=== PATIENT | male | born 1945 | race African-American/Black ===

== ENCOUNTER 2016-04-16 14:13 | Inpatient (IN) ==
--- NOTE | 2016-04-16 14:54 | EKG Report ---
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
[2016-04-16] MEDS ORDERED: SODIUM CHLORIDE 0.9% 1,000 ML IV STA (15:24)
[2016-04-16 15:40] LABS: Basophils % 0.1 % (0.0-0.8); Eosinophils # 0.1 10*3/uL (0.0-0.87); Eosinophils % 1.3 % (0.00-10.9); Hematocrit 36.3 VOL% (42.0-52.0); Hemoglobin 11.7 GM/DL (14.0-18.0); Immature Granulocytes % 0.4 %; Immature Granulocytes Absolute 0.03 #; Lymphocytes # 0.4 10*3/uL (1.4-4.0); Lymphocytes % 5.3 % (21.2-54.2); Mean Corpuscular HGB Conc 32.2 GM/DL (32-36); Mean Corpuscular Hemoglobin 29 PG (27-34); Mean Corpuscular Volume 88.3 FL (87-102); Mean Platelet Volume 11.4 FL (9.6-12.0); Monocytes # 0.6 10*3/uL (0.11-0.8); Monocytes % 8.1 % (1.7-12.7); Neutrophils # 5.7 10*3/uL (1.4-7.4); Neutrophils % 84.8 % (38.7-73.9); Red Blood Count 4.11 10*6/uL (3.8-5.5); Red Cell Distribution Width 14.1 % (9.3-17.3); White Blood Count 6.8 10*3/uL (4.5-13.71)
[2016-04-16 15:41] LABS: Platelet Count 84 10*3/uL (130-400)
--- NOTE | 2016-04-16 15:49 | XRay Report ---
Referring Physician: Neal Ramos Exam: XR chest 1V portable Date: April 16, 2016 at 2:58 PM Reason: Shortness of breath Comparison: Chest one view portable November 19, 2015 Findings: The cardiac silhouette is upper normal in size. There are scattered opacities within the mid and lower lung zones bilaterally, and the interstitial markings are prominent. This could represent pulmonary edema and/or pneumonia. No pneumothorax or definite pleural fluid is identified. No acute osseous process is seen. Surgical clips are noted at the left neck. Impression: There are scattered opacities within the mid and lower lung zones bilaterally, mainly in the right infrahilar region. The interstitial markings are also prominent. This could represent pulmonary edema and/or pneumonia. Followup is recommended to confirm resolution. PROCEDURE INTERPRETED AT [facility] DEPARTMENT OF RADIOLOGY Final Report Signed by: Dr. Berto Dugan
--- NOTE | 2016-04-16 15:49 | CT Report ---
CT head/brain wo con Indication: Altered metal status. CT BRAIN WITHOUT CONTRAST DLP: 921 mGy*cm Comparison: 05/11/2014. Date of admission: 04/16/2016. Technique: Axial noncontrast CT images of the brain were obtained. Findings: No acute hemorrhage, mass or mass effect. Generalized atrophy and patchy periventricular white matter hypodensity is present throughout both convexities. Cortical ventura-white junction and structures of the basal ganglia are well-defined. No bone lesions are shown. Internal auditory canals are symmetric. Because of thickening of the maxillary and ethmoid air cells noted. Impression: No acute intracranial pathology. Generalized atrophy and changes consistent with microvascular disease. Chronic maxillary and ethmoid sinus disease. PROCEDURE INTERPRETED AT [facility] DEPARTMENT OF RADIOLOGY Final Report Signed by: Elmer Johnson M.D.
[2016-04-16 15:59] LABS: Apearance,Urine CLOUDY (Clear); Bacteria,Urine Occasional /HPF (Few); Bilirubin,Urine Negative (Negative); Blood, Urine Small mg/dL (Negative); Glucose,Urine (UA) >=500 mg/dL (Negative); Ketones,Urine 5 mg/dL (Negative); Nitrite,Urine Negative (Negative); Protein,Urine >=500 MG/DL; RBC,Urine 2 /HPF (0-4); Squamous Epithelial Cell,Urine Occasional /HPF (0-10); Urine Color Yellow (Yellow); Urine Specific Gravity 1.014 (1.001-1.035); WBC,Urine 10 /HPF (0-6)
[2016-04-16 16:05] LABS: INR 1.1; PT Patient Result 11.7 SECS; Partial Thromboplastin Time 34.5 SECS (0-40)
[2016-04-16 16:07] LABS: Albumin 3.5 G/DL (3.4-5.0); Bilirubin,Total 1.1 MG/DL (0.2-1.0); Lactic Acid 2.2 MMOL/L (0.4-2.0); Osmolality,Calculated 290.3 MOS/KG (273-304); Potassium 3.4 MMOL/L (3.5-5.1); Total Protein 6.7 G/DL (6.4-8.3)
[2016-04-16 16:14] LABS: Barbiturates Screen,Urine Negative (Negative); Benzodiazepines Screen,Urine Negative (Negative); Cannabinoid Screen,Urine Negative (Negative); Opiate Screen,Urine Negative (Negative); Phencyclidine Screen,Urine Negative (Negative)
[2016-04-16 16:23] LABS: Troponin I Only 0.202 NG/ML (0.00-0.045)
[2016-04-16] MEDS ORDERED: cefTRIAXone 1,000 MG in SODIUM CHLORIDE 0.9% 100 ML IV STA (17:39)
--- NOTE | 2016-04-16 17:47 | Emergency Department Note ---
Jose Quintanilla Brittany, am scribing for, and in the presence of, Neal Ramos Jr., MD 14:55. Rachel Quintanilla Marvin Jr., MD, personally performed the services described in this documentation, ascribed by Karina Garcia in my presence, and it is both accurate and complete 747 . Arrival - Arrival Chief Complaint: Abdominal / Flank Pain Stated Complaint: projectile vomiting, fever, abdominal pain ED Nursing Triage Note: Patient transferred from dialysis for a complaint of projectile vomiting, right lower abdominal quadrant pain, and fever. His fever with Metro was 102.6, his current temperature is 99.1 Mode of Arrival: Stretcher Limitations: No Limitations Source: Patient, RN Notes Reviewed - History of Present Illness HPI Narrative: Patient is a 71 y/o black male presenting to the ED by EMS with c/o abdominal pain and vomiting with an onset of today. Patient states that while at dialysis , he began to "feel rough" and vomited four times. Patient notes that he felt fine prior to going to dialysis. He describes abdominal pain as "cramping while at dialysis, but feeling a little better now." Patient notes that he is slightly short of breath and notes this is something new for him, beginning today. He states that he did not know he had any fever today, per triage note patient en route to the ED had a fever of 102.6 and as of current temperature is 99.2. Patient denies having a history of heart problems. He is a patient of Dr. Valladares. Patient has no other complaint/pain in the ED at this time. Allergies/Adverse Reactions: Allergies Allergy/AdvReac Type Severity Reaction Status Date / Time No Known Drug Allergies Allergy Verified 11/19/15 12:30 Home Medications: Home Medications Medication Instructions Recorded Confirmed Type Amiodarone Tab [Cordarone Tab] 200 mg PO DAILY 03/27/16 03/27/16 History Aspirin [Ecotrin] 81 mg PO DAILY 03/27/16 03/27/16 History Atorvastatin [Lipitor] 20 mg PO DAILY 03/27/16 03/27/16 History Ciprofloxacin Tab [Cipro Tab] 500 mg PO Q12HR #20 tablet 03/27/16 Rx Doxazosin [Cardura] 1 mg PO BID 03/27/16 03/27/16 History Insulin Glargine [Lantus] 30 unit SUBCUT BEDTIME 03/27/16 03/27/16 History Isosorbide Mononitrate [Isosorbide 60 mg PO DAILY 03/27/16 03/27/16 History Mononitrate ER] Montelukast Tab [Singulair Tab] 10 mg PO BEDTIME 03/27/16 03/27/16 History Tamsulosin [Flomax] 0.4 mg PO BID 03/27/16 03/27/16 History Tizanidine HCl [Zanaflex] 2 mg PO Q6H #40 capsule 03/27/16 Rx hydrALAZINE TAB [Apresoline Tab] 100 mg PO TID 03/27/16 03/27/16 History predniSONE TAB [PredniSONE] 20 mg PO DAILY #15 tablet 03/27/16 Rx Calcium Acetate [Calcium Acetate] 667 mg PO 5X DAILY 04/16/16 04/16/16 History Review of System - Review of System 12 point system: reviewed and no additional remarkable complaints except as stated - Review of System Constitutional: Present: fever Respiratory: Present: respiratory distress Gastrointestinal: Present: abdominal pain, nausea, vomiting Medical,Surgical,& Family Hx - Medical History Cardio: History of: Hypertension Endocrine: History of: Diabetes Mellitus (IDDM) Renal: History of: Dialysis, Renal Failure (on dialysis on M-W-F right AV fistula) - Surgical History Orthopedic Surgeries: Surgical HX of;: Total Knee Replacement (Left knee x2) - Social History Smoking Status: Never smoker Frequency of Alcohol Use: None Type of Drug Use: None Exam Physical Examination: General: Well-developed well-nourished, no apparent distress. Very hard of hearing but can understand and follow along. Head: Normocephalic, atraumatic. Eyes: PERRLA, EOMI. Nose: No obvious acute deformities or discharge. Mouth: No obvious acute injury. Neck: Full range of motion without obvious pain. No midline tender to palpation. Lymphatic: no significant lymphadenopathy noted. Lungs: No rales or wheezing the patient slightly O2 sats is in the low to mid 90s. Heart: Tachycardiac, irregular, no obvious mummers. Abdomen: Soft nontender, nondistended, normal active bowel sounds. Skin: No obivous acute lesions noted Musculoskeletal: No gross deformities. Neurological: No focal findings, cranial nerves II through XII grossly normal. Psychiatric: Appropriate mood.. : Deferred Vital Signs: Vital Signs Temperature 99.1 F 04/16/16 14:22 Pulse Rate 125 H 04/16/16 14:22 Respiratory Rate 22 04/16/16 14:22 Blood Pressure 162/92 04/16/16 14:22 O2 Sat by Pulse Oximetry 93 L 04/16/16 14:22 Course Course Narrative: Differential diagnosis, nausea and vomiting, electrolyte disturbance, new onset atrial fibrillation, cardiopulmonary disease - Reevaluation(s) Reevaluation #1: Patient's condition unchanged. Heart rate still running in the 120s and 130s. Troponin is elevated. I spoke with Dr. Cardenas who said admit the patient to the hospitalist and she would consult. I called the hospitalist service and they accept this admission. Time: 17:14 Results - Labs CBC & BMP: 04/16/16 15:27 04/16/16 15:27 Lab Results: I have reviewed the patients labs Labs: Laboratory Tests 04/16/16 15:27 WBC 6.8 RBC 4.11 Hgb 11.7 L Hct 36.3 L MCV 88.3 MCH 29 MCHC 32.2 RDW 14.1 Plt Count 84 L MPV 11.4 Neut % (Auto) 84.8 H Lymph % (Auto) 5.3 L Mcdowell % (Auto) 8.1 Eos % (Auto) 1.3 Baso % (Auto) 0.1 Neut # (Auto) 5.7 Lymph # (Auto) 0.4 L Mcdowell # (Auto) 0.6 Eos # (Auto) 0.1 Baso # (Auto) 0.0 Immature Gran % 0.4 Nucleated RBC % 0.0 Immature Gran # 0.03 Nucleated RBCs # 0.00 Laboratory Tests 04/16/16 15:27 Urine Color Yellow Urine Appearance Cloudy Urine pH 6.0 Ur Specific [place] 1.014 Urine Protein >=500 Urine Glucose (UA) >=500 Urine Ketones 5 Urine Blood Small Urine Nitrate Negative Urine Bilirubin Negative Urine Urobilinogen 2.0 H Urine Leukocytes Trace Urine RBC 2 Urine WBC 10 Ur Squamous Epith Cells Occasional Urine Bacteria Occasional Laboratory Tests 04/16/16 15:27 Ammonia 15 Microbiology 04/16/16 15:27 Nasal Aspirate Influenza Types A,B Antigen (SHIV) - Final Negative for Influenza A Ag Negative for Influenza B Ag Laboratory Tests 04/16/16 04/16/16 04/16/16 15:27 15:27 15:27 INR 1.1 PT Patient/Control Mix 11.7 Circ Anticoag PTT 34.5 Sodium 141 Potassium 3.4 L Chloride 98 Carbon Dioxide 31 Anion Gap 15.4 H BUN 28 H Creatinine 7.20 H GFR Calculation 10 BUN/Creatinine Ratio 3.00 L Glucose 169 H Calculated Osmolality 290.3 Lactic Acid 2.2 H Calcium 8.0 L Total Bilirubin 1.10 H AST 24 ALT 17 Alkaline Phosphatase 63 Ammonia 15 Total Protein 6.7 Albumin 3.5 Globulin 3.2 Albumin/Globulin Ratio 1.0 L Urine Opiates Screen Negative Ur Barbiturates Screen Negative Ur Phencyclidine Scrn Negative U Amphetamine/Methamph Negative U Benzodiazepines Scrn Negative U Cocaine Metab Screen Negative U Cannabinoids Screen Negative Laboratory Tests 04/16/16 04/16/16 15:27 15:27 Troponin I 0.202 H Urine Opiates Screen Negative Ur Barbiturates Screen Negative Ur Phencyclidine Scrn Negative U Amphetamine/Methamph Negative U Benzodiazepines Scrn Negative U Cocaine Metab Screen Negative U Cannabinoids Screen Negative Serum Alcohol < 15 L - Diagnostic Findings Procedure: Chest x-ray: report reviewed by me (There are scattered opacities within the mid and lower lung zones bilaterally, mainly in the right infrahilar region. The interstitial markings are also prominent. This could represent pulmonary edema and/or pneumonia. Followup is recommended to confirm resolution. ), CT: report reviewed by me (head/brain wo contrast: No acute intracranial pathology. Generalized atrophy and changed consistent with microvascular disease. Chronic maxillary and ethmoid sinus disease.) Disposition Clinical Impression: Chronic kidney disease with end stage renal failure on dialysis, Vomiting, Elevated troponin, New onset atrial fibrillation, Febrile illness, Pneumonia Case discussed with: patient Disposition: Still a Patient Condition: Stable Time of Disposition: 17:47
[2016-04-16] MEDS ORDERED: cefTRIAXone 1,000 MG VIAL ONE (18:17)
--- NOTE | 2016-04-16 18:28 | Hospitalist History & Physical ---
Assessment and Plan - Time spent with patient Time spent with patient: Greater than 30 minutes (1) Chronic kidney disease with end stage renal failure on dialysis Status: Acute Current Visit: Yes (2) Febrile illness Status: Acute Current Visit: Yes (3) Vomiting Status: Acute Assessment and plan: we will admit pt and monitor start on cardizem infusion, ask cardiology to follow repeat troponin and EKG in am Pt will be admitted to Dr. Valladares who is functioning as a hospitalist this weekend, also pt's renal DrAnmol PRLex meds DVT prophylaxis routine labs in AM further plan and addendum to follow per Dr. Zelaya and Dr. Valladares Current Visit: Yes History of Present Illness Chief complaint: vomiting History of present illness: Mr. Ortega is a 71 year old male who presents to the ER today from dialysis. He states he had been on dialysis about 2 hours when he suddenly began to vomit. He says he vomited about 4 times and has been fine since. He denies feeling bad or nauseated prior to dialysis and feels well now. He denies recent illness, denies chest pain, shortness of breath. He was documented to have a fever of 102 at dialysis but his fever here was 99. He also tells me that when he was vomiting he had some left sided abdominal pain which has now resolved. He is hemodynamically stable at present, labs reveal a mildly elevated troponin, could be chronic due to his renal disease. Also noted to have elevated bilirubin. Will recheck. He was also noted to be in Atrial fibrillation at a rate of 120 on arrival to ER, he has been started on a Cardizem infusion and ER physician spoke with Dr. Cardenas concerning this and his elevated trop. Mr. Ortega has a PMH of HTN, DM, CKD with dialysis. PSH of dialysis access placement and left knee replacement. He does not smoke or drink. Still makes a little urine. Dr. Valladares is his renal Dr. Home Medications Medication Instructions Recorded Confirmed Type Amiodarone Tab [Cordarone Tab] 200 mg PO DAILY 03/27/16 03/27/16 History Aspirin [Ecotrin] 81 mg PO DAILY 03/27/16 03/27/16 History Atorvastatin [Lipitor] 20 mg PO DAILY 03/27/16 03/27/16 History Ciprofloxacin Tab [Cipro Tab] 500 mg PO Q12HR #20 tablet 03/27/16 Rx Doxazosin [Cardura] 1 mg PO BID 03/27/16 03/27/16 History Insulin Glargine [Lantus] 30 unit SUBCUT BEDTIME 03/27/16 03/27/16 History Isosorbide Mononitrate [Isosorbide 60 mg PO DAILY 03/27/16 03/27/16 History Mononitrate ER] Montelukast Tab [Singulair Tab] 10 mg PO BEDTIME 03/27/16 03/27/16 History Tamsulosin [Flomax] 0.4 mg PO BID 03/27/16 03/27/16 History Tizanidine HCl [Zanaflex] 2 mg PO Q6H #40 capsule 03/27/16 Rx hydrALAZINE TAB [Apresoline Tab] 100 mg PO TID 03/27/16 03/27/16 History predniSONE TAB [PredniSONE] 20 mg PO DAILY #15 tablet 03/27/16 Rx Calcium Acetate [Calcium Acetate] 667 mg PO 5X DAILY 04/16/16 04/16/16 History Allergies Allergy/AdvReac Type Severity Reaction Status Date / Time No Known Drug Allergies Allergy Verified 11/19/15 12:30 Medical,Surgical,& Family Hx - Medical History Cardio: History of: Hypertension Endocrine: History of: Diabetes Mellitus (IDDM) Renal: History of: Dialysis, Renal Failure (on dialysis on M-W-F right AV fistula) - Surgical History Orthopedic Surgeries: Surgical HX of;: Total Knee Replacement (Left knee x2) - Social History Smoking Status: Never smoker Frequency of Alcohol Use: None Type of Drug Use: None 12 point system: reviewed and no additional remarkable complaints except as stated Exam - Constitutional Vitals: Period Temp Pulse Resp BP Sys/Hernandez Pulse Ox Last 24 Hr 99.1 F-99.1 F 120-125 22-22 162-162/92-92 93 General appearance: no acute distress, over weight - Head Head exam: Present: normal inspection, normocephalic - Eye Eye exam: Present: EOMI, conjunctival injection. Absent: scleral icterus Pupils: Present: HERMELINDO, normal accommodation - ENT ENT exam: Present: normal exam, normal oropharynx - Neck Neck exam: Present: normal inspection. Absent: lymphadenopathy - Respiratory Respiratory exam: Absent: clear to auscultation bilaterally (coarse bilat, worse in the bases), wheezes - Cardiovascular Cardiovascular exam: Absent: regular rate and rhythm (afib), tachycardia - GI/Abdominal GI/Abdominal exam: Present: normal bowel sounds, soft. Absent: tenderness - Extremities Exam Extremities exam: Present: normal inspection, full ROM. Absent: edema - Back Exam Back exam: Present: normal inspection. Absent: muscle spasm - Neurological Exam Neurological exam: Present: alert, oriented X3 - Psychiatric Psychiatric exam: Present: normal affect, normal mood - Skin Skin exam: Present: normal color, warm, dry Results - Labs CBC & BMP: 04/16/16 15:27 04/16/16 15:27 Lab Results: I have reviewed the past 24 hour labs
[2016-04-16] MEDS ORDERED: AZITHROMYCIN INJ 500 MG in SODIUM CHLORIDE 0.9% 250 ML IV SCH (20:00)
[2016-04-16] MEDS: DILTIAZEM INJ 100 MG in SODIUM CHLORIDE 0.9% 100 ML IV SCH (22:03)
[2016-04-16] MEDS: MONTELUKAST 10 MG TABLET PO SCH (22:03)
[2016-04-16] MEDS: DOXAZOSIN 1 MG TABLET PO SCH (22:03)
[2016-04-16] MEDS: TAMSULOSIN 0.4 MG CAPSULE PO SCH (22:03)
[2016-04-16] MEDS: CALCIUM ACETATE 667 MG CAPSULE PO SCH (22:03)
[2016-04-17 06:29] LABS: Basophils % 0.2 % (0.0-0.8); Eosinophils # 0.1 10*3/uL (0.0-0.87); Eosinophils % 1.1 % (0.00-10.9); Hematocrit 30.7 VOL% (42.0-52.0); Hemoglobin 9.9 GM/DL (14.0-18.0); Immature Granulocytes % 0.6 %; Immature Granulocytes Absolute 0.03 #; Lymphocytes # 0.7 10*3/uL (1.4-4.0); Lymphocytes % 14.5 % (21.2-54.2); Mean Corpuscular HGB Conc 32.2 GM/DL (32-36); Mean Corpuscular Hemoglobin 29 PG (27-34); Mean Platelet Volume 11.4 FL (9.6-12.0); Monocytes # 0.6 10*3/uL (0.11-0.8); Neutrophils # 3.3 10*3/uL (1.4-7.4); Neutrophils % 70.6 % (38.7-73.9); Red Blood Count 3.45 10*6/uL (3.8-5.5); Red Cell Distribution Width 14.1 % (9.3-17.3); White Blood Count 4.6 10*3/uL (4.5-13.71)
[2016-04-17 06:42] LABS: Platelet Count 62 10*3/uL (130-400)
[2016-04-17 07:01] LABS: Calcium 7.6 MG/DL (8.5-10.1); Osmolality,Calculated 290.1 MOS/KG (273-304); Potassium 3.6 MMOL/L (3.5-5.1)
[2016-04-17 07:04] LABS: Hypochromasia Slight
[2016-04-17 07:05] LABS: Microcytosis 1+; Ovalocytes Slight; Platelet Estimate Decreased
[2016-04-17] MEDS ORDERED: AMIODARONE 200 MG TABLET PO SCH (09:00)
[2016-04-17] MEDS: TAMSULOSIN 0.4 MG CAPSULE PO SCH ×2 (09:45→21:11)
[2016-04-17] MEDS: ASPIRIN EC 81 MG TABLET PO SCH (09:45)
[2016-04-17] MEDS: ISOSORBIDE MONONITRATE 60 MG TABLET PO SCH (09:45)
[2016-04-17] MEDS: ATORVASTATIN 20 MG TABLET PO SCH (09:45)
[2016-04-17] MEDS: DOXAZOSIN 1 MG TABLET PO SCH ×2 (09:45→21:12)
[2016-04-17] MEDS: CALCIUM ACETATE 667 MG CAPSULE PO SCH ×3 (09:45→21:12)
[2016-04-17] MEDS: cefTRIAXone 1,000 MG in SODIUM CHLORIDE 0.9% 100 ML IV SCH (10:57)
--- NOTE | 2016-04-17 12:24 | Hospitalist Progress Note ---
Assessment and Plan (1) End stage renal disease Status: Chronic Assessment and plan: Currently dialyzes at the [facility] dialysis unit on a Tuesday schedule. Volume status is acceptable. Metabolic panel is stable. Current Visit: Yes (2) Vomiting Status: Resolved Current Visit: Yes (3) Elevated troponin Status: Acute Assessment and plan: Serial cardiac enzymes. Patient with evidence of atrial fibrillation. Current Visit: Yes (4) New onset atrial fibrillation Status: Acute Assessment and plan: Currently on Cardizem infusion. Have asked for cardiology consult. Echocardiogram. Current Visit: Yes (5) Febrile illness Status: Acute Current Visit: Yes Hospitalist: Subjective Interval history: Patient was admitted on last evening for from dialysis with new onset atrial fibrillation. Moreover patient was found to have fever and congestion. He remains in atrial fibrillation at this time. He is on a Cardizem infusion rate is better controlled. No further fevers since last night. CT scan of the head shows some chronic microvascular changes no acute changes. Exam - Constitutional Vitals: Period Temp Pulse Resp BP Sys/Hernandez Pulse Ox Last 24 Hr 100.4 F-101 F 78-124 16-20 115-181/55-82 95-98 General appearance: over weight - Respiratory Respiratory exam: Present: clear to auscultation bilaterally - Cardiovascular Cardiovascular exam: Present: irregular rhythm - GI/Abdominal GI/Abdominal exam: Present: normal bowel sounds - Extremities Exam Extremities exam: Present: full ROM - Neurological Exam Neurological exam: Present: alert - Psychiatric Psychiatric exam: Present: normal affect Results - Labs CBC & BMP: 04/17/16 06:00 04/17/16 06:00 - EKG EKG shows: atrial fibrillation
--- NOTE | 2016-04-17 12:49 | Cardiology Consult Note ---
Assessment and Plan (1) New onset atrial fibrillation Status: Acute Assessment and plan: He has an uncontrolled ventricular rate. We will advance oral calcium channel blockers. Currently, I'm not going to initiate therapeutic anticoagulation because of his worsening thrombocytopenia. Current Visit: Yes (2) Elevated troponin Status: Acute Assessment and plan: This is nonspecific in a patient with end-stage renal disease and chronically elevated troponin. Clinically he does not appear to have an ACS. We will check another value from this morning's labs. We will check an echocardiogram. Current Visit: Yes (3) Thrombocytopenia Status: Acute Assessment and plan: I defer evaluation and treatment of this to the general hospitalist. Current Visit: Yes (4) Chronic kidney disease with end stage renal failure on dialysis Status: Chronic Current Visit: Yes (5) Febrile illness Status: Acute Assessment and plan: He is being worked up and treated by the hospitalist service. Current Visit: Yes (6) Pneumonia Status: Acute Current Visit: Yes (7) Hypertension Status: Chronic Current Visit: Yes Qualifiers: Hypertension type: unspecified secondary hypertension Qualified Code(s): I15.9 - Secondary hypertension, unspecified; I15 - Secondary hypertension (8) Diabetes mellitus Status: Chronic Current Visit: Yes History of Present Illness - Data of Consult Patient: new to practice Consult date: 04/17/16 Requesting Physician: Katherine Zelaya - Consult Narrative Reason for consult: afib History of present illness: Mr. Ortega is a 71 year old male without a prior cardiac history. He does have end-stage renal disease and hypertension. He was admitted from the dialysis center after he began experiencing projectile vomiting. By the time he got to the emergency room his vomiting episodes had stopped. He was found to be in atrial fibrillation with a mildly rapid ventricular response. However, he also had cough, symptoms of bronchitis and fever. He has been admitted for further treatment. He denies any current chest pain, or any antecedent chest discomfort. There has not been a decline in his functional status. He denies any orthopnea. He does occasionally have lower extremity edema which is chronic and overall this is unchanged for him. He has no awareness of his tachycardia or irregular heartbeats. He has been told in the past that he has an irregular heartbeat. He is observed to have cytopenia. He has no knowledge of a previous history of this, and denies any trouble with bleeding. He does not have a history of GI bleeding. He has cough that is productive, the color of the sputum is unknown. He has had some fevers and chills. He has some chronic arthralgias and fatigue. The remainder of 12 point review of systems is otherwise negative in detail. CC: Curtis Valladares Jr., MD - Home Medications and Allergies Home Medications: Home Medications Medication Instructions Recorded Confirmed Type Amiodarone Tab [Cordarone Tab] 200 mg PO DAILY 03/27/16 04/16/16 History Aspirin [Ecotrin] 81 mg PO DAILY 03/27/16 04/16/16 History Atorvastatin [Lipitor] 20 mg PO DAILY 03/27/16 04/16/16 History Doxazosin [Cardura] 1 mg PO BID 03/27/16 04/16/16 History Insulin Glargine [Lantus] 30 unit SUBCUT BEDTIME 03/27/16 04/16/16 History Isosorbide Mononitrate [Isosorbide 60 mg PO DAILY 03/27/16 04/16/16 History Mononitrate ER] Montelukast Tab [Singulair Tab] 10 mg PO BEDTIME 03/27/16 04/16/16 History Tamsulosin [Flomax] 0.4 mg PO BID 03/27/16 04/16/16 History hydrALAZINE TAB [Apresoline Tab] 100 mg PO TID 03/27/16 04/16/16 History Calcium Acetate [Calcium Acetate] 667 mg PO TID 04/16/16 04/16/16 History Omeprazole 40 mg PO DAILY 04/16/16 04/16/16 History Allergies/Adverse Reactions: Allergies Allergy/AdvReac Type Severity Reaction Status Date / Time No Known Drug Allergies Allergy Verified 11/19/15 12:30 12 point system: reviewed and no additional remarkable complaints except as stated Medical,Surgical,& Family Hx - Medical History Cardio: History of: Hypertension Endocrine: History of: Diabetes Mellitus (IDDM) Renal: History of: Dialysis, Renal Failure (on dialysis on M-W-F right AV fistula) - Surgical History Orthopedic Surgeries: Surgical HX of;: Total Knee Replacement (Left knee x2) - Social History Smoking Status: Never smoker Frequency of Alcohol Use: None Type of Drug Use: None Functional capacity: independent ambulation Physical Examination Vital Signs Temp Pulse Resp BP Pulse Ox 99.1 F 120 H 22 162/92 93 L 04/16/16 14:22 04/16/16 14:22 04/16/16 14:22 04/16/16 14:22 04/16/16 14:22 Other: General appearance: Obese, somnolent but arousable, no acute distress - Head Head exam: Present: normal inspection, normocephalic, atraumatic. Absent: hematoma, laceration - Eye Eye exam: Present: EOMI, muddy sclera. Absent: conjunctival injection, nystagmus, periorbital swelling, laceration to eyelids Pupils: Present: PERRL. Absent: constricted, dilated, fixed, irregular, unequal - ENT ENT exam: Present: normal exam, normal external ear exam - Neck Neck exam: Present: normal inspection. Absent: lymphadenopathy, meningismus, tenderness, thyromegaly - Respiratory Respiratory exam: Present: Mild, scant rhonchi. Absent: accessory muscle use, chest wall tenderness - Cardiovascular Cardiovascular exam: Present: Tachycardic rate with irregularly irregular rhythm. Absent: carotid bruit, gallop, JVD, rubs - GI/Abdominal GI/Abdominal exam: Present: normal bowel sounds, soft. Absent: distended, firm , guarding, hernia, mass, tenderness, rebound. - Extremities Exam Extremities exam: Present: Mild bilateral lower extremity edema with mildly decreased pulses. Absent: calf tenderness - Back Exam Back exam: Present: normal inspection. Absent: muscle spasm, vertebral tenderness - Neurological Exam Neurological exam: Present: alert, oriented X3, grossly intact without resting or intention tremor - Psychiatric Psychiatric exam: Present: normal affect, normal mood - Skin Skin exam: Present: normal color, warm, dry, intact. Absent: cyanosis, diaphoretic, rash, urticaria Result/EKG - Labs CBC & BMP: 04/17/16 06:00 04/17/16 06:00 Labs: Laboratory Results - last 24 hr 04/16/16 04/17/16 04/17/16 20:00 06:00 06:00 WBC 4.6 D RBC 3.45 L Hgb 9.9 L Hct 30.7 L MCV 89.0 MCH 29 MCHC 32.2 RDW 14.1 Plt Count 62 L D MPV 11.4 Neut % (Auto) 70.6 Lymph % (Auto) 14.5 L Emery % (Auto) 13.0 H Eos % (Auto) 1.1 Baso % (Auto) 0.2 Neut # (Auto) 3.3 Lymph # (Auto) 0.7 L Emery # (Auto) 0.6 Eos # (Auto) 0.1 Baso # (Auto) 0.0 Immature Gran % 0.6 Nucleated RBC % 0.0 Immature Gran # 0.03 Nucleated RBCs # 0.00 Platelet Estimate Decreased Hypochromasia Slight Microcytosis 1+ Ovalocytes Slight Sodium 142 Potassium 3.6 Chloride 101 Carbon Dioxide 30 Anion Gap 14.6 BUN 36 H Creatinine 8.60 H GFR Calculation 8 BUN/Creatinine Ratio 4.00 L Glucose 98 POC Glucose 167 H Calculated Osmolality 290.1 Calcium 7.6 L - Impressions Impressions: Telemetry demonstrates persistent atrial fibrillation. - Diagnostic Findings Procedure: Chest x-ray: report reviewed by ny - EKG EKG results: interpreted by ny EKG shows: tachycardia, atrial fibrillation (IVCD)
[2016-04-17] MEDS: DILTIAZEM CD 240 MG CAPSULE PO SCH (13:17)
[2016-04-17] MEDS ORDERED: DILTIAZEM CD 120 MG CAPSULE PO SCH (13:30)
[2016-04-17] MEDS ORDERED: DILTIAZEM 60 MG TABLET PO SCH (15:00)
[2016-04-17] MEDS ORDERED: ENOXAPARIN 40 MG/0.4 ML SYRINGE SUBCUT SCH (15:00)
[2016-04-17 15:20] LABS: Troponin I Only 2.63 NG/ML (0.00-0.045)
[2016-04-17] MEDS: ACETAMINOPHEN 325 MG TABLET PO PRN (16:23)
[2016-04-17] MEDS ORDERED: VANCOMYCIN INJ 1,000 MG in SODIUM CHLORIDE 0.9% 250 ML IV SCH (16:30)
[2016-04-17] MEDS: VANCOMYCIN INJ 1,000 MG in SODIUM CHLORIDE 0.9% 250 ML IV SCH (17:32)
[2016-04-17] MEDS: DILTIAZEM INJ 100 MG in SODIUM CHLORIDE 0.9% 100 ML IV SCH (17:34)
[2016-04-17] MEDS: MONTELUKAST 10 MG TABLET PO SCH (21:11)
[2016-04-18] MEDS: ACETAMINOPHEN 325 MG TABLET PO PRN (04:25)
[2016-04-18] MEDS: cefTRIAXone 1,000 MG in SODIUM CHLORIDE 0.9% 100 ML IV SCH (09:26)
[2016-04-18] MEDS: ASPIRIN EC 81 MG TABLET PO SCH (09:27)
[2016-04-18] MEDS: DILTIAZEM CD 240 MG CAPSULE PO SCH (09:27)
[2016-04-18] MEDS: ISOSORBIDE MONONITRATE 60 MG TABLET PO SCH (09:27)
[2016-04-18] MEDS: ATORVASTATIN 20 MG TABLET PO SCH (09:28)
[2016-04-18] MEDS: CALCIUM ACETATE 667 MG CAPSULE PO SCH ×3 (09:28→20:39)
[2016-04-18] MEDS: DOXAZOSIN 1 MG TABLET PO SCH ×2 (09:28→20:39)
[2016-04-18] MEDS: TAMSULOSIN 0.4 MG CAPSULE PO SCH ×2 (09:28→20:39)
--- NOTE | 2016-04-18 10:20 | ECHO Report ---
Enrike Ortega Exam Date: 04/17/2016 13:15 Referring Physician: Technologist: Ivory Manzano RDCS Age: 71 Ht (in): Wt (lb): Gender: M Exam Location: [facility] Echo Indications: Atrial fibrillation, Elevated troponin, Thrombocytopenia, Chronic kidney disease, unspecified, End stage renal disease, Febrile illness, Pneumonia, Essential (primary) hypertension, IDDM, Chronic fatigue, unspecified BP: / HR: Rhythm: Sinus Technical Quality: Fair IMPRESSIONS Normal LV systolic function, ejection fraction 60%. Grade 1/4 diastolic dysfunction. Moderate concentric left ventricular hypertrophy. Mildly dilated right ventricle. Mild biatrial enlargement. Mild mitral and tricuspid regurgitation. MEASUREMENTS (Male / Female) Normal Values 2D ECHO LV Diastolic Diameter PLAX 4.1 cm 4.2 - 5.9 / 3.9 - 5.3 cm LV Systolic Diameter PLAX 2.7 cm LV Fractional Shortening PLAX 34.6 % IVS Diastolic Thickness 1.5 cm 0.6 - 1.0 / 0.6 - 0.9 cm LVPW Diastolic Thickness 1.5 cm 0.6 - 1.0 / 0.6 - 0.9 cm RV Internal Dim ED PLAX 4.4 cm Aortic Root Diameter 2.8 cm LA Systolic Diameter LX 4.8 cm 3.0 - 4.0 / 2.7 - 3.8 cm FINDINGS Left Ventricle Normal left ventricular cavity size. Moderate left ventricular hypertrophy. Left ventricular ejection fraction is estimated at 60 %. Right Ventricle Mildly dilated. Right Atrium The right atrium is mildly enlarged. Left Atrium Mildly increased left atrial size. Mitral Valve Mild mitral annular calcification. Trace to mild mitral valve regurgitation. Aortic Valve Aortic valve sclerosis without stenosis or regurgitation. Tricuspid Valve Morphologically normal tricuspid valve. Trace tricuspid valve regurgitation. Pulmonic Valve Morphologically normal pulmonic valve without significant stenosis. There is no pulmonic regurgitation. Pericardium Normal pericardium without effusion. Aorta Normal ascending aorta dimension. Kelley Cardenas MD (Electronically Signed) Final Date: 18 April 2016 10:19
--- NOTE | 2016-04-18 11:32 | Cardiology Progress Note ---
Assessment and Plan (1) New onset atrial fibrillation Status: Acute Assessment and plan: He has an improved control of his ventricular rate. We will advance oral calcium channel blockers. Currently, I'm not going to initiate therapeutic anticoagulation because of his worsening thrombocytopenia. We will keep him on aspirin. Current Visit: Yes (2) Elevated troponin Status: Acute Assessment and plan: He has had a small non-ST elevation myocardial infarction in the setting of atrial fibrillation with rapid ventricular response. In general, he needs to recover from his febrile illness and we need to determine the etiology and course of this thrombocytopenia before any invasive strategy can be designed. We are going to continue with medical treatment for now. He is not being anticoagulated because of his profound thrombocytopenia. Current Visit: Yes (3) Thrombocytopenia Status: Acute Assessment and plan: I defer evaluation and treatment of this to the general hospitalist. Current Visit: Yes (4) Chronic kidney disease with end stage renal failure on dialysis Status: Chronic Current Visit: Yes (5) Febrile illness Status: Acute Assessment and plan: He is being worked up and treated by the hospitalist service. Current Visit: Yes (6) Pneumonia Status: Acute Current Visit: Yes (7) Hypertension Status: Chronic Current Visit: Yes Qualifiers: Hypertension type: unspecified secondary hypertension Qualified Code(s): I15.9 - Secondary hypertension, unspecified; I15 - Secondary hypertension (8) Diabetes mellitus Status: Chronic Current Visit: Yes Cardiology - PN: Subj Interval history: The patient was admitted from dialysis with projectile vomiting, nausea, fevers , cough and generalized illness. He was found to be also in atrial fibrillation with rapid ventricular response which is now controlled. He has been discovered to have a thrombocytopenia of unclear etiology. He had a non- ST elevation myocardial infarction that was small at the time of his presentation and likely related to his A. fib with RVR. Clinically he feels much better. He continues to cough, it is productive, he doesn't know the color. He has Escherichia coli in his urine. He denies any chest pain or shortness of breath. His temperatures are starting to decrease. Exam (Progress Note) - Constitutional Vitals: Period Temp Pulse Resp BP Sys/Hernandez Pulse Ox Last 24 Hr 98.6 F-102.1 F 20-118 16-20 112-145/57-66 90-99 Exam: General appearance: Obese, somnolent but arousable and overall more alert today , no acute distress - Head Head exam: Present: normal inspection, normocephalic, atraumatic. Absent: hematoma, laceration - Eye Eye exam: Present: EOMI, muddy sclera. Absent: conjunctival injection, nystagmus, periorbital swelling, laceration to eyelids Pupils: Absent: constricted, dilated, fixed, irregular, unequal - ENT ENT exam: Present: He seems to be somewhat hard of hearing, normal external ear exam - Neck Neck exam: Present: normal inspection although exam is limited by his mena. Absent: lymphadenopathy, meningismus, tenderness, thyromegaly - Respiratory Respiratory exam: Present: Coarse rhonchi throughout both lung nguyen. Absent: accessory muscle use, chest wall tenderness - Cardiovascular Cardiovascular exam: Present: Normal rate with irregularly irregular rhythm. Absent: carotid bruit, gallop, JVD, rubs - GI/Abdominal GI/Abdominal exam: Present: normal bowel sounds, soft. Absent: distended, firm , guarding, hernia, mass, tenderness, rebound. - Extremities Exam Extremities exam: Present: Mild bilateral lower extremity edema with decreased pulses. Absent: calf tenderness - Back Exam Back exam: Present: normal inspection. Absent: muscle spasm, vertebral tenderness - Neurological Exam Neurological exam: Present: alert, oriented X3, grossly intact without resting or intention tremor - Psychiatric Psychiatric exam: Present: normal affect, normal mood - Skin Skin exam: Present: normal color, warm, dry, intact. Absent: cyanosis, diaphoretic, rash, urticaria Result/EKG - Labs CBC & BMP: 04/17/16 06:00 04/17/16 06:00 Lab Results: I have reviewed the past 24 hour labs Labs: Laboratory Results - last 24 hr 04/17/16 04/17/16 04/17/16 05:59 14:31 21:50 Total Creatine Kinase 554 H 724 H D 876 H D CK-MB (CK-2) 3.7 H 2.5 2.5 Troponin I 3.610 H D 2.630 H D 2.090 H D
[2016-04-18 11:56] LABS: Basophils % 0.3 % (0.0-0.8); Eosinophils # 0.1 10*3/uL (0.0-0.87); Eosinophils % 1.9 % (0.00-10.9); Hematocrit 27.3 VOL% (42.0-52.0); Hemoglobin 8.8 GM/DL (14.0-18.0); Immature Granulocytes % 0.5 %; Immature Granulocytes Absolute 0.02 #; Lymphocytes % 25.2 % (21.2-54.2); Mean Corpuscular HGB Conc 32.2 GM/DL (32-36); Mean Corpuscular Hemoglobin 29 PG (27-34); Mean Corpuscular Volume 88.3 FL (87-102); Monocytes # 0.5 10*3/uL (0.11-0.8); Monocytes % 12.7 % (1.7-12.7); Neutrophils # 2.2 10*3/uL (1.4-7.4); Neutrophils % 59.4 % (38.7-73.9); Platelet Count 64 10*3/uL (130-400); Red Blood Count 3.09 10*6/uL (3.8-5.5); Red Cell Distribution Width 14.2 % (9.3-17.3); White Blood Count 3.8 10*3/uL (4.5-13.71)
[2016-04-18 12:25] LABS: Magnesium 1.7 MG/DL (1.8-2.4); Potassium 3.6 MMOL/L (3.5-5.1)
[2016-04-18 12:26] LABS: Platelet Estimate Decreased
[2016-04-18] MEDS ORDERED: ENOXAPARIN 30 MG/0.3 ML SYRINGE SUBCUT SCH (13:00)
--- NOTE | 2016-04-18 13:05 | Hospitalist Progress Note ---
Assessment and Plan (1) End stage renal disease Status: Chronic Assessment and plan: Currently dialyzes at the [place] [facility] dialysis unit on a Tuesday schedule. Volume status is acceptable. Metabolic panel is stable. Current Visit: Yes (2) Vomiting Status: Resolved Current Visit: Yes (3) Elevated troponin Status: Acute Assessment and plan: Serial cardiac enzymes. Patient with evidence of atrial fibrillation. Current Visit: Yes (4) New onset atrial fibrillation Status: Acute Assessment and plan: He is now off the cardene infusion. Current Visit: Yes (5) Febrile illness Status: Acute Current Visit: Yes Hospitalist: Subjective Interval history: The patient is resting. Appears to have had evidence of a myocardial infarction. Continues to be in atrial fibrillation. Blood pressures improved. Evidence of thrombocytopenia although there is some slight improvement in the platelet count. Etiology is in question for this thrombocytopenia. No further fevers. Hemodynamically stable. Remove Corrigan catheter. CBC BMP in a.m. Exam - Constitutional Vitals: Period Temp Pulse Resp BP Sys/Hernandez Pulse Ox Last 24 Hr 98.6 F-102.1 F 20-118 16-20 112-145/57-66 90-99 General appearance: over weight - Head Head exam: Present: normal inspection, other (patient is hard of hearing) - Eye Pupils: Present: HERMELINDO - Respiratory Respiratory exam: Present: clear to auscultation bilaterally - Cardiovascular Cardiovascular exam: Present: irregular rhythm - GI/Abdominal GI/Abdominal exam: Present: normal bowel sounds - Neurological Exam Neurological exam: Present: alert, oriented X3 - Psychiatric Psychiatric exam: Present: normal affect, normal mood Results - Labs CBC & BMP: 04/18/16 11:51 04/18/16 11:51
[2016-04-18] MEDS: MONTELUKAST 10 MG TABLET PO SCH (20:39)
[2016-04-19 06:26] LABS: Eosinophils # 0.1 10*3/uL (0.0-0.87); Eosinophils % 1.3 % (0.00-10.9); Hematocrit 26.4 VOL% (42.0-52.0); Hemoglobin 8.7 GM/DL (14.0-18.0); Immature Granulocytes % 0.3 %; Immature Granulocytes Absolute 0.01 #; Mean Corpuscular Hemoglobin 28 PG (27-34); Mean Corpuscular Volume 86.3 FL (87-102); Mean Platelet Volume 12.1 FL (9.6-12.0); Monocytes # 0.5 10*3/uL (0.11-0.8); Monocytes % 11.6 % (1.7-12.7); Neutrophils # 2.4 10*3/uL (1.4-7.4); Neutrophils % 60.8 % (38.7-73.9); Platelet Count 65 10*3/uL (130-400); Red Blood Count 3.06 10*6/uL (3.8-5.5); Red Cell Distribution Width 13.8 % (9.3-17.3)
[2016-04-19 06:56] LABS: Calcium 7.2 MG/DL (8.5-10.1); Magnesium 1.7 MG/DL (1.8-2.4); Osmolality,Calculated 289.1 MOS/KG (273-304); Potassium 3.5 MMOL/L (3.5-5.1)
[2016-04-19 07:01] LABS: Hypochromasia 2+; Microcytosis 1+; Target Cells Slight
[2016-04-19 07:02] LABS: Burr Cells 1+
[2016-04-19] MEDS: cefTRIAXone 1,000 MG in SODIUM CHLORIDE 0.9% 100 ML IV SCH (09:01)
[2016-04-19] MEDS: ASPIRIN EC 81 MG TABLET PO SCH (09:02)
[2016-04-19] MEDS: DILTIAZEM CD 180 MG CAPSULE PO SCH (09:02)
[2016-04-19] MEDS: CALCIUM ACETATE 667 MG CAPSULE PO SCH ×3 (09:03→21:33)
[2016-04-19] MEDS: DOXAZOSIN 1 MG TABLET PO SCH ×2 (09:03→21:33)
[2016-04-19] MEDS: TAMSULOSIN 0.4 MG CAPSULE PO SCH ×2 (09:03→21:33)
[2016-04-19] MEDS: ATORVASTATIN 20 MG TABLET PO SCH (09:03)
[2016-04-19] MEDS: ISOSORBIDE MONONITRATE 60 MG TABLET PO SCH (09:03)
--- NOTE | 2016-04-19 09:26 | Physician Query Form ---
CLICK EDIT DOCUMENT TO SELECT QUERY ANSWER --> OK --> SIGN Megha Willis RN Clinical Industrial Photographer W) [phone] (f) [phone] [email or web address] PROVIDERS: Make your selection(s) from the choices in EACH section by typing an "x" and enter comments in the comment section. Please use your independent medical judgment in providing your response. This request does not imply that any particular answer is desired or expected. CLINICAL INDICATORS: (Providers should not edit this section) "He has EColi in his urine" Urine culture grew out E coli. Treated with IV Rocephin, IV Zithromax, and IV Vancomycin. Based on the above, could you clarify the appropriate diagnosis, if significant , that supports the above abnormalities and additional evaluation, monitoring, and/or treatment rendered: (x ) Treated for UTI ( ) Was NOT Treated for UTI ( ) Other, please specify: ( ) Clinically unable to determine COMMENTS: Use of terms such as suspected, likely, or probable (associated with a specific diagnosis that is being evaluated, monitored, or treated as if it exists) are acceptable and can be restated in the discharge summary if not ruled out. [facility]
--- NOTE | 2016-04-19 09:31 | Physician Query Form ---
CLICK EDIT DOCUMENT TO SELECT QUERY ANSWER --> OK --> SIGN Megha Willis RN Clinical Project Surveyor W) [phone] (f) [phone] [email or web address] PROVIDERS: Make your selection(s) from the choices in EACH section by typing an "x" and enter comments in the comment section. Please use your independent medical judgment in providing your response. This request does not imply that any particular answer is desired or expected. CLINICAL INDICATORS: (Providers should not edit this section) Based on documentation of "Acute elevated troponin. With ESRD does not appear to have and ACS." "Appears to have evidence of Myocardial Infarction" New onset Atrial Fibrillation. On IV Cardizem. Troponin at highest was 3.10. Serial isoenzymes monitored. Based on the above, could you clarify the appropriate diagnosis, if significant , that supports the above abnormalities and additional evaluation, monitoring, and/or treatment rendered: ( ) Treated for Myocardial Infarction ( ) Was NOT Treated for Myocardial Infarction (X ) Other, please specify: too earlt to definitively diagnose with NSTEMI. If we cath patient, we may further define and this will unviel itself during the hospital stay. He is being treated for NSTEMI but limited treatment due to profound thrombocytopenia and CKD ( ) Clinically unable to determine COMMENTS: Use of terms such as suspected, likely, or probable (associated with a specific diagnosis that is being evaluated, monitored, or treated as if it exists) are acceptable and can be restated in the discharge summary if not ruled out. [facility]
--- NOTE | 2016-04-19 10:22 | Cardiology Progress Note ---
<Opal Mccurdy E - Last Filed: 04/19/16 10:35> Assessment and Plan - Time spent with patient Time spent with patient: Greater than 30 minutes (1) Atrial flutter Status: Chronic Assessment and plan: He was taking Amiodorone prior to admission. This has been held. Rate controlled on CCB. Can not formally anti-coagulate due to risk fo bleeding Current Visit: Yes (2) NSTEMI (non-ST elevated myocardial infarction) Status: Acute Assessment and plan: See plan of care below Current Visit: Yes (3) Elevated troponin Status: Acute Current Visit: Yes (4) Pneumonia Status: Acute Assessment and plan: See plan of care below Current Visit: Yes (5) End stage renal disease Status: Chronic Assessment and plan: See plan of care below Current Visit: Yes (6) Thrombocytopenia Status: Acute Current Visit: Yes (7) Hypertension Status: Chronic Assessment and plan: See plan of care below Current Visit: Yes Qualifiers: Hypertension type: unspecified secondary hypertension Qualified Code(s): I15.9 - Secondary hypertension, unspecified; I15 - Secondary hypertension (8) Diabetes mellitus Status: Chronic Assessment and plan: See plan of care below Current Visit: Yes Cardiology - PN: Subj 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 Cardenas initially accepted consultation. The patient was admitted from dialysis April 16, 2016 with projectile vomiting , nausea, fevers, cough and generalized illness. He was found to be also in atrial fibrillation with rapid ventricular response which is now controlled. He has been discovered to have a thrombocytopenia of unclear etiology. He had a non-ST elevation myocardial infarction that was small at the time of his presentation and likely related to his atrial fib with RVR. Clinically he feels much better. He continues to cough, but this is improving. He is being treated for Escherichia coli in his urine. He denies any chest pain or shortness of breath. He is afebrile over the past 24 hours. His I&O are not calculated and we will ask for STRICT I&O and DAILY WEIGHTS. Patient is having sleep apneic episodes as I walk in to the room and observe patient. He wakes and acknowledges he has been diagnosed many years ago with RA but has no sleep device. I will consult Sleep Medicine. I will stop Atorvastatin and evaluate it's contributions to low platelets. Pravastatin not usually associated with thrombocytopenia. Echo shows EF 60% with LVH, mildly dilated LA, mild TRP Yesterday, oral CCB was increased and he is tolerating well. He remains in atrial flutter, rate controlled. ASSESSMENT/PLAN: 1. NSTEMI - May be related to atrial fib with RVR, may be CAD. When patient' s overall comorbidities improve/stabilize, patient will need further cardiac work-up 2. ATRIAL FLUTTER - rate controlled. On ASA. Not on anti-coagulatio ndue to low platelets 3 . HYPERTENSION - adequately controlled 4. DYSLIPIDEMIA - stopping Atorvastatin, starting Pravastatin 5. THROMBOCYTOPENIA - defer additional work-up to Attending. 6. PNEUMONIA - continue current treatment plan 7. SLEEP APNEA - constult sleep medicine 8. CKD REQUIRING HD - continue current plan of care. Exam (Progress Note) - Constitutional Vitals: Period Temp Pulse Resp BP Sys/Hernandez Pulse Ox Last 24 Hr 97.3 F-100.5 F 73-98 16-20 108-137/55-63 90-94 General appearance: no acute distress, over weight - Head Head exam: Present: normocephalic. Absent: hematoma - Eye Eye exam: Present: EOMI. Absent: conjunctival injection, nystagmus Pupils: Present: HERMELINDO, normal accommodation - ENT ENT exam: Present: normal external ear exam, normal oropharynx - Neck Neck exam: Absent: lymphadenopathy, tenderness, thyromegaly - Respiratory Respiratory exam: Present: other (Apneic spells when sleeping). Absent: accessory muscle use, chest wall tenderness - Cardiovascular Cardiovascular exam: Present: irregular rhythm, systolic murmur. Absent: carotid bruit - GI/Abdominal GI/Abdominal exam: Present: normal bowel sounds, soft, other (round) - Extremities Exam Extremities exam: Present: normal capillary refill. Absent: full ROM, calf tenderness - Back Exam Back exam: Absent: CVA tenderness (L), CVA tenderness (R), muscle spasm - Neurological Exam Neurological exam: Present: alert, oriented X3 - Psychiatric Psychiatric exam: Present: normal affect, normal mood - Skin Skin exam: Present: warm, dry. Absent: rash Result/EKG - Labs CBC & BMP: 04/19/16 05:57 04/19/16 05:57 Labs: Laboratory Results - last 24 hr 04/18/16 04/18/16 04/19/16 11:51 11:51 05:57 WBC 3.8 L 4.0 L RBC 3.09 L 3.06 L Hgb 8.8 L 8.7 L Hct 27.3 L 26.4 L MCV 88.3 86.3 L MCH 29 28 MCHC 32.2 33.0 RDW 14.2 13.8 Plt Count 64 L 65 L MPV 12.0 12.1 H Neut % (Auto) 59.4 60.8 Lymph % (Auto) 25.2 26.0 Ponce % (Auto) 12.7 11.6 Eos % (Auto) 1.9 1.3 Baso % (Auto) 0.3 0.0 Neut # (Auto) 2.2 2.4 Lymph # (Auto) 1.0 L 1.0 L Ponce # (Auto) 0.5 0.5 Eos # (Auto) 0.1 0.1 Baso # (Auto) 0.0 0.0 Immature Gran % 0.5 0.3 Nucleated RBC % 0.0 0.0 Immature Gran # 0.02 0.01 Nucleated RBCs # 0.00 0.00 Platelet Estimate Decreased Hypochromasia 2+ Microcytosis 1+ Target Cells Slight [place] Cells 1+ Sodium 136 Potassium 3.6 Chloride 96 L Carbon Dioxide 28 Anion Gap 15.6 H BUN 49 H Creatinine 10.70 H GFR Calculation 6 BUN/Creatinine Ratio 4.00 L Glucose 214 H POC Glucose Calculated Osmolality 290.0 Calcium 7.0 L Magnesium 1.7 L Random Vancomycin 04/19/16 04/19/16 04/19/16 05:57 05:57 07:50 WBC RBC Hgb Hct MCV MCH MCHC RDW Plt Count MPV Neut % (Auto) Lymph % (Auto) [place] % (Auto) Eos % (Auto) Baso % (Auto) Neut # (Auto) Lymph # (Auto) Ponce # (Auto) Eos # (Auto) Baso # (Auto) Immature Gran % Nucleated RBC % Immature Gran # Nucleated RBCs # Platelet Estimate Hypochromasia Microcytosis Target Cells [place] Cells Sodium 135 L Potassium 3.5 Chloride 95 L Carbon Dioxide 26 Anion Gap 17.5 H BUN 54 H Creatinine 12.10 H GFR Calculation 5 BUN/Creatinine Ratio 4.00 L Glucose 181 H POC Glucose 160 H Calculated Osmolality 289.1 Calcium 7.2 L Magnesium 1.7 L Random Vancomycin 8.5 - Diagnostic Findings Procedure: Chest x-ray: report reviewed by me - EKG EKG results: interpreted by id EKG shows: atrial fibrillation <Hiram Melo - Last Filed: 04/19/16 11:23> Cardiology - PN: Subj Interval history: Chart reviewed lab data reviewed patient examined. Peak CPK 876 troponin level 3.6 consistent with non-Q-wave LA. Telemetry shows chronic atrial flutter Microcytic anemia and thrombocytopenia, platelet count 65,000 105 kg. Obstructive sleep apnea suspected. Echo shows ejection fraction of 60% with no wall motion abnormality with LVH, mildly dilated atrium, normal RV function, mild TR and no effusion E. coli UTI Chronic renal failure on dialysis Plan Status post non-Q-wave LA with multiple risk factors. Will need cath. I do not want to give any anticoagulation. Exam (Progress Note) - Constitutional Vitals: Period Temp Pulse Resp BP Sys/Hernandez Pulse Ox Last 24 Hr 97.3 F-100.5 F 73-98 16-20 108-137/55-63 90-94 Result/EKG - Labs CBC & BMP: 04/19/16 05:57 04/19/16 05:57 Labs: Laboratory Results - last 24 hr 04/18/16 04/18/16 04/19/16 11:51 11:51 05:57 WBC 3.8 L 4.0 L RBC 3.09 L 3.06 L Hgb 8.8 L 8.7 L Hct 27.3 L 26.4 L MCV 88.3 86.3 L MCH 29 28 MCHC 32.2 33.0 RDW 14.2 13.8 Plt Count 64 L 65 L MPV 12.0 12.1 H Neut % (Auto) 59.4 60.8 Lymph % (Auto) 25.2 26.0 Ponce % (Auto) 12.7 11.6 Eos % (Auto) 1.9 1.3 Baso % (Auto) 0.3 0.0 Neut # (Auto) 2.2 2.4 Lymph # (Auto) 1.0 L 1.0 L Ponce # (Auto) 0.5 0.5 Eos # (Auto) 0.1 0.1 Baso # (Auto) 0.0 0.0 Immature Gran % 0.5 0.3 Nucleated RBC % 0.0 0.0 Immature Gran # 0.02 0.01 Nucleated RBCs # 0.00 0.00 Platelet Estimate Decreased Hypochromasia 2+ Microcytosis 1+ Target Cells Slight [place] Cells 1+ Sodium 136 Potassium 3.6 Chloride 96 L Carbon Dioxide 28 Anion Gap 15.6 H BUN 49 H Creatinine 10.70 H GFR Calculation 6 BUN/Creatinine Ratio 4.00 L Glucose 214 H POC Glucose Calculated Osmolality 290.0 Calcium 7.0 L Magnesium 1.7 L Random Vancomycin 04/19/16 04/19/16 04/19/16 05:57 05:57 07:50 WBC RBC Hgb Hct MCV MCH MCHC RDW Plt Count MPV Neut % (Auto) Lymph % (Auto) [place] % (Auto) Eos % (Auto) Baso % (Auto) Neut # (Auto) Lymph # (Auto) P[place] # (Auto) Eos # (Auto) Baso # (Auto) Immature Gran % Nucleated RBC % Immature Gran # Nucleated RBCs # Platelet Estimate Hypochromasia Microcytosis Target Cells [place] Cells Sodium 135 L Potassium 3.5 Chloride 95 L Carbon Dioxide 26 Anion Gap 17.5 H BUN 54 H Creatinine 12.10 H GFR Calculation 5 BUN/Creatinine Ratio 4.00 L Glucose 181 H POC Glucose 160 H Calculated Osmolality 289.1 Calcium 7.2 L Magnesium 1.7 L Random Vancomycin 8.5
--- NOTE | 2016-04-19 12:46 | Sleep Medicine Consult ---
Assessment and Plan (1) Obstructive sleep apnea Status: Acute Assessment and plan: This patient has a history of obstructive sleep apnea but we have no records to document that. We will proceed with HST evaluation tonight and follow-up results. If unable to get this done while hospitalized, we will set him up for sleep study as an outpatient and follow him in the sleep clinic. I suspect he has severe sleep apnea based on his anatomy and symptoms. Thank you for this consult. Current Visit: Yes (2) Hypertension Status: Chronic Assessment and plan: The prevalence rate for obstructive sleep apnea patients with hypertension is 35 %. That rate can be as high as 80% in patients who require 4 or more medications for blood pressure control. Current Visit: Yes Qualifiers: Hypertension type: unspecified secondary hypertension Qualified Code(s): I15.9 - Secondary hypertension, unspecified; I15 - Secondary hypertension (3) Diabetes mellitus Status: Chronic Assessment and plan: The prevalence rate for obstructive sleep apnea in patients with type 2 diabetes can be as high as 86%. Those patients with moderate to severe obstructive sleep apnea are at a greater risk for diabetic nephropathy and neuropathy. Compliance with CPAP therapy for these patients can lead to improvement in glycemic control and improvement in insulin sensitivity. Current Visit: Yes History of Present Illness Chief complaint: sleep apnea History of present illness: Mr. Ortega is a 71 year old male who reports that he was diagnosed with sleep apnea several years ago. He was provided his CPAP machine but lost it after he moved to [place]. He states that he thought he had a sleep study here. However we reviewed records at [facility] back to 1999 and could find no evidence of prior sleep study. He does have a history of loud snoring and will awaken from sleep short of breath. He has been told that he stops breathing during his sleep. He is bothered by problems with severe sleepiness during the day. He has an [place] sleepiness score of 15. Home Medications Medication Instructions Recorded Confirmed Type Amiodarone Tab [Cordarone Tab] 200 mg PO DAILY 03/27/16 04/16/16 History Aspirin [Ecotrin] 81 mg PO DAILY 03/27/16 04/16/16 History Atorvastatin [Lipitor] 20 mg PO DAILY 03/27/16 04/16/16 History Doxazosin [Cardura] 1 mg PO BID 03/27/16 04/16/16 History Insulin Glargine [Lantus] 30 unit SUBCUT BEDTIME 03/27/16 04/16/16 History Isosorbide Mononitrate [Isosorbide 60 mg PO DAILY 03/27/16 04/16/16 History Mononitrate ER] Montelukast Tab [Singulair Tab] 10 mg PO BEDTIME 03/27/16 04/16/16 History Tamsulosin [Flomax] 0.4 mg PO BID 03/27/16 04/16/16 History hydrALAZINE TAB [Apresoline Tab] 100 mg PO TID 03/27/16 04/16/16 History Calcium Acetate [Calcium Acetate] 667 mg PO TID 04/16/16 04/16/16 History Omeprazole 40 mg PO DAILY 04/16/16 04/16/16 History Allergies Allergy/AdvReac Type Severity Reaction Status Date / Time No Known Drug Allergies Allergy Verified 11/19/15 12:30 Review of systems: Notable for daytime fatigue and sleepiness. He denies restless legs or leg movements is disturbing to his sleep. Exam ([place]) H&P - Constitutional Vitals: Period Temp Pulse Resp BP Sys/Hernandez Pulse Ox Last 24 Hr 97.3 F-100.5 F 82-98 16-20 117-137/55-67 90-96 Exam: He was asleep upon walking in his room. Pupils equal round reactive to light and accommodation. Extraocular movements intact. Oropharynx with a class IV Mallampati exam. He has a large neck with a neck circumference of over 21 inches. No supraclavicular adenopathy is noted. Chest with symmetrical breath sounds without focal wheezes, rhonchi, or rales. Cardiac exam reveals a regular rhythm without murmur or gallop. Abdomen obese nontender without palpable hepatosplenomegaly or mass. Extremities are with trace edema. Neurologically, he is grossly intact. He moves all extremities with good strength. Medical,Surgical,& Family Hx - Medical History Cardio: History of: Hypertension Endocrine: History of: Diabetes Mellitus (IDDM) Renal: History of: Dialysis, Renal Failure (on dialysis on M-W-F right AV fistula) - Surgical History Orthopedic Surgeries: Surgical HX of;: Total Knee Replacement (Left knee x2) - Social History Smoking Status: Never smoker Frequency of Alcohol Use: None Type of Drug Use: None Results - Labs CBC & BMP: 04/19/16 05:57 04/19/16 05:57 Lab Results: I have reviewed the past 24 hour labs Labs: Thyroid function studies not done.
--- NOTE | 2016-04-19 13:26 | Dialysis Note ---
Dialysis Note - Dialysis Note Patient seen on dialysis. He is tolerating the procedure. Blood pressure 130/ 80.
--- NOTE | 2016-04-19 13:26 | Nephrology Consult Note ---
History of Present Illness Chief complaint: end-stage renal disease History of present illness: Mr. Ortega is a 71 year old male this patient with a history of end-stage renal disease due to hypertension and diabetes dialyzes at the [facility] dialysis unit on a Tuesday schedule. The patient presented over the weekend with shortness of breath found to be in a new onset atrial fibrillation. Moreover patient's serum creatinine troponin was noted to be elevated and is found to have evidence of a myocardial infarction. Surgical Dental Assistant been consult for renal issues. We'll continue with scheduled hemodialysis. Home Medications Medication Instructions Recorded Confirmed Type Amiodarone Tab [Cordarone Tab] 200 mg PO DAILY 03/27/16 04/16/16 History Aspirin [Ecotrin] 81 mg PO DAILY 03/27/16 04/16/16 History Atorvastatin [Lipitor] 20 mg PO DAILY 03/27/16 04/16/16 History Doxazosin [Cardura] 1 mg PO BID 03/27/16 04/16/16 History Insulin Glargine [Lantus] 30 unit SUBCUT BEDTIME 03/27/16 04/16/16 History Isosorbide Mononitrate [Isosorbide 60 mg PO DAILY 03/27/16 04/16/16 History Mononitrate ER] Montelukast Tab [Singulair Tab] 10 mg PO BEDTIME 03/27/16 04/16/16 History Tamsulosin [Flomax] 0.4 mg PO BID 03/27/16 04/16/16 History hydrALAZINE TAB [Apresoline Tab] 100 mg PO TID 03/27/16 04/16/16 History Calcium Acetate [Calcium Acetate] 667 mg PO TID 04/16/16 04/16/16 History Omeprazole 40 mg PO DAILY 04/16/16 04/16/16 History Allergies Allergy/AdvReac Type Severity Reaction Status Date / Time No Known Drug Allergies Allergy Verified 11/19/15 12:30 Medical,Surgical,& Family Hx - Medical History Cardio: History of: Hypertension Endocrine: History of: Diabetes Mellitus (IDDM) Renal: History of: Dialysis, Renal Failure (on dialysis on M-W-F right AV fistula) - Surgical History Orthopedic Surgeries: Surgical HX of;: Total Knee Replacement (Left knee x2) - Social History Smoking Status: Never smoker Frequency of Alcohol Use: None Type of Drug Use: None Review of Systems Cardiovascular: dyspnea Respiratory: dyspnea Exam - Vital Signs Vital signs: Period Temp Pulse Resp BP Sys/Hernandez Pulse Ox Last 24 Hr 97.3 F-100.5 F 82-98 16-20 117-137/55-67 90-96 - General Appearance General appearance: well-developed, well-nourished EENT: ATNC Neck: supple Respiratory: clear Cardiology: regular rate, irregular rhythm Gastrointestinal: normoactive bowel sounds, no tenderness Results - Labs CBC & BMP: 04/19/16 05:57 04/19/16 05:57 Assessment and Plan (1) End stage renal disease Status: Chronic Assessment and plan: Currently dialyzes at the [facility] dialysis unit on a Tuesday schedule. Volume status is acceptable. Metabolic panel is stable. Current Visit: Yes (2) Vomiting Status: Resolved Current Visit: Yes (3) Elevated troponin Status: Acute Assessment and plan: Serial cardiac enzymes. Patient with evidence of atrial fibrillation. Current Visit: Yes (4) New onset atrial fibrillation Status: Acute Assessment and plan: He is now off the cardene infusion. Current Visit: Yes (5) Febrile illness Status: Acute Current Visit: Yes
--- NOTE | 2016-04-19 14:47 | Hospitalist Progress Note ---
Assessment and Plan (1) Chronic kidney disease with end stage renal failure on dialysis Status: Chronic Current Visit: Yes (2) Elevated troponin Status: Acute Current Visit: Yes (3) New onset atrial fibrillation Status: Acute Current Visit: Yes (4) End stage renal disease Status: Chronic Current Visit: Yes (5) Thrombocytopenia Status: Acute Current Visit: Yes (6) Atrial flutter Status: Chronic Current Visit: Yes (7) NSTEMI (non-ST elevated myocardial infarction) Status: Acute Current Visit: Yes (8) Obstructive sleep apnea Status: Acute Assessment and plan: Patient remains in atrial flutter is rate controlled. Cardiology has been adjusting medications. Patient is thrombocytopenic.. It's increasing very slowly. I defer to hematology if it doesn't progress. Chemistry looks okay for dialysis patients patient did have an bump in troponin with a 3.61. He did have an STEMI. Patient was on amiodarone prior to admission. Is currently on a calcium channel christina. Sleep medicine has been consulted and patient is being treated for pneumonia. Current Visit: Yes Hospitalist: Subjective Interval history: Patient seen in dialysis he really has no complaints says he feels better than when he got here Exam - Constitutional Vitals: Period Temp Pulse Resp BP Sys/Hernandez Pulse Ox Last 24 Hr 97.3 F-100.5 F 82-98 16-20 117-137/55-67 90-96 General appearance: over weight - Head Head exam: Present: normal inspection - Eye Eye exam: Present: other (muddy sclera) - ENT ENT exam: Present: normal exam - Neck Neck exam: Present: normal inspection - Respiratory Respiratory exam: Present: clear to auscultation bilaterally - Cardiovascular Cardiovascular exam: Present: regular rate and rhythm - GI/Abdominal GI/Abdominal exam: Present: normal bowel sounds - Extremities Exam Extremities exam: Present: edema Results - Labs CBC & BMP: 04/19/16 05:57 04/19/16 05:57
[2016-04-19 15:39] LABS: Free T4 (Free Thyroxine) 1.83 NG/DL (0.76-1.46); Thyroid Stimulating Hormone 0.296 uIU/ml (0.358-3.74)
[2016-04-19] MEDS: VANCOMYCIN INJ 1,000 MG in SODIUM CHLORIDE 0.9% 250 ML IV SCH (17:04)
[2016-04-19] MEDS: MONTELUKAST 10 MG TABLET PO SCH (21:33)
[2016-04-19] MEDS: PRAVASTATIN 20 MG TABLET PO SCH (21:33)
[2016-04-20 03:15] LABS: Eosinophils # 0.1 10*3/uL (0.0-0.87); Eosinophils % 2.4 % (0.00-10.9); Hematocrit 26.3 VOL% (42.0-52.0); Hemoglobin 8.5 GM/DL (14.0-18.0); Immature Granulocytes % 0.6 %; Immature Granulocytes Absolute 0.02 #; Lymphocytes # 0.9 10*3/uL (1.4-4.0); Lymphocytes % 28.4 % (21.2-54.2); Mean Corpuscular HGB Conc 32.3 GM/DL (32-36); Mean Corpuscular Hemoglobin 28 PG (27-34); Mean Corpuscular Volume 86.8 FL (87-102); Mean Platelet Volume 12.5 FL (9.6-12.0); Monocytes # 0.4 10*3/uL (0.11-0.8); Monocytes % 11.3 % (1.7-12.7); Neutrophils # 1.9 10*3/uL (1.4-7.4); Neutrophils % 57.3 % (38.7-73.9); Platelet Count 79 T/CUMM (130-400); Red Blood Count 3.03 MC/CUMM (3.8-5.5); Red Cell Distribution Width 14.2 % (9.3-17.3); White Blood Count 3.3 T/CUMM (4-12)
[2016-04-20 03:39] LABS: Calcium 7.3 MG/DL (8.5-10.1); Magnesium 1.9 MG/DL (1.8-2.4); Osmolality,Calculated 291.7 MOS/KG (273-304); Potassium 3.8 MMOL/L (3.5-5.1)
[2016-04-20 05:19] LABS: Anisocytosis 1+; Eosinophils 2 % (0-10); Lymphocytes 30 % (20-55); Macrocytosis 1+; Platelet Estimate Decreased; Segmented Neutrophils 57 % (50-85); Total Cells Counted 100
--- NOTE | 2016-04-20 07:06 | Sleep Medicine Progress Note ---
Assessment and Plan (1) Obstructive sleep apnea Status: Acute Assessment and plan: Follow-up prior sleep study results. We may just have to do an titration polysomnography to ascertain best pressure with CPAP. Current Visit: Yes (2) Hypertension Status: Chronic Current Visit: Yes Qualifiers: Hypertension type: unspecified secondary hypertension Qualified Code(s): I15.9 - Secondary hypertension, unspecified; I15 - Secondary hypertension (3) Diabetes mellitus Status: Chronic Current Visit: Yes Sleep Medicine Subjective Interval history: Patient did well overnight. We will try to track down prior sleep study results. Once we have those results will be Renetta determine course of evaluation and action. Exam (Progress Note) - Constitutional Vitals: Period Temp Pulse Resp BP Sys/Hernandez Pulse Ox Last 24 Hr 97.9 F-100.6 F 67-98 18-22 107-138/56-67 94-97 Results - Labs CBC & BMP: 04/20/16 02:29 04/20/16 02:29 Lab Results: I have reviewed the past 24 hour labs
--- NOTE | 2016-04-20 07:08 | Sleep Medicine Progress Note ---
Assessment and Plan (1) Obstructive sleep apnea Status: Acute Assessment and plan: Patient will be set up for sleep evaluation to exclude obstructive sleep apnea and initiate treatment. Current Visit: Yes (2) Hypertension Status: Chronic Current Visit: Yes Qualifiers: Hypertension type: unspecified secondary hypertension Qualified Code(s): I15.9 - Secondary hypertension, unspecified; I15 - Secondary hypertension (3) Diabetes mellitus Status: Chronic Current Visit: Yes Sleep Medicine Subjective Interval history: Patient did not have HST done last night. We'll check with sleep lab and see of device available tonight. If patient discharged, he will be set up for outpatient sleep study. Exam (Progress Note) - Constitutional Vitals: Period Temp Pulse Resp BP Sys/Hernandez Pulse Ox Last 24 Hr 97.9 F-100.6 F 67-98 18-22 107-138/56-67 94-97 Results - Labs CBC & BMP: 04/20/16 02:29 04/20/16 02:29 Lab Results: I have reviewed the past 24 hour labs
[2016-04-20] MEDS: DOXAZOSIN 1 MG TABLET PO SCH ×2 (09:26→21:18)
[2016-04-20] MEDS: ASPIRIN EC 81 MG TABLET PO SCH (09:26)
[2016-04-20] MEDS: TAMSULOSIN 0.4 MG CAPSULE PO SCH ×2 (09:26→21:18)
[2016-04-20] MEDS: DILTIAZEM CD 180 MG CAPSULE PO SCH (09:26)
[2016-04-20] MEDS: cefTRIAXone 1,000 MG in SODIUM CHLORIDE 0.9% 100 ML IV SCH (09:27)
[2016-04-20] MEDS: CALCIUM ACETATE 667 MG CAPSULE PO SCH ×3 (09:27→21:18)
[2016-04-20] MEDS: ISOSORBIDE MONONITRATE 60 MG TABLET PO SCH (09:27)
--- NOTE | 2016-04-20 09:57 | Cardiology Progress Note ---
<Opal Mccurdy E - Last Filed: 04/20/16 09:57> Assessment and Plan - Time spent with patient Time spent with patient: Greater than 30 minutes (1) Atrial flutter Status: Chronic Assessment and plan: He was taking Amiodorone prior to admission. This has been held. Rate controlled on CCB. Can not formally anti-coagulate due to risk of bleeding Current Visit: Yes (2) NSTEMI (non-ST elevated myocardial infarction) Status: Acute Assessment and plan: See plan of care below Current Visit: Yes (3) Elevated troponin Status: Acute Current Visit: Yes (4) Pneumonia Status: Acute Assessment and plan: See plan of care below Current Visit: Yes (5) End stage renal disease Status: Chronic Assessment and plan: See plan of care below Current Visit: Yes (6) Thrombocytopenia Status: Acute Assessment and plan: See plan as described below Current Visit: Yes (7) Hypertension Status: Chronic Assessment and plan: See plan of care below Current Visit: Yes Qualifiers: Hypertension type: unspecified secondary hypertension Qualified Code(s): I15.9 - Secondary hypertension, unspecified; I15 - Secondary hypertension (8) Diabetes mellitus Status: Chronic Assessment and plan: See plan of care below Current Visit: Yes Cardiology - PN: Subj Interval history: Interval history: Supervisor Unloading: not previously followed by cardiology, Dr. Cardenas initially accepted consultation. The patient was admitted from dialysis April 16, 2016 with projectile vomiting , nausea, fevers, cough and generalized illness. He was found to be also in atrial fibrillation with rapid ventricular response which is now controlled. He has been discovered to have a thrombocytopenia of unclear etiology. He had a non-ST elevation myocardial infarction that was small at the time of his presentation and likely related to his atrial fib with RVR. Clinically he feels much better. He continues to cough, but this is improving. He is being treated for Escherichia coli in his urine. He denies any chest pain or shortness of breath. He continues to have low grade fever overnight. No weight loss per daily weights. Breathing better, however. Patient does have sleep apnea. Sleep Medicine was consulted. HST may be ordered tonight if device available. Echo shows EF 60% with LVH, mildly dilated LA, mild TRP Tuesday, oral CCB was increased and he is tolerating well. He remains in atrial flutter, rate controlled. ASSESSMENT/PLAN: 1. NSTEMI - May be related to atrial fib with RVR, may be CAD. When patient' s overall comorbidities improve/stabilize, patient will need further cardiac work-up 2. ATRIAL FLUTTER - rate controlled. On ASA. Not on anti-coagulation due to thrombocytopenia 3 . HYPERTENSION - adequately controlled on Diltiazem 4. DYSLIPIDEMIA - stopping Atorvastatin, starting Pravastatin (assessing affects on platelets) 5. THROMBOCYTOPENIA - defer additional work-up to attending. Platelets slightly increased (79) overnight. 6. PNEUMONIA - continue current treatment plan 7. SLEEP APNEA - sleep medicine has seen patient in consultation. Possible HST tonight. 8. CKD REQUIRING HD - continue current plan of care. Exam (Progress Note) - Constitutional Vitals: Period Temp Pulse Resp BP Sys/Hernandez Pulse Ox Last 24 Hr 97.9 F-100.6 F 67-80 18-22 107-145/56-65 94-97 General appearance: no acute distress, no mild distress - Head Head exam: Present: normocephalic, atraumatic - Eye Eye exam: Absent: conjunctival injection, nystagmus Pupils: Present: HERMELINDO, normal accommodation - ENT ENT exam: Present: normal external ear exam. Absent: normal oropharynx - Neck Neck exam: Absent: lymphadenopathy, tenderness - Respiratory Respiratory exam: Present: rhonchi. Absent: accessory muscle use - Cardiovascular Cardiovascular exam: Present: irregular rhythm. Absent: carotid bruit, diastolic murmur - GI/Abdominal GI/Abdominal exam: Present: normal bowel sounds. Absent: mass, tenderness - Extremities Exam Extremities exam: Present: normal capillary refill. Absent: full ROM, calf tenderness - Back Exam Back exam: Present: muscle spasm. Absent: CVA tenderness (L), CVA tenderness (R ) - Neurological Exam Neurological exam: Present: alert, oriented X3. Absent: normal gait - Psychiatric Psychiatric exam: Present: flat affect. Absent: agitated - Skin Skin exam: Present: warm, dry. Absent: rash Result/EKG - Labs CBC & BMP: 04/20/16 02:29 04/20/16 02:29 Lab Results: I have reviewed the past 24 hour labs Labs: Laboratory Results - last 24 hr 04/19/16 04/20/16 04/20/16 05:57 02:29 02:29 WBC 3.3 L RBC 3.03 L Hgb 8.5 L Hct 26.3 L MCV 86.8 L MCH 28 MCHC 32.3 RDW 14.2 Plt Count 79 L D MPV 12.5 H Neut % (Auto) 57.3 Lymph % (Auto) 28.4 [place] % (Auto) 11.3 Eos % (Auto) 2.4 Baso % (Auto) 0.0 Neut # (Auto) 1.9 Lymph # (Auto) 0.9 L [place] # (Auto) 0.4 Eos # (Auto) 0.1 Baso # (Auto) 0.0 Total Counted 100 Immature Gran % 0.6 Nucleated RBC % 0.0 Immature Gran # 0.02 Segmented Neutrophils 57 Lymphocytes 30 Monocytes 11 Eosinophils 2 Nucleated RBCs # 0.00 Platelet Estimate Decreased Anisocytosis 1+ Macrocytosis 1+ Sodium 138 Potassium 3.8 Chloride 98 Carbon Dioxide 27 Anion Gap 16.8 H BUN 35 H D Creatinine 9.00 H GFR Calculation 8 BUN/Creatinine Ratio 3.00 L Glucose 256 H Calculated Osmolality 291.7 Calcium 7.3 L Magnesium 1.9 Free T4 1.83 H TSH 3rd Generation 0.296 L - EKG EKG results: interpreted by me EKG shows: atrial fibrillation <Hiram Melo - Last Filed: 04/20/16 11:01> Cardiology - PN: Subj Interval history: No pain. Telemetry shows controlled atrial flutter. Patient Dr. Crowder's help. Hemoglobin 8.5 and platelet count 79,000. Peak CPK 876 and peak troponin 3.6 Plan Continue antibiotics for pneumonia and E. coli UTI Dialysis Heart cath when able Exam (Progress Note) - Constitutional Vitals: Period Temp Pulse Resp BP Sys/Hernandez Pulse Ox Last 24 Hr 97.9 F-100.6 F 67-80 18-22 107-145/56-65 94-97 Result/EKG - Labs CBC & BMP: 04/20/16 02:29 04/20/16 02:29 Labs: Laboratory Results - last 24 hr 04/19/16 04/20/16 04/20/16 05:57 02:29 02:29 WBC 3.3 L RBC 3.03 L Hgb 8.5 L Hct 26.3 L MCV 86.8 L MCH 28 MCHC 32.3 RDW 14.2 Plt Count 79 L D MPV 12.5 H Neut % (Auto) 57.3 Lymph % (Auto) 28.4 [place] % (Auto) 11.3 Eos % (Auto) 2.4 Baso % (Auto) 0.0 Neut # (Auto) 1.9 Lymph # (Auto) 0.9 L [place] # (Auto) 0.4 Eos # (Auto) 0.1 Baso # (Auto) 0.0 Total Counted 100 Immature Gran % 0.6 Nucleated RBC % 0.0 Immature Gran # 0.02 Segmented Neutrophils 57 Lymphocytes 30 Monocytes 11 Eosinophils 2 Nucleated RBCs # 0.00 Platelet Estimate Decreased Anisocytosis 1+ Macrocytosis 1+ Sodium 138 Potassium 3.8 Chloride 98 Carbon Dioxide 27 Anion Gap 16.8 H BUN 35 H D Creatinine 9.00 H GFR Calculation 8 BUN/Creatinine Ratio 3.00 L Glucose 256 H Calculated Osmolality 291.7 Calcium 7.3 L Magnesium 1.9 Free T4 1.83 H TSH 3rd Generation 0.296 L
--- NOTE | 2016-04-20 11:28 | Hospitalist Progress Note ---
Assessment and Plan (1) Chronic kidney disease with end stage renal failure on dialysis Status: Chronic Current Visit: Yes (2) Elevated troponin Status: Acute Current Visit: Yes (3) New onset atrial fibrillation Status: Acute Current Visit: Yes (4) End stage renal disease Status: Chronic Current Visit: Yes (5) Thrombocytopenia Status: Acute Current Visit: Yes (6) Atrial flutter Status: Chronic Current Visit: Yes (7) NSTEMI (non-ST elevated myocardial infarction) Status: Acute Current Visit: Yes (8) Obstructive sleep apnea Status: Acute Assessment and plan: Patient remains in atrial flutter is rate controlled. Cardiology has been adjusting medications. Patient is thrombocytopenic.. It's increasing very slowly. I defer to hematology if it doesn't progress. Chemistry looks okay for dialysis patients patient did have an bump in troponin with a 3.61. He did have an STEMI. Patient was on amiodarone prior to admission. Is currently on a calcium channel christina. Sleep medicine has been consulted and patient is being treated for pneumonia. 04/20/16 patient seems to be doing well. He is getting around fairly well with physical therapy. I'm going to repeat it chest x-ray in the morning and check his platelets tomorrow. It does appear that his platelets are going back up on the on. It could be secondary to an acute illness. Current Visit: Yes Hospitalist: Subjective Interval history: Patient has no complaints today. Reports feeling well. Exam - Constitutional Vitals: Period Temp Pulse Resp BP Sys/Hernandez Pulse Ox Last 24 Hr 97.9 F-100.6 F 67-80 18-22 107-145/56-65 94-97 General appearance: over weight - Head Head exam: Present: normal inspection - Eye Eye exam: Present: other (muddy sclera) - ENT ENT exam: Present: normal exam - Neck Neck exam: Present: normal inspection - Respiratory Respiratory exam: Present: clear to auscultation bilaterally - Cardiovascular Cardiovascular exam: Present: regular rate and rhythm - GI/Abdominal GI/Abdominal exam: Present: normal bowel sounds - Extremities Exam Extremities exam: Present: edema Results - Labs CBC & BMP: 04/20/16 02:29 04/20/16 02:29
[2016-04-20] MEDS: ALBUTEROL 1.25 MG/3 ML NEB RESP TX SCH ×2 (14:11→21:21)
--- NOTE | 2016-04-20 17:33 | Nephrology Progress Note ---
Nephrology - PN: Subj Interval history: The patient is resting. No acute changes. No chest pain or shortness of breath. Plan for dialysis tomorrow. Exam (PN)-Nephrology - Vital Signs Vital signs: Period Temp Pulse Resp BP Sys/Hernandez Pulse Ox Last 24 Hr 97.9 F-100.6 F 67-118 18-22 116-145/56-65 93-97 - General Appearance General appearance: well-developed, well-nourished EENT: ATNC Neck: supple Respiratory: clear Cardiology: regular rate, regular rhythm Gastrointestinal: normoactive bowel sounds, no tenderness, no guarding Musculoskeletal: no clubbing Psychiatric: mood/affect appropriate - Lab 04/20/16 02:29 04/20/16 02:29 Most recent lab results Calcium 7.3 MG/DL (8.5-10.1) L 04/20/16 02:29 Magnesium 1.9 MG/DL (1.8-2.4) 04/20/16 02:29 Assessment and Plan (1) End stage renal disease Status: Chronic Assessment and plan: Currently dialyzes at the [facility] dialysis unit on a Tuesday schedule. Volume status is acceptable. Metabolic panel is stable. Current Visit: Yes (2) Vomiting Status: Resolved Current Visit: Yes (3) Elevated troponin Status: Acute Assessment and plan: Serial cardiac enzymes. Patient with evidence of atrial fibrillation. Current Visit: Yes (4) New onset atrial fibrillation Status: Acute Assessment and plan: He is now off the cardene infusion. Current Visit: Yes (5) Febrile illness Status: Acute Current Visit: Yes
[2016-04-20] MEDS: MONTELUKAST 10 MG TABLET PO SCH (21:18)
[2016-04-20] MEDS: PRAVASTATIN 20 MG TABLET PO SCH (21:18)
[2016-04-21] MEDS: ALBUTEROL 1.25 MG/3 ML NEB RESP TX SCH ×4 (00:50→20:14)
[2016-04-21 05:29] LABS: Basophils % 0.3 % (0.0-0.8); Eosinophils # 0.1 10*3/uL (0.0-0.87); Eosinophils % 2.6 % (0.00-10.9); Hematocrit 26.1 VOL% (42.0-52.0); Hemoglobin 8.6 GM/DL (14.0-18.0); Immature Granulocytes % 0.5 %; Immature Granulocytes Absolute 0.02 #; Lymphocytes % 24.8 % (21.2-54.2); Mean Corpuscular Hemoglobin 28 PG (27-34); Mean Corpuscular Volume 83.9 FL (87-102); Mean Platelet Volume 11.6 FL (9.6-12.0); Monocytes # 0.4 10*3/uL (0.11-0.8); Monocytes % 9.2 % (1.7-12.7); Neutrophils # 2.5 10*3/uL (1.4-7.4); Neutrophils % 62.6 % (38.7-73.9); Red Blood Count 3.11 MC/CUMM (3.8-5.5); Red Cell Distribution Width 14.4 % (9.3-17.3); White Blood Count 3.9 T/CUMM (4-12)
[2016-04-21 05:32] LABS: Platelet Count 98 T/CUMM (130-400)
[2016-04-21 05:55] LABS: Calcium 7.2 MG/DL (8.5-10.1); Osmolality,Calculated 297.8 MOS/KG (273-304); Potassium 3.7 MMOL/L (3.5-5.1)
[2016-04-21 05:58] LABS: Band Neutrophils 1 % (0-10); Burr Cells Slight; Elliptocytes Few; Eosinophils 4 % (0-10); Hypochromasia 1+; Lymphocytes 22 % (20-55); Platelet Estimate Decreased; Segmented Neutrophils 63 % (50-85); Total Cells Counted 100
[2016-04-21 05:59] LABS: Macrocytosis Slight
--- NOTE | 2016-04-21 06:38 | XRay Report ---
Referring Physician: Elmer Polo Exam: XR chest 1V portable Date: April 21, 2016 at 5:56 AM Reason: Pneumonia followup Comparison: Chest one view portable April 16, 2016 Findings: The cardiac silhouette is upper normal in size, and there is scattered calcified plaque at the aorta. Heterogeneous opacities are present within both lungs, mainly within the right upper lung zone and in the right perihilar region. This is concerning for pneumonia, but there could also be pulmonary edema. Followup is recommended to confirm and exclude an underlying pulmonary nodule. No pneumothorax or definite pleural fluid is identified. The osseous structures appear stable. Impression: There are heterogeneous opacities within both lungs. They have overall increased, especially within the right upper lung zone. This is concerning for pneumonia, but there could also be pulmonary edema. Followup is recommended to confirm resolution. PROCEDURE INTERPRETED AT [facility] DEPARTMENT OF RADIOLOGY Final Report Signed by: Dr. Berto Dugan
[2016-04-21] MEDS: ASPIRIN EC 81 MG TABLET PO SCH (08:15)
[2016-04-21] MEDS: DOXAZOSIN 1 MG TABLET PO SCH (08:15)
[2016-04-21] MEDS: DILTIAZEM CD 180 MG CAPSULE PO SCH (08:15)
[2016-04-21] MEDS: TAMSULOSIN 0.4 MG CAPSULE PO SCH ×2 (08:16→21:59)
[2016-04-21] MEDS: ISOSORBIDE MONONITRATE 60 MG TABLET PO SCH (08:16)
[2016-04-21] MEDS: CALCIUM ACETATE 667 MG CAPSULE PO SCH ×3 (08:16→21:59)
--- NOTE | 2016-04-21 09:10 | Dialysis Note ---
Dialysis Note - Dialysis Note Patient seen on dialysis. Tolerating the procedure. Blood pressures noted to be 160/80.
[2016-04-21] MEDS ORDERED: AMIODARONE INJ 150 MG in DEXTROSE 5% 100 ML IV ONE (09:49)
--- NOTE | 2016-04-21 09:49 | Cardiology Progress Note ---
Cardiology - PN: Subj Interval history: Cardiology note Less cough. No temperature. Platelet count is rising Telemetry shows controlled atrial flutter Decreased breath sounds basilar rhonchi Irregular rhythm no murmur Abdomen soft benign Lab data today white count 3.9 hemoglobin 8.6 hematocrit 26.1 platelet count up to 98,000 Sodium 137 potassium 3.7 chloride 97 CO2 24 BUN 48 creatinine 11.1 glucose 315 peak CPK 876 troponin II 0.090 Echo Doppler showed ejection fraction of 60% with moderate concentric LVH, mildly dilated left atrium, TR jet was not calculated. Impression Pneumonia Non-Q-wave [place] Atrial flutter Chronic hypertension Chronic renal failure on hemodialysis Chronic anemia Thrombocytopenia which is improving Plan Dialysis today Amiodarone loading Heart cath end of week. Exam (Progress Note) - Constitutional Vitals: Period Temp Pulse Resp BP Sys/Hernandez Pulse Ox Last 24 Hr 98.8 F-100.2 F 68-118 18-22 129-167/59-82 91-97 Result/EKG - Labs CBC & BMP: 04/21/16 04:23 04/21/16 04:23 Labs: Laboratory Results - last 24 hr 04/21/16 04/21/16 04:23 04:23 WBC 3.9 L RBC 3.11 L Hgb 8.6 L Hct 26.1 L MCV 83.9 L MCH 28 MCHC 33.0 RDW 14.4 Plt Count 98 L D MPV 11.6 Neut % (Auto) 62.6 Lymph % (Auto) 24.8 [place] % (Auto) 9.2 Eos % (Auto) 2.6 Baso % (Auto) 0.3 Neut # (Auto) 2.5 Lymph # (Auto) 1.0 L [place] # (Auto) 0.4 Eos # (Auto) 0.1 Baso # (Auto) 0.0 Total Counted 100 Immature Gran % 0.5 Nucleated RBC % 0.0 Immature Gran # 0.02 Segmented Neutrophils 63 Band Neutrophils 1 Lymphocytes 22 Monocytes 9 Eosinophils 4 Basophils 1.0 H Nucleated RBCs # 0.00 Platelet Estimate Decreased Hypochromasia 1+ Macrocytosis Slight Nitza Cells Slight Elliptocytes Few Morphology Comment Sodium 137 Potassium 3.7 Chloride 97 L Carbon Dioxide 24 Anion Gap 19.7 H BUN 48 H Creatinine 11.10 H GFR Calculation 6 BUN/Creatinine Ratio 4.00 L Glucose 315 H Calculated Osmolality 297.8 Calcium 7.2 L Magnesium 2.0
[2016-04-21] MEDS ORDERED: AMIODARONE INJ 450 MG in DEXTROSE 5% 241 ML IV SCH (10:00)
--- NOTE | 2016-04-21 12:40 | Sleep Medicine Progress Note ---
Assessment and Plan (1) Obstructive sleep apnea Status: Acute Current Visit: Yes (2) Hypertension Status: Chronic Assessment and plan: Given technical difficulties with HST, we will proceed with polysomnography as outpatient after discharge. Patient will have follow-up in the sleep clinic. Current Visit: Yes Qualifiers: Hypertension type: unspecified secondary hypertension Qualified Code(s): I15.9 - Secondary hypertension, unspecified; I15 - Secondary hypertension (3) Diabetes mellitus Status: Chronic Current Visit: Yes Sleep Medicine Subjective Interval history: Attempt was made to do HST on patient overnight but it was a technically inadequate study. For some reason the overnight oximetry probe did not work. We will set him up for outpatient polysomnography at discharge. Exam (Progress Note) - Constitutional Vitals: Period Temp Pulse Resp BP Sys/Hernandez Pulse Ox Last 24 Hr 98.4 F-100.0 F 68-118 18-22 130-167/60-82 88-97 Results - Labs CBC & BMP: 04/21/16 04:23 04/21/16 04:23 Lab Results: I have reviewed the past 24 hour labs
--- NOTE | 2016-04-21 14:17 | Hospitalist Progress Note ---
Assessment and Plan (1) Chronic kidney disease with end stage renal failure on dialysis Status: Chronic Current Visit: Yes (2) Elevated troponin Status: Acute Current Visit: Yes (3) New onset atrial fibrillation Status: Acute Current Visit: Yes (4) End stage renal disease Status: Chronic Current Visit: Yes (5) Thrombocytopenia Status: Acute Current Visit: Yes (6) Atrial flutter Status: Chronic Current Visit: Yes (7) NSTEMI (non-ST elevated myocardial infarction) Status: Acute Current Visit: Yes (8) Obstructive sleep apnea Status: Acute Assessment and plan: Patient remains in atrial flutter is rate controlled. Cardiology has been adjusting medications. Patient is thrombocytopenic.. It's increasing very slowly. I defer to hematology if it doesn't progress. Chemistry looks okay for dialysis patients patient did have an bump in troponin with a 3.61. He did have an STEMI. Patient was on amiodarone prior to admission. Is currently on a calcium channel christina. Sleep medicine has been consulted and patient is being treated for pneumonia. 04/20/16 patient seems to be doing well. He is getting around fairly well with physical therapy. I'm going to repeat it chest x-ray in the morning and check his platelets tomorrow. It does appear that his platelets are going back up on the on. It could be secondary to an acute illness. 04/21/16 patient is doing okay. His chest x-ray looked like a pneumonia. He is receiving antibiotics for treatment of pneumonia. 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 He was seen during hemodialysis Exam - Constitutional Vitals: Period Temp Pulse Resp BP Sys/Hernandez Pulse Ox Last 24 Hr 98.4 F-100.0 F 68-118 18-22 130-167/60-82 88-97 General appearance: over weight - Head Head exam: Present: normal inspection - Eye Eye exam: Present: other (muddy sclera) - ENT ENT exam: Present: normal exam - Neck Neck exam: Present: normal inspection - Respiratory Respiratory exam: Present: clear to auscultation bilaterally - Cardiovascular Cardiovascular exam: Present: regular rate and rhythm - GI/Abdominal GI/Abdominal exam: Present: normal bowel sounds - Extremities Exam Extremities exam: Present: edema Results - Labs CBC & BMP: 04/21/16 04:23 04/21/16 04:23
[2016-04-21] MEDS: cefTRIAXone 1,000 MG in SODIUM CHLORIDE 0.9% 100 ML IV SCH (16:56)
[2016-04-21] MEDS: VANCOMYCIN INJ 1,000 MG in SODIUM CHLORIDE 0.9% 250 ML IV SCH (17:28)
[2016-04-21] MEDS: AMIODARONE INJ 450 MG in DEXTROSE 5% 241 ML IV SCH (21:59)
[2016-04-21] MEDS: MONTELUKAST 10 MG TABLET PO SCH (21:59)
[2016-04-21] MEDS: PRAVASTATIN 20 MG TABLET PO SCH (21:59)
[2016-04-22] MEDS: ALBUTEROL 1.25 MG/3 ML NEB RESP TX SCH ×4 (01:11→20:25)
[2016-04-22 04:09] LABS: Basophils % 0.2 % (0.0-0.8); Eosinophils # 0.1 10*3/uL (0.0-0.87); Eosinophils % 3.4 % (0.00-10.9); Hematocrit 25.1 VOL% (42.0-52.0); Hemoglobin 8.2 GM/DL (14.0-18.0); Immature Granulocytes % 1.2 %; Immature Granulocytes Absolute 0.05 #; Lymphocytes # 0.8 10*3/uL (1.4-4.0); Lymphocytes % 19.9 % (21.2-54.2); Mean Corpuscular HGB Conc 32.7 GM/DL (32-36); Mean Corpuscular Hemoglobin 28 PG (27-34); Mean Corpuscular Volume 85.7 FL (87-102); Monocytes # 0.5 10*3/uL (0.11-0.8); Neutrophils # 2.6 10*3/uL (1.4-7.4); Neutrophils % 63.3 % (38.7-73.9); Platelet Count 119 T/CUMM (130-400); Red Blood Count 2.93 MC/CUMM (3.8-5.5); Red Cell Distribution Width 14.2 % (9.3-17.3); White Blood Count 4.1 T/CUMM (4-12)
[2016-04-22 05:00] LABS: Eosinophils 2 % (0-10); Lymphocytes 18 % (20-55); Segmented Neutrophils 72 % (50-85); Total Cells Counted 100
[2016-04-22 05:01] LABS: Elliptocytes Few; Hypochromasia 1+; Macrocytosis Slight; Platelet Estimate Normal
[2016-04-22] MEDS: ISOSORBIDE MONONITRATE 60 MG TABLET PO SCH (08:40)
[2016-04-22] MEDS: CALCIUM ACETATE 667 MG CAPSULE PO SCH ×3 (08:40→22:04)
[2016-04-22] MEDS: TAMSULOSIN 0.4 MG CAPSULE PO SCH ×2 (08:40→22:04)
[2016-04-22] MEDS: DILTIAZEM CD 180 MG CAPSULE PO SCH (08:40)
[2016-04-22] MEDS: cefTRIAXone 1,000 MG in SODIUM CHLORIDE 0.9% 100 ML IV SCH (08:40)
[2016-04-22] MEDS: AMIODARONE INJ 450 MG in DEXTROSE 5% 241 ML IV SCH ×2 (08:40→22:04)
[2016-04-22] MEDS: ASPIRIN EC 81 MG TABLET PO SCH (08:40)
--- NOTE | 2016-04-22 10:14 | Cardiology Progress Note ---
Assessment and Plan - Time spent with patient Time spent with patient: Less than 30 minutes (1) Atrial flutter Status: Chronic Assessment and plan: He was taking Amiodorone prior to admission. He is being loaded IV at this time. See plan of care listed below. Current Visit: Yes (2) NSTEMI (non-ST elevated myocardial infarction) Status: Acute Assessment and plan: See plan of care below Current Visit: Yes (3) Elevated troponin Status: Acute Assessment and plan: See plan of care listed below. Current Visit: Yes (4) Pneumonia Status: Acute Assessment and plan: See plan of care below Current Visit: Yes (5) End stage renal disease Status: Chronic Assessment and plan: See plan of care below Current Visit: Yes (6) Thrombocytopenia Status: Acute Assessment and plan: See plan as described below Current Visit: Yes (7) Hypertension Status: Chronic Assessment and plan: See plan of care below Current Visit: Yes Qualifiers: Hypertension type: unspecified secondary hypertension Qualified Code(s): I15.9 - Secondary hypertension, unspecified; I15 - Secondary hypertension (8) Diabetes mellitus Status: Chronic Assessment and plan: See plan of care below Current Visit: Yes Cardiology - PN: Subj Interval history: 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 Cardenas initially accepted consultation. The patient was admitted from dialysis April 16, 2016 with projectile vomiting , nausea, fevers, cough and generalized illness. He was found to be also in atrial fibrillation with rapid ventricular response which is now controlled. He has been discovered to have a thrombocytopenia of unclear etiology. He had a non-ST elevation myocardial infarction that was small at the time of his presentation and likely related to his atrial fib with RVR. Needs [facility] prior to discharge. Possibly tomorrow [facility]. He is sleeping well. Wakes and tells me he is feeling well. He is wheezing this morning though he does not recognize. He is being treated for Escherichia coli in his urine. He continues to have low grade fever overnight. No weight loss per daily weights. Patient does have sleep apnea. Sleep Medicine was consulted. Outpatient sleep study has been recommended. Echo shows EF 60% with LVH, mildly dilated LA, mild TRP. Labs pending this morning. Tuesday, oral CCB was increased and he is tolerating well. Yesterday, IV Amiodorone was initiated and he is currently being loaded. Rate controlled. HD M-W-F. Creatinine 11 yesterday. Will give a dose of Lasix but suspect he will not diurese well. ASSESSMENT/PLAN: 1. NSTEMI - May be related to atrial fib with RVR, may be CAD. When patient' s overall comorbidities improve/stabilize, patient will need further cardiac work-up, possibly tomorrow. 2. ATRIAL FLUTTER - rate controlled. On ASA. Not on anti-coagulation due to thrombocytopenia. Being loaded on IV Amiodorone. Will initiate oral amiodorone this afternoon as well. 3 . HYPERTENSION - adequately controlled. 4. DYSLIPIDEMIA - now on Pravastatin rather than Atorvastatin 5. THROMBOCYTOPENIA - defer additional work-up to attending. Platelets improving, now 119. 6. PNEUMONIA - continue current treatment plan 7. SLEEP APNEA - sleep medicine has seen patient in consultation. Outpatient sleep study. 8. CKD REQUIRING HD - continue current plan of care. 9. ANEMIA - continue current plan of care. Avoiding formal anti-coagulation at this point. Exam (Progress Note) - Constitutional Vitals: Period Temp Pulse Resp BP Sys/Hernandez Pulse Ox Last 24 Hr 96.9 F-100.1 F 66-114 16-24 117-156/52-74 88-98 General appearance: no acute distress, over weight - Head Head exam: Present: normal inspection, normocephalic - Eye Eye exam: Present: EOMI. Absent: nystagmus Pupils: Present: HERMELINDO. Absent: constricted - ENT ENT exam: Present: normal external ear exam, normal oropharynx - Neck Neck exam: Absent: lymphadenopathy, tenderness, thyromegaly - Respiratory Respiratory exam: Absent: accessory muscle use, chest wall tenderness - Cardiovascular Cardiovascular exam: Present: irregular rhythm. Absent: carotid bruit, JVD - GI/Abdominal GI/Abdominal exam: Present: soft. Absent: mass, tenderness - Extremities Exam Extremities exam: Present: normal capillary refill, full ROM. Absent: calf tenderness, edema - Back Exam Back exam: Absent: CVA tenderness (L), CVA tenderness (R), muscle spasm - Neurological Exam Neurological exam: Present: alert, oriented X3 - Psychiatric Psychiatric exam: Present: normal affect, normal mood - Skin Skin exam: Present: warm, dry. Absent: rash Result/EKG - Labs CBC & BMP: 04/22/16 03:50 04/21/16 04:23 Lab Results: I have reviewed the past 24 hour labs Labs: Laboratory Results - last 24 hr 04/21/16 04/22/16 12:02 03:50 WBC 4.1 RBC 2.93 L Hgb 8.2 L Hct 25.1 L MCV 85.7 L MCH 28 MCHC 32.7 RDW 14.2 Plt Count 119 L D MPV 11.0 Neut % (Auto) 63.3 Lymph % (Auto) 19.9 L [place] % (Auto) 12.0 Eos % (Auto) 3.4 Baso % (Auto) 0.2 Neut # (Auto) 2.6 Lymph # (Auto) 0.8 L [place] # (Auto) 0.5 Eos # (Auto) 0.1 Baso # (Auto) 0.0 Total Counted 100 Immature Gran % 1.2 Nucleated RBC % 0.0 Immature Gran # 0.05 Segmented Neutrophils 72 Lymphocytes 18 L Monocytes 8 Eosinophils 2 Nucleated RBCs # 0.00 Platelet Estimate Normal Hypochromasia 1+ Macrocytosis Slight Elliptocytes Few POC Glucose 173 H - EKG EKG results: interpreted by me EKG shows: atrial fibrillation (atrial flutter)
[2016-04-22] MEDS ORDERED: FUROSEMIDE 40 MG/4 ML VIAL IV ONE (10:37)
--- NOTE | 2016-04-22 11:15 | Hospitalist Progress Note ---
Assessment and Plan - Time spent with patient Time spent with patient: Less than 30 minutes (due to assessment, plan and documentation.) (1) NSTEMI (non-ST elevated myocardial infarction) Status: Acute Current Visit: Yes (2) New onset atrial fibrillation Status: Acute Current Visit: Yes (3) End stage renal disease Status: Chronic Current Visit: Yes Hospitalist: Subjective Interval history: Mr. Ortega was seen today on rounds lying in bed. He states that he feels well. He denies any further palpitations, or chest pain. HR regular rhythm and rate. Lungs clear. Physical therapy about to work with Mr. Ortega. We will continue to monitor along with Cardiology. Labs in AM. Exam - Constitutional Vitals: Period Temp Pulse Resp BP Sys/Hernandez Pulse Ox Last 24 Hr 96.9 F-100.1 F 66-114 16-24 117-156/52-74 88-98 General appearance: no acute distress, over weight - Head Head exam: Present: normal inspection, normocephalic - Eye Eye exam: Present: EOMI. Absent: scleral icterus Pupils: Present: HERMELINDO, normal accommodation - ENT ENT exam: Present: normal exam, normal oropharynx - Neck Neck exam: Present: normal inspection. Absent: lymphadenopathy - Respiratory Respiratory exam: Present: clear to auscultation bilaterally. Absent: accessory muscle use - Cardiovascular Cardiovascular exam: Present: regular rate and rhythm - GI/Abdominal GI/Abdominal exam: Present: normal bowel sounds, soft. Absent: tenderness - Extremities Exam Extremities exam: Present: normal inspection. Absent: edema - Back Exam Back exam: Present: normal inspection. Absent: muscle spasm - Neurological Exam Neurological exam: Present: alert, oriented X3 - Psychiatric Psychiatric exam: Present: normal affect, normal mood - Skin Skin exam: Present: normal color, warm, dry, intact Results - Labs CBC & BMP: 04/22/16 03:50 04/21/16 04:23 Lab Results: I have reviewed the past 24 hour labs
--- NOTE | 2016-04-22 12:15 | Cardiology Progress Note ---
Cardiology - PN: Subj Interval history: Cardiology note Exam (Progress Note) - Constitutional Vitals: Period Temp Pulse Resp BP Sys/Hernandez Pulse Ox Last 24 Hr 96.9 F-100.1 F 66-114 16-24 117-156/52-74 88-98 Result/EKG - Labs CBC & BMP: 04/22/16 03:50 04/21/16 04:23 Labs: Laboratory Results - last 24 hr 04/21/16 04/22/16 12:02 03:50 WBC 4.1 RBC 2.93 L Hgb 8.2 L Hct 25.1 L MCV 85.7 L MCH 28 MCHC 32.7 RDW 14.2 Plt Count 119 L D MPV 11.0 Neut % (Auto) 63.3 Lymph % (Auto) 19.9 L Stephens % (Auto) 12.0 Eos % (Auto) 3.4 Baso % (Auto) 0.2 Neut # (Auto) 2.6 Lymph # (Auto) 0.8 L Stephens # (Auto) 0.5 Eos # (Auto) 0.1 Baso # (Auto) 0.0 Total Counted 100 Immature Gran % 1.2 Nucleated RBC % 0.0 Immature Gran # 0.05 Segmented Neutrophils 72 Lymphocytes 18 L Monocytes 8 Eosinophils 2 Nucleated RBCs # 0.00 Platelet Estimate Normal Hypochromasia 1+ Macrocytosis Slight Elliptocytes Few POC Glucose 173 H
[2016-04-22] MEDS ORDERED: MAGNESIUM SULF RIDER 2 GM in PREMIX 1 EACH IV PRN (12:19)
[2016-04-22] MEDS ORDERED: POTASSIUM CHLORIDE RIDER 10 MEQ in PREMIX 1 EACH IV PRN (12:19)
--- NOTE | 2016-04-22 12:19 | Cardiology Progress Note ---
Cardiology - PN: Subj Interval history: Cardiology note 71-year-old man admitted with pneumonia and non-Q-wave TX and atrial flutter. Patient had thrombocytopenia on admission which has steadily improved. No temperature. Telemetry shows controlled atrial flutter. Decreased breath sounds with basilar rhonchi Irregular rhythm no murmur Abdomen soft benign Lab data today White count 4.1 hemoglobin 8.2 hematocrit 25.1 Platelet count 119,000 Impression Pneumonia Non-Q-wave TX Paroxysmal atrial flutter Chronic hypertension Chronic renal failure and hemodialysis Chronic anemia Thrombocytopenia improving Recent echo showed ejection fraction of 60% with LVH, mildly dilated left atrium. TR jet could not be calculated. Plan Amiodarone 200 mg twice daily Heart cath tomorrow. Procedure risk-benefit reviewed with patient. Exam (Progress Note) - Constitutional Vitals: Period Temp Pulse Resp BP Sys/Hernandez Pulse Ox Last 24 Hr 96.9 F-100.1 F 66-114 16-24 117-156/52-74 88-98 Result/EKG - Labs CBC & BMP: 04/22/16 03:50 04/21/16 04:23 Labs: Laboratory Results - last 24 hr 04/21/16 04/22/16 12:02 03:50 WBC 4.1 RBC 2.93 L Hgb 8.2 L Hct 25.1 L MCV 85.7 L MCH 28 MCHC 32.7 RDW 14.2 Plt Count 119 L D MPV 11.0 Neut % (Auto) 63.3 Lymph % (Auto) 19.9 L Carroll % (Auto) 12.0 Eos % (Auto) 3.4 Baso % (Auto) 0.2 Neut # (Auto) 2.6 Lymph # (Auto) 0.8 L Carroll # (Auto) 0.5 Eos # (Auto) 0.1 Baso # (Auto) 0.0 Total Counted 100 Immature Gran % 1.2 Nucleated RBC % 0.0 Immature Gran # 0.05 Segmented Neutrophils 72 Lymphocytes 18 L Monocytes 8 Eosinophils 2 Nucleated RBCs # 0.00 Platelet Estimate Normal Hypochromasia 1+ Macrocytosis Slight Elliptocytes Few POC Glucose 173 H
--- NOTE | 2016-04-22 12:19 | History and Physical Update ---
Sedation H&P Update - History and Physical H&P was reviewed, the patient examined and there: are no changes in the patients condition since last H&P was completed. - Dictation Physical: refer to H&P completed by admitting physician - Physical Exam Mental Status: alert and oriented Heart: regular rate and rhythm Lung: clear to auscultation Abdomen: within normal limits Vitals: within normal limits - Sedation Plan for Sedation: moderate Patient Consent: Procedure disscussed with patient and patinet has consented., Risks and benefits were discussed with patient,including infection,, bleeding, injury to surrounding structures, seizure, temporary nerve, Patient understands and accepts potential risks/benefits and agrees to, proceed. ASA Class: II
[2016-04-22 12:29] LABS: Calcium 7.8 MG/DL (8.5-10.1); Magnesium 1.9 MG/DL (1.8-2.4); Osmolality,Calculated 287.7 MOS/KG (273-304); Potassium 3.7 MMOL/L (3.5-5.1)
[2016-04-22] MEDS: AMIODARONE 200 MG TABLET PO SCH ×2 (12:45→22:04)
--- NOTE | 2016-04-22 18:36 | Nephrology Progress Note ---
Nephrology - PN: Subj Interval history: The patient is resting. No chest pain. Cardiac cath to be done. Exam (PN)-Nephrology - Vital Signs Vital signs: Period Temp Pulse Resp BP Sys/Hernandez Pulse Ox Last 24 Hr 96.9 F-100.1 F 62-114 16-20 117-156/52-74 88-98 - General Appearance General appearance: well-developed, well-nourished EENT: ATNC Neck: supple Respiratory: clear Cardiology: regular rate, regular rhythm Gastrointestinal: normoactive bowel sounds, no tenderness Neurologic: alert and oriented x3 Musculoskeletal: no clubbing - Lab 04/22/16 03:50 04/22/16 11:46 Most recent lab results Calcium 7.8 MG/DL (8.5-10.1) L 04/22/16 11:46 Magnesium 1.9 MG/DL (1.8-2.4) 04/22/16 11:46 Assessment and Plan (1) End stage renal disease Status: Chronic Assessment and plan: Currently dialyzes at the [place] dialysis unit on a Tuesday schedule. Volume status is acceptable. Metabolic panel is stable. Current Visit: Yes (2) Vomiting Status: Resolved Current Visit: Yes (3) Elevated troponin Status: Acute Assessment and plan: Serial cardiac enzymes. Patient with evidence of atrial fibrillation. Current Visit: Yes (4) New onset atrial fibrillation Status: Acute Current Visit: Yes (5) Febrile illness Status: Acute Current Visit: Yes
[2016-04-22] MEDS: MONTELUKAST 10 MG TABLET PO SCH (22:04)
[2016-04-22] MEDS: PRAVASTATIN 20 MG TABLET PO SCH (22:04)
[2016-04-23] MEDS: ALBUTEROL 1.25 MG/3 ML NEB RESP TX SCH ×3 (01:32→14:52)
[2016-04-23 05:08] LABS: INR 1.2; PT Patient Result 12.5 SECS
[2016-04-23 05:21] LABS: Calcium 8.3 MG/DL (8.5-10.1); Osmolality,Calculated 286.1 MOS/KG (273-304); Potassium 3.9 MMOL/L (3.5-5.1)
[2016-04-23] MEDS ORDERED: diphenhydrAMINE CAP 25 MG CAPSULE PO ONE (07:31)
[2016-04-23] MEDS ORDERED: DIAZEPAM 5 MG TABLET PO ONE (07:31)
--- NOTE | 2016-04-23 07:35 | Event Note ---
I discussed with Dr. Melo and reviewed the chart and examined the patient. I discussed with him the risks and benefits of the procedure. He is extremely hard of hearing but he seems to understand. It took some time to communicate with him but he is ready to proceed and voices this. I reviewed his chart his platelets continue to increase. His H&H are low this is probably from his chronic renal failure electrolytes are normal. Will proceed with left heart catheterization selective coronary angiography and possible percutaneous coronary mention via the left radial approach. He is dialysis accesses on the right he has a great left radial pulse.
[2016-04-23] MEDS: DILTIAZEM CD 180 MG CAPSULE PO SCH ×2 (07:41→09:59)
[2016-04-23] MEDS: ASPIRIN EC 81 MG TABLET PO SCH ×2 (07:41→09:59)
[2016-04-23] MEDS: ISOSORBIDE MONONITRATE 60 MG TABLET PO SCH ×2 (07:41→10:00)
[2016-04-23] MEDS: AMIODARONE 200 MG TABLET PO SCH ×2 (07:42→09:59)
[2016-04-23] MEDS ORDERED: HEPARIN/NACL 0.9% 2 UNITS/ML 1,000 ML IV ONE (07:54)
[2016-04-23] MEDS ORDERED: LIDOCAINE 1% 20 ML VIAL ONE (07:55)
[2016-04-23] MEDS ORDERED: MIDAZOLAM 2 MG/2 ML VIAL ONE (07:59)
[2016-04-23] MEDS ORDERED: fentaNYL 100 MCG/2 ML VIAL ONE (07:59)
[2016-04-23] MEDS ORDERED: NITROGLYCERIN DRIP 50 MG/250 ML BOTTLE IV ONE (08:13)
[2016-04-23] MEDS ORDERED: VERAPAMIL 5 MG/2 ML VIAL ONE (08:14)
[2016-04-23] MEDS ORDERED: HEPARIN 5,000 UNIT/1 ML VIAL ONE (08:14)
--- NOTE | 2016-04-23 08:39 | Cardiac Catheterization ---
Date of Procedure:: 04/23/16 Pre-op Diagnosis: NSTEMI with new onset atrial fibrillation/flutter Post-op diagnosis: other (Moderate atherosclerosis in the right PDA) Procedure: Procedures: 1. Selective Left and right coronary angiography 2. [facility] with resting hemodynamics After signed an informed consent was obtained, the patient was prepped and draped in standard fashion for right radial access. Time out was recorded. 0.5 mL of 1% lidocaine were infiltrated in the skin and subcutaneous tissue overlying the right radial artery and Seldinger technique was utilized with a Angiocath to obtain access to the left radial artery. A [employer] Shepherd glide wire was then advanced into the midforearm under fluoroscopic guidance. The Angiocath was removed and a 6 [place] Terumo glide sheath was placed over the Glidewire. The sheath was aspirated and flushed and then 5 mg of verapamil and 200 g of nitroglycerin were given through the sheath. At this time an 035 J-wire was used to guide a JL4 diagnostic catheters veins overlying the central aorta the left main coronary site and engaged. Multiple orthogonal views were obtained. This time the catheter was exchanged over the wire the sheath was aspirated and flushed and a JR4 diagnostic cath was used to engage the right coronary artery and multiple orthogonal views were obtained. The JR4 was then exchanged over the wire sheath was aspirated and flushed and angled pigtail catheter was advanced in the ventricle pressure measurements and pullback measurements were performed. The catheter was then exchanged over the wire. The sheath was aspirated and flushed. The knurling machine operator reviewed the films. And a TR band was placed over the glide sheath and used for hemostasis. Total contrast exposure 60 cc of omnipaque Total x-ray exposure: 2.06 min fluoroscopy time and 283 mGy air Kerma Findings: 1. EF was not assessed. The patient had TTE before the procedure 2. Hemodynamics LV: 128/8 EDP:17-30 (atrial fibrillation and respiratory variations) Ao:120/53 3. Left main: Angiographically normal 4: Left anterior descending artery: Mild luminal irregularities 5: Left circumflex artery: The very large codominant type vessel that has mild luminal irregularity 6: Right coronary artery: There are mild luminal irregularities in this codominant RCA. There is a very small posterior lateral branch that has approximately 60% ostial stenosis as it leaves the bifurcation of the PLB and the PDA. Assessment: 1. Single-vessel branch disease as described above 2. Atrial fibrillation 3. Control blood pressure with mildly increased left ventricular end-diastolic pressure presumed diastolic dysfunction in the face of atrial fibrillation Plan: 1. Therapeutic lifestyle changes. 2. Medical management and risk factor reduction. Implants: None Anesthesia: local Surgeon / Physician: Era Szymanski Sofa Cover Inspector: none Estimated blood loss: none Specimens: none sent Condition: stable Disposition: floor - Medications / Follow-up
[2016-04-23] MEDS: CALCIUM ACETATE 667 MG CAPSULE PO SCH ×2 (10:13→17:05)
[2016-04-23] MEDS: TAMSULOSIN 0.4 MG CAPSULE PO SCH (10:13)
--- NOTE | 2016-04-23 10:14 | Nephrology Progress Note ---
Nephrology - PN: Subj Interval history: The patient is no s/p heart cath which did not show any blockage. He is resting comfortably. Dialysis scheduled today. Exam (PN)-Nephrology - Vital Signs Vital signs: Period Temp Pulse Resp BP Sys/Hernandez Pulse Ox Last 24 Hr 97 F-99.9 F 62-87 16-20 128-162/56-72 88-99 - General Appearance General appearance: well-developed, well-nourished Neck: supple Respiratory: clear Cardiology: irregular rhythm Gastrointestinal: normoactive bowel sounds, no tenderness Neurologic: alert and oriented x3 Musculoskeletal: no clubbing Psychiatric: mood/affect appropriate - Lab 04/22/16 03:50 04/23/16 04:19 Most recent lab results Calcium 8.3 MG/DL (8.5-10.1) L 04/23/16 04:19 Magnesium 1.9 MG/DL (1.8-2.4) 04/22/16 11:46 Assessment and Plan (1) End stage renal disease Status: Chronic Assessment and plan: Currently dialyzes at the [place] dialysis unit on a Tuesday schedule. Volume status is acceptable. Metabolic panel is stable. Current Visit: Yes (2) Vomiting Status: Resolved Current Visit: Yes (3) Elevated troponin Status: Acute Assessment and plan: . Atrial fibrillation. Current Visit: Yes (4) New onset atrial fibrillation Status: Acute Current Visit: Yes (5) Febrile illness Status: Acute Current Visit: Yes
[2016-04-23] MEDS: cefTRIAXone 1,000 MG in SODIUM CHLORIDE 0.9% 100 ML IV SCH (10:48)
--- NOTE | 2016-04-23 12:03 | Hospitalist Progress Note ---
Assessment and Plan - Time spent with patient Time spent with patient: Less than 30 minutes (due to assessment, plan and doc) (1) NSTEMI (non-ST elevated myocardial infarction) Status: Acute Current Visit: Yes (2) New onset atrial fibrillation Status: Acute Current Visit: Yes (3) End stage renal disease Status: Chronic Current Visit: Yes Hospitalist: Subjective Interval history: Mr. Ortega is seen today s/p cath. He underwent a Heart catherization with Dr. Szymanski this morning that showed no blockage requiring stent. He is also for dialysis today. His vitals are stable and labs as well. Physical Therapy has just worked with him and Nursing students about to perform AM care. Discussed plan of care with Mr. Ortega and his at bedside. Labs in AM. Exam - Constitutional Vitals: Period Temp Pulse Resp BP Sys/Hernandez Pulse Ox Last 24 Hr 97.7 F-99.9 F 62-87 16-20 128-162/56-72 88-99 General appearance: no acute distress, over weight - Head Head exam: Present: normal inspection, normocephalic - Eye Eye exam: Present: EOMI. Absent: scleral icterus Pupils: Present: HERMELINDO, normal accommodation - ENT ENT exam: Present: normal exam, normal oropharynx - Neck Neck exam: Present: normal inspection. Absent: lymphadenopathy - Respiratory Respiratory exam: Present: clear to auscultation bilaterally. Absent: accessory muscle use - Cardiovascular Cardiovascular exam: Present: regular rate and rhythm. Absent: carotid bruit - GI/Abdominal GI/Abdominal exam: Present: normal bowel sounds, soft. Absent: tenderness - Extremities Exam Extremities exam: Present: normal inspection. Absent: edema - Back Exam Back exam: Present: normal inspection. Absent: muscle spasm - Neurological Exam Neurological exam: Present: other (lethargic s/p cath) - Psychiatric Psychiatric exam: Present: normal affect, normal mood - Skin Skin exam: Present: normal color, warm, dry, intact Results - Labs CBC & BMP: 04/22/16 03:50 04/23/16 04:19 Lab Results: I have reviewed the past 24 hour labs Quality Measures - VTE Contraindication to Pharmacological VTE Prophylaxis: Already on Theraputic Agent , No Prophylaxis Needed
--- NOTE | 2016-04-23 14:01 | Cardiology Progress Note ---
Cardiology - PN: Subj Interval history: Cardiology note 71-year-old man admitted with pneumonia and atrial flutter and non-Q-wave DE. Cardiac cath showed moderate single vessel CAD involving the posterior LV branch. LAD and circumflex had only mild disease. Echo showed ejection fraction of 60% with concentric LVH and aortic sclerosis. Telemetry shows atrial flutter with controlled rate O2 sat 94% on 2 L Impression Pneumonia non-Q-wave DE Paroxysmal atrial flutter Chronic renal failure on dialysis Chronic hypertension Thrombocytopenia Chronic anemia Plan Continue amiodarone 200 mg twice daily Medical therapy for CAD Dialysis tomorrow Exam (Progress Note) - Constitutional Vitals: Period Temp Pulse Resp BP Sys/Hernandez Pulse Ox Last 24 Hr 97.7 F-99.9 F 64-87 16-20 128-162/55-94 90-99 Result/EKG - Labs CBC & BMP: 04/22/16 03:50 04/23/16 04:19 Labs: Laboratory Results - last 24 hr 04/23/16 04/23/16 04:19 04:19 INR 1.2 PT Patient/Control Mix 12.5 Sodium 135 L Potassium 3.9 Chloride 98 Carbon Dioxide 24 Anion Gap 16.9 H BUN 36 H Creatinine 10.30 H GFR Calculation 6 BUN/Creatinine Ratio 3.00 L Glucose 257 H Calculated Osmolality 286.1 Calcium 8.3 L Quality Measures - VTE Contraindication to Pharmacological VTE Prophylaxis: Already on Theraputic Agent , No Prophylaxis Needed
--- NOTE | 2016-04-23 15:11 | Discharge Summary ---
Hospital Course - Hospital Course Hospital Course: This is a 71-year-old -Polish male who presented to the ER on the date of admission from dialysis. He states he's been on dialysis for about 2 hours when it began to vomit. He said he vomited 4 times and has felt fine since. He denies feeling bad nausea prior to the dialysis but feeling well now. He denies any recent illness denies chest pain shortness of breath he was documented having a fever 102 at dialysis but appears stable was 99. He told the admitting physician he was vomiting he had some left-sided sided abdominal pain which is now resolved. Patient was hemodynamically stable and labs revealed a mildly elevated troponin which could be chronic due to his renal disease. Is also noted to have an elevated bili and noted is having atrial fibrillation with a right 120 on arrival to the ER he was started on Cardizem infusion and we admitted the patient to our service. We consulted renal to assist with his dialysis and cardiology. Patient was known to be 9 with atrial flutter dyslipidemia and he was being noted that he had thrombocytopenia. He was being treated for pneumonia while he was in the hospital also. His thrombocytopenia resolved and he was able to be taken for left heart cath. His left heart cath did not reveal any significant lesions that needed stenting. Patient was examined during dialysis and is feeling fine status post look the heart cath. - Time spent with patient Time with patient DS: Greater than 30 minutes Diagnosis - Discharge Diagnosis (1) Chronic kidney disease with end stage renal failure on dialysis Status: Chronic (2) Elevated troponin Status: Acute (3) New onset atrial fibrillation Status: Acute (4) End stage renal disease Status: Chronic (5) Thrombocytopenia Status: Acute (6) Atrial flutter Status: Chronic (7) NSTEMI (non-ST elevated myocardial infarction) Status: Acute (8) Obstructive sleep apnea Status: Acute Discharge Plan - Discharge Data Disposition: Swing Bed, [place] [facility], [facility] Discharge Diet: advance to your usual diet Activity: resume usual activities as tolerated - Discharge Medications New Acetaminophen Tab [Tylenol Tab] 650 mg PO Q4H PRN #0 tablet PRN Reason: Fever, Headache, Mild Pain Amiodarone Tab [Cordarone Tab] 200 mg PO BID #60 tablet Amoxicillin/Clav Tab [Augmentin Tab] 875 mg PO Q12H #14 tablet Diltiazem Cd Cap [Cardizem CD] 360 mg PO DAILY #30 capsule Continue Tamsulosin [Flomax] 0.4 mg PO BID Montelukast Tab [Singulair Tab] 10 mg PO BEDTIME Isosorbide Mononitrate [Isosorbide Mononitrate ER] 60 mg PO DAILY Atorvastatin [Lipitor] 20 mg PO DAILY Aspirin [Ecotrin] 81 mg PO DAILY Omeprazole 40 mg PO DAILY Doxazosin [Cardura] 1 mg PO BID Insulin Glargine [Lantus] 30 unit SUBCUT BEDTIME Calcium Acetate 667 mg PO TID Discontinued hydrALAZINE TAB [Apresoline Tab] 100 mg PO TID Amiodarone Tab [Cordarone Tab] 200 mg PO DAILY - Follow Up or Referral Follow Up: Kelley Cardenas MD [Physician] - 2 Weeks - Forms/Instructions Exam - Constitutional Vitals: Period Temp Pulse Resp BP Sys/Hernandez Pulse Ox Last 24 Hr 97.7 F-99.9 F 64-87 16-20 128-162/55-94 90-99 Unchanged from previous note Discharge Results Procedures and tests throughout hospitalization: Pending Orders 04/23/16 07:06 CL heart Routine 04/24/16 04:00 Basic Metabolic Panel IN AM CMP [Comprehensive Metabolic Panel] IN AM Comp Blood Count Auto Diff IN AM Labs on day of discharge: Labs from last 24 hours 04/23/16 04/23/16 04:19 04:19 INR 1.2 PT Patient/Control Mix 12.5 Sodium 135 L Potassium 3.9 Chloride 98 Carbon Dioxide 24 Anion Gap 16.9 H BUN 36 H Creatinine 10.30 H GFR Calculation 6 BUN/Creatinine Ratio 3.00 L Glucose 257 H Calculated Osmolality 286.1 Calcium 8.3 L DS: Provider Date of admission: 04/16/16 17:54 Primary care physician: Nonstaff Physician Attending physician on admission: Curtis Valladares Jr., MD Consults: 04/16/16 19:05 Consult to Pharmacy [CONS] Routine Reason for Pharmacy Consult: Adjust Meds Renal Funct 04/17/16 12:16 Consult to Physician [CONS] Routine Comment: Consulting Provider: Consult to Specialist Group: Cardiology 04/19/16 11:00 Consult to Sleep Center [CONS] Routine Reason for Sleep Center: Sleep Center Physician Consult Comment: witnessed sleep apnea Discharging clinician: Elmer Polo MD
[2016-04-23] MEDS: AMIODARONE INJ 450 MG in DEXTROSE 5% 241 ML IV SCH (17:05)
[2016-04-23 17:23] VITALS: BP 147/74
[2016-04-23] MEDS: VANCOMYCIN INJ 1,000 MG in SODIUM CHLORIDE 0.9% 250 ML IV SCH (18:01)
== END 2016-04-23 17:35 | disposition swing bed (61) | DRG 280 ==
LOC: EDUNIT# → SUATTDRO → EDBD → N.ED 14:13 → SUATTDRO 17:54 → N.EDINP 17:54 → N.TELES 19:02
PROVIDERS: ADMIT Internal Medicine Nephrology; ATTEND Internal Medicine
PROC: CLCCHCL (ICD-10-PCS; 2016-04-23 08:15)

== ENCOUNTER 2018-06-19 00:04 | Inpatient (IN) ==
[2018-06-19] MEDS ORDERED: ONDANSETRON 4 MG/2 ML VIAL IV STA (01:41)
[2018-06-19 01:47] LABS: Basophils % 0.4 % (0.0-0.8); Eosinophils # 0.5 10*3/uL (0.0-0.87); Eosinophils % 6.1 % (0.00-10.9); Hematocrit 40.5 VOL% (42.0-52.0); Immature Granulocytes % 0.5 %; Immature Granulocytes Absolute 0.04 #; Lymphocytes # 1.2 10*3/uL (1.4-4.0); Lymphocytes % 14.9 % (21.2-54.2); Mean Corpuscular HGB Conc 32.1 GM/DL (32-36); Mean Corpuscular Hemoglobin 29 PG (27-34); Mean Platelet Volume 12.1 FL (9.6-12.0); Monocytes # 0.7 10*3/uL (0.11-0.8); Monocytes % 8.5 % (1.7-12.7); Neutrophils # 5.8 10*3/uL (1.4-7.4); Neutrophils % 69.6 % (38.7-73.9); Platelet Count 128 T/CUMM (130-400); Red Blood Count 4.45 MC/CUMM (3.8-5.5); Red Cell Distribution Width 13.9 % (9.3-17.3); White Blood Count 8.3 T/CUMM (4-12)
[2018-06-19 01:58] LABS: Albumin 3.8 G/DL (3.4-5.0); Bilirubin,Total 0.7 MG/DL (0.2-1.0); Osmolality,Calculated 297.7 MOS/KG (273-304); Potassium 3.9 MMOL/L (3.5-5.1); Total Protein 7.8 G/DL (6.4-8.3)
[2018-06-19] MEDS ORDERED: FUROSEMIDE 40 MG/4 ML VIAL IV STA (02:36)
[2018-06-19] MEDS ORDERED: hydrALAZINE 20 MG/1 ML VIAL IV STA (02:36)
[2018-06-19] MEDS ORDERED: hydrALAZINE 20 MG/1 ML VIAL ONE (02:38)
[2018-06-19 03:47] LABS: ABG HCO3 28.7 MMOL/L (20-26); ABG Oxygen Saturation 88.3 % (95-100); ABG PCO2 44.8 MM HG (35-48); ABG PH 7.434 (7.35-7.45); ABG TCO2 26.2 MMOL/L (23-27); Allen Test Positive
[2018-06-19] MEDS ORDERED: MAGNESIUM SULF RIDER 2 GM in PREMIX 1 EACH IV PRN (04:57)
[2018-06-19] MEDS ORDERED: ACETAMINOPHEN 325 MG TABLET PO PRN (04:57)
[2018-06-19] MEDS ORDERED: ONDANSETRON 4 MG/2 ML VIAL IV PRN (04:57)
[2018-06-19] MEDS ORDERED: MORPHINE 4 MG/1 ML VIAL IV PRN (04:57)
[2018-06-19] MEDS ORDERED: MAGNESIUM SULF RIDER 4 GM in PREMIX 1 EACH IV PRN (04:57)
[2018-06-19] MEDS ORDERED: GLUCAGON 1 MG VIAL IM PRN (04:57)
[2018-06-19] MEDS ORDERED: NICOTINE 21 MG/24 HR PATCH TRANSDERM PRN (04:57)
[2018-06-19] MEDS ORDERED: POTASSIUM CHLORIDE 20 MEQ TABLET PO PRN (04:57)
[2018-06-19] MEDS ORDERED: DEXTROSE 50% 25 GM/50 ML SYRINGE IV PRN (04:57)
[2018-06-19] MEDS ORDERED: BISACODYL 5 MG TABLET PO PRN (04:57)
[2018-06-19] MEDS: INSULIN REGULAR 100 UNIT/ML SUBCUT SCH ×3 (08:01→17:23)
[2018-06-19 08:03] LABS: Troponin I 0.109 NG/ML (0.00-0.045)
[2018-06-19] MEDS ORDERED: FUROSEMIDE 40 MG/4 ML VIAL IV SCH (09:00)
[2018-06-19] MEDS: ISOSORBIDE MONONITRATE 30 MG TABLET PO SCH (10:23)
[2018-06-19] MEDS: CARVEDILOL 6.25 MG TABLET PO SCH ×2 (10:23→21:38)
[2018-06-19] MEDS: PANTOPRAZOLE 40 MG TABLET PO SCH (10:23)
[2018-06-19 16:29] LABS: Troponin I 0.211 NG/ML (0.00-0.045)
[2018-06-19] MEDS: INSULIN NPH 100 UNIT/ML SUBCUT SCH (17:13)
[2018-06-20] MEDS: INSULIN REGULAR 100 UNIT/ML SUBCUT SCH ×5 (01:33→23:57)
[2018-06-20 05:41] LABS: Basophils % 0.5 % (0.0-0.8); Eosinophils # 0.2 10*3/uL (0.0-0.87); Hematocrit 37.5 VOL% (42.0-52.0); Hemoglobin 12.3 GM/DL (14.0-18.0); Immature Granulocytes % 0.4 %; Immature Granulocytes Absolute 0.03 #; Lymphocytes % 24.8 % (21.2-54.2); Mean Corpuscular HGB Conc 32.8 GM/DL (32-36); Mean Corpuscular Hemoglobin 29 PG (27-34); Mean Corpuscular Volume 89.7 FL (87-102); Monocytes # 0.9 10*3/uL (0.11-0.8); Monocytes % 10.7 % (1.7-12.7); Neutrophils % 61.6 % (38.7-73.9); Platelet Count 116 T/CUMM (130-400); Red Blood Count 4.18 MC/CUMM (3.8-5.5); Red Cell Distribution Width 13.9 % (9.3-17.3); White Blood Count 8.1 T/CUMM (4-12)
[2018-06-20 05:55] LABS: Calcium 8.6 MG/DL (8.5-10.1); Potassium 3.9 MMOL/L (3.5-5.1)
[2018-06-20] MEDS: INSULIN NPH 100 UNIT/ML SUBCUT SCH ×2 (09:39→18:13)
[2018-06-20] MEDS: CARVEDILOL 6.25 MG TABLET PO SCH ×2 (09:40→20:46)
[2018-06-20] MEDS: PANTOPRAZOLE 40 MG TABLET PO SCH (09:40)
[2018-06-20] MEDS: ISOSORBIDE MONONITRATE 30 MG TABLET PO SCH (09:40)
[2018-06-20] MEDS: ASPIRIN EC 81 MG TABLET PO SCH (11:58)
[2018-06-20] MEDS: TAMSULOSIN 0.4 MG CAPSULE PO SCH (20:46)
[2018-06-21 04:30] LABS: Basophils # 0.1 10*3/uL (0.0-0.2); Basophils % 0.9 % (0.0-0.8); Eosinophils # 0.3 10*3/uL (0.0-0.87); Eosinophils % 5.1 % (0.00-10.9); Hematocrit 36.3 VOL% (42.0-52.0); Hemoglobin 11.6 GM/DL (14.0-18.0); Immature Granulocytes % 0.4 %; Immature Granulocytes Absolute 0.03 #; Lymphocytes # 1.8 10*3/uL (1.4-4.0); Lymphocytes % 27.4 % (21.2-54.2); Mean Corpuscular Hemoglobin 29 PG (27-34); Mean Corpuscular Volume 90.5 FL (87-102); Mean Platelet Volume 11.5 FL (9.6-12.0); Monocytes # 0.7 10*3/uL (0.11-0.8); Monocytes % 11.1 % (1.7-12.7); Neutrophils # 3.7 10*3/uL (1.4-7.4); Neutrophils % 55.1 % (38.7-73.9); Platelet Count 115 T/CUMM (130-400); Red Blood Count 4.01 MC/CUMM (3.8-5.5); Red Cell Distribution Width 13.8 % (9.3-17.3); White Blood Count 6.7 T/CUMM (4-12)
[2018-06-21 04:55] LABS: Calcium 8.3 MG/DL (8.5-10.1); Potassium 3.9 MMOL/L (3.5-5.1)
[2018-06-21] MEDS: INSULIN REGULAR 100 UNIT/ML SUBCUT SCH ×3 (06:27→17:50)
[2018-06-21] MEDS: CARVEDILOL 6.25 MG TABLET PO SCH ×2 (10:00→20:46)
[2018-06-21] MEDS: INSULIN NPH 100 UNIT/ML SUBCUT SCH ×2 (10:39→16:43)
[2018-06-21] MEDS: ASPIRIN EC 81 MG TABLET PO SCH (14:54)
[2018-06-21] MEDS: ISOSORBIDE MONONITRATE 30 MG TABLET PO SCH (14:54)
[2018-06-21] MEDS: ATORVASTATIN 20 MG TABLET PO SCH (14:54)
[2018-06-21] MEDS: PANTOPRAZOLE 40 MG TABLET PO SCH (14:54)
[2018-06-21] MEDS: TAMSULOSIN 0.4 MG CAPSULE PO SCH ×2 (14:55→20:46)
[2018-06-22] MEDS: INSULIN REGULAR 100 UNIT/ML SUBCUT SCH ×4 (02:00→17:17)
[2018-06-22 03:59] LABS: Basophils # 0.1 10*3/uL (0.0-0.2); Basophils % 0.8 % (0.0-0.8); Eosinophils # 0.4 10*3/uL (0.0-0.87); Eosinophils % 6.7 % (0.00-10.9); Hematocrit 36.8 VOL% (42.0-52.0); Immature Granulocytes % 0.5 %; Immature Granulocytes Absolute 0.03 #; Lymphocytes # 1.8 10*3/uL (1.4-4.0); Lymphocytes % 28.5 % (21.2-54.2); Mean Corpuscular HGB Conc 32.6 GM/DL (32-36); Mean Corpuscular Hemoglobin 29 PG (27-34); Mean Corpuscular Volume 89.5 FL (87-102); Mean Platelet Volume 11.4 FL (9.6-12.0); Monocytes # 0.7 10*3/uL (0.11-0.8); Monocytes % 11.7 % (1.7-12.7); Neutrophils # 3.2 10*3/uL (1.4-7.4); Neutrophils % 51.8 % (38.7-73.9); Platelet Count 129 T/CUMM (130-400); Red Blood Count 4.11 MC/CUMM (3.8-5.5); Red Cell Distribution Width 13.9 % (9.3-17.3); White Blood Count 6.1 T/CUMM (4-12)
[2018-06-22 04:14] LABS: PT Patient Result 11.1 SECS
[2018-06-22 04:50] LABS: Calcium 8.1 MG/DL (8.5-10.1); Osmolality,Calculated 286.1 MOS/KG (273-304)
[2018-06-22] MEDS ORDERED: ceFAZolin 1,000 MG in SYRINGE 1 EACH IV ONE (06:00)
[2018-06-22] MEDS ORDERED: ceFAZolin 1,000 MG VIAL IRRIG ONE (06:00)
[2018-06-22] MEDS: INSULIN NPH 100 UNIT/ML SUBCUT SCH ×2 (07:17→16:46)
[2018-06-22] MEDS: ISOSORBIDE MONONITRATE 30 MG TABLET PO SCH (08:17)
[2018-06-22] MEDS: CARVEDILOL 6.25 MG TABLET PO SCH ×2 (08:17→22:07)
[2018-06-22] MEDS: ASPIRIN EC 81 MG TABLET PO SCH (08:17)
[2018-06-22] MEDS: TAMSULOSIN 0.4 MG CAPSULE PO SCH ×2 (08:17→22:07)
[2018-06-22] MEDS: ATORVASTATIN 20 MG TABLET PO SCH (08:17)
[2018-06-22] MEDS: PANTOPRAZOLE 40 MG TABLET PO SCH (08:17)
[2018-06-22] MEDS ORDERED: LIDOCAINE 1% 20 ML VIAL ONE (09:07)
[2018-06-22] MEDS ORDERED: ceFAZolin 1,000 MG VIAL ONE (09:07)
[2018-06-22] MEDS ORDERED: HEPARIN/NACL 0.9% 2 UNITS/ML 500 ML IV ONE (09:07)
[2018-06-22] MEDS ORDERED: TISSUE ADHESIVE 1 EACH APPLICATOR TOP ONE (10:13)
[2018-06-22] MEDS: AMIODARONE 200 MG TABLET PO SCH ×2 (11:55→22:07)
[2018-06-22] MEDS ORDERED: PROPOFOL 200 MG/20 ML VIAL IV ONE (13:21)
[2018-06-22] MEDS ORDERED: SODIUM CHLORIDE 0.9% 500 ML IV ONE (13:21)
[2018-06-22] MEDS ORDERED: AMIODARONE 150 MG/3 ML VIAL ONE (13:21)
[2018-06-22] MEDS: ceFAZolin 1,000 MG in SYRINGE 1 EACH IV SCH (18:24)
[2018-06-23] MEDS: INSULIN REGULAR 100 UNIT/ML SUBCUT SCH ×4 (00:59→17:27)
[2018-06-23] MEDS: ceFAZolin 1,000 MG in SYRINGE 1 EACH IV SCH (01:06)
[2018-06-23 05:01] LABS: Basophils % 0.4 % (0.0-0.8); Eosinophils # 0.5 10*3/uL (0.0-0.87); Eosinophils % 6.9 % (0.00-10.9); Hematocrit 34.2 VOL% (42.0-52.0); Hemoglobin 11.3 GM/DL (14.0-18.0); Immature Granulocytes % 0.3 %; Immature Granulocytes Absolute 0.02 #; Lymphocytes # 2.1 10*3/uL (1.4-4.0); Lymphocytes % 29.6 % (21.2-54.2); Mean Corpuscular Hemoglobin 29 PG (27-34); Mean Corpuscular Volume 88.6 FL (87-102); Mean Platelet Volume 11.5 FL (9.6-12.0); Monocytes # 0.7 10*3/uL (0.11-0.8); Monocytes % 9.6 % (1.7-12.7); Neutrophils # 3.8 10*3/uL (1.4-7.4); Neutrophils % 53.2 % (38.7-73.9); Platelet Count 146 T/CUMM (130-400); Red Blood Count 3.86 MC/CUMM (3.8-5.5); Red Cell Distribution Width 13.9 % (9.3-17.3); White Blood Count 7.1 T/CUMM (4-12)
[2018-06-23 05:12] LABS: Calcium 8.2 MG/DL (8.5-10.1); Osmolality,Calculated 283.4 MOS/KG (273-304); Potassium 3.9 MMOL/L (3.5-5.1)
[2018-06-23] MEDS: INSULIN NPH 100 UNIT/ML SUBCUT SCH ×2 (08:37→17:28)
[2018-06-23] MEDS: PANTOPRAZOLE 40 MG TABLET PO SCH (12:36)
[2018-06-23] MEDS: ISOSORBIDE MONONITRATE 30 MG TABLET PO SCH (12:36)
[2018-06-23] MEDS: ASPIRIN EC 81 MG TABLET PO SCH (12:36)
[2018-06-23] MEDS: AMIODARONE 200 MG TABLET PO SCH ×2 (12:36→21:16)
[2018-06-23] MEDS: ATORVASTATIN 20 MG TABLET PO SCH (12:36)
[2018-06-23] MEDS: CARVEDILOL 6.25 MG TABLET PO SCH (12:36)
[2018-06-23] MEDS: TAMSULOSIN 0.4 MG CAPSULE PO SCH ×2 (12:36→21:16)
[2018-06-23] MEDS ORDERED: CARVEDILOL 3.125 MG TABLET PO ONE (15:28)
[2018-06-23] MEDS ORDERED: TUBERCULIN SKIN TEST 0.1 ML SYRINGE INTRADERM ONE (16:01)
[2018-06-23] MEDS: CARVEDILOL 12.5 MG TABLET PO SCH (21:16)
[2018-06-24 04:42] LABS: Basophils % 0.5 % (0.0-0.8); Eosinophils # 0.4 10*3/uL (0.0-0.87); Eosinophils % 6.1 % (0.00-10.9); Hematocrit 32.9 VOL% (42.0-52.0); Hemoglobin 10.7 GM/DL (14.0-18.0); Immature Granulocytes % 0.5 %; Immature Granulocytes Absolute 0.03 #; Lymphocytes # 1.6 10*3/uL (1.4-4.0); Lymphocytes % 24.7 % (21.2-54.2); Mean Corpuscular HGB Conc 32.5 GM/DL (32-36); Mean Corpuscular Hemoglobin 29 PG (27-34); Mean Corpuscular Volume 89.2 FL (87-102); Mean Platelet Volume 11.3 FL (9.6-12.0); Monocytes # 0.8 10*3/uL (0.11-0.8); Monocytes % 11.8 % (1.7-12.7); Neutrophils # 3.6 10*3/uL (1.4-7.4); Neutrophils % 56.4 % (38.7-73.9); Platelet Count 124 T/CUMM (130-400); Red Blood Count 3.69 MC/CUMM (3.8-5.5); Red Cell Distribution Width 13.9 % (9.3-17.3); White Blood Count 6.4 T/CUMM (4-12)
[2018-06-24 05:01] LABS: Calcium 7.7 MG/DL (8.5-10.1); Osmolality,Calculated 282.2 MOS/KG (273-304); Potassium 4.2 MMOL/L (3.5-5.1)
[2018-06-24] MEDS: INSULIN REGULAR 100 UNIT/ML SUBCUT SCH ×4 (06:21→17:08)
[2018-06-24] MEDS: AMIODARONE 200 MG TABLET PO SCH ×2 (08:32→20:35)
[2018-06-24] MEDS: ATORVASTATIN 20 MG TABLET PO SCH (08:32)
[2018-06-24] MEDS: CARVEDILOL 12.5 MG TABLET PO SCH (08:32)
[2018-06-24] MEDS: TAMSULOSIN 0.4 MG CAPSULE PO SCH ×2 (08:32→20:35)
[2018-06-24] MEDS: ASPIRIN EC 81 MG TABLET PO SCH (08:32)
[2018-06-24] MEDS: ISOSORBIDE MONONITRATE 30 MG TABLET PO SCH (08:32)
[2018-06-24] MEDS: PANTOPRAZOLE 40 MG TABLET PO SCH (08:33)
[2018-06-24] MEDS: INSULIN NPH 100 UNIT/ML SUBCUT SCH ×2 (08:33→17:09)
[2018-06-24] MEDS ORDERED: hydrALAZINE 20 MG/1 ML VIAL IV PRN (13:30)
[2018-06-24] MEDS ORDERED: DEXTROSE 50% 25 GM/50 ML VIAL IV PRN (15:57)
[2018-06-24] MEDS ORDERED: GLUCAGON 1 MG VIAL IM PRN (15:57)
[2018-06-24] MEDS: CARVEDILOL 25 MG TABLET PO SCH (20:35)
[2018-06-25] MEDS: INSULIN REGULAR 100 UNIT/ML SUBCUT SCH ×5 (00:06→20:55)
[2018-06-25 04:09] LABS: Basophils % 0.5 % (0.0-0.8); Eosinophils # 0.6 10*3/uL (0.0-0.87); Eosinophils % 9.3 % (0.00-10.9); Hematocrit 30.8 VOL% (42.0-52.0); Hemoglobin 10.3 GM/DL (14.0-18.0); Immature Granulocytes % 0.5 %; Immature Granulocytes Absolute 0.03 #; Lymphocytes # 1.9 10*3/uL (1.4-4.0); Mean Corpuscular HGB Conc 33.4 GM/DL (32-36); Mean Corpuscular Hemoglobin 30 PG (27-34); Mean Corpuscular Volume 89.5 FL (87-102); Mean Platelet Volume 11.2 FL (9.6-12.0); Monocytes # 0.6 10*3/uL (0.11-0.8); Neutrophils # 3.2 10*3/uL (1.4-7.4); Neutrophils % 49.7 % (38.7-73.9); Platelet Count 117 T/CUMM (130-400); Red Blood Count 3.44 MC/CUMM (3.8-5.5); White Blood Count 6.3 T/CUMM (4-12)
[2018-06-25 04:34] LABS: Calcium 7.3 MG/DL (8.5-10.1); Osmolality,Calculated 285.2 MOS/KG (273-304); Potassium 4.3 MMOL/L (3.5-5.1)
[2018-06-25] MEDS: INSULIN NPH 100 UNIT/ML SUBCUT SCH ×2 (08:59→17:00)
[2018-06-25] MEDS: CARVEDILOL 25 MG TABLET PO SCH ×2 (09:00→20:25)
[2018-06-25] MEDS: ASPIRIN EC 81 MG TABLET PO SCH (09:00)
[2018-06-25] MEDS: PANTOPRAZOLE 40 MG TABLET PO SCH (09:00)
[2018-06-25] MEDS: TAMSULOSIN 0.4 MG CAPSULE PO SCH ×2 (09:00→20:24)
[2018-06-25] MEDS: AMIODARONE 200 MG TABLET PO SCH ×2 (09:00→20:24)
[2018-06-25] MEDS: ISOSORBIDE MONONITRATE 30 MG TABLET PO SCH (09:00)
[2018-06-25] MEDS: ATORVASTATIN 20 MG TABLET PO SCH (09:00)
[2018-06-26 05:41] LABS: Basophils % 0.6 % (0.0-0.8); Eosinophils # 0.6 10*3/uL (0.0-0.87); Eosinophils % 9.9 % (0.00-10.9); Hematocrit 29.9 VOL% (42.0-52.0); Hemoglobin 9.9 GM/DL (14.0-18.0); Immature Granulocytes % 0.5 %; Immature Granulocytes Absolute 0.03 #; Lymphocytes # 1.8 10*3/uL (1.4-4.0); Lymphocytes % 28.9 % (21.2-54.2); Mean Corpuscular HGB Conc 33.1 GM/DL (32-36); Mean Corpuscular Hemoglobin 30 PG (27-34); Mean Platelet Volume 11.7 FL (9.6-12.0); Monocytes # 0.7 10*3/uL (0.11-0.8); Monocytes % 11.3 % (1.7-12.7); Neutrophils # 3.1 10*3/uL (1.4-7.4); Neutrophils % 48.8 % (38.7-73.9); Platelet Count 130 T/CUMM (130-400); Red Blood Count 3.36 MC/CUMM (3.8-5.5); White Blood Count 6.4 T/CUMM (4-12)
[2018-06-26 05:47] LABS: Calcium 7.3 MG/DL (8.5-10.1); Osmolality,Calculated 292.4 MOS/KG (273-304); Potassium 4.7 MMOL/L (3.5-5.1)
[2018-06-26] MEDS: INSULIN NPH 100 UNIT/ML SUBCUT SCH ×2 (12:22→16:23)
[2018-06-26] MEDS: INSULIN REGULAR 100 UNIT/ML SUBCUT SCH ×4 (12:22→20:58)
[2018-06-26] MEDS: AMIODARONE 200 MG TABLET PO SCH ×2 (12:24→20:52)
[2018-06-26] MEDS: ASPIRIN EC 81 MG TABLET PO SCH (12:25)
[2018-06-26] MEDS: TAMSULOSIN 0.4 MG CAPSULE PO SCH ×2 (12:25→20:52)
[2018-06-26] MEDS: PANTOPRAZOLE 40 MG TABLET PO SCH (12:25)
[2018-06-26] MEDS: ISOSORBIDE MONONITRATE 30 MG TABLET PO SCH (12:25)
[2018-06-26] MEDS: CARVEDILOL 25 MG TABLET PO SCH ×2 (12:25→20:51)
[2018-06-26] MEDS: ATORVASTATIN 20 MG TABLET PO SCH (12:29)
[2018-06-26] MEDS ORDERED: INSULIN GLARGINE 100 UNIT/ML SUBCUT SCH (21:00)
[2018-06-27] MEDS: TAMSULOSIN 0.4 MG CAPSULE PO SCH (09:00)
[2018-06-27] MEDS: AMIODARONE 200 MG TABLET PO SCH (09:00)
[2018-06-27] MEDS: ASPIRIN EC 81 MG TABLET PO SCH (09:00)
[2018-06-27] MEDS: CARVEDILOL 25 MG TABLET PO SCH (09:02)
[2018-06-27] MEDS: ATORVASTATIN 20 MG TABLET PO SCH (09:02)
[2018-06-27] MEDS: ISOSORBIDE MONONITRATE 30 MG TABLET PO SCH (09:03)
[2018-06-27] MEDS: PANTOPRAZOLE 40 MG TABLET PO SCH (09:03)
[2018-06-27] MEDS: INSULIN REGULAR 100 UNIT/ML SUBCUT SCH (09:33)
[2018-06-27 12:33] VITALS: BP 111/82
== END 2018-06-27 13:33 | DRG 242 ==
LOC: EDUNIT# → EDBD → N.ED 00:04 → SUATTDRO 04:57 → N.TELES 05:53
PROVIDERS: ADMIT Internal Medicine; ATTEND Internal Medicine

== ENCOUNTER 2018-07-11 23:35 | Inpatient (IN) ==
[2018-07-12] MEDS ORDERED: FLUMAZENIL 1 MG/10 ML VIAL IV STA (00:03)
[2018-07-12] MEDS ORDERED: NALOXONE 0.4 MG/ML VIAL IV STA (00:03)
[2018-07-12 00:14] LABS: Basophils % 0.7 % (0.0-0.8); Eosinophils # 0.5 10*3/uL (0.0-0.87); Eosinophils % 7.9 % (0.00-10.9); Hematocrit 33.5 VOL% (42.0-52.0); Hemoglobin 10.4 GM/DL (14.0-18.0); Immature Granulocytes % 0.2 %; Immature Granulocytes Absolute 0.01 #; Lymphocytes # 1.6 10*3/uL (1.4-4.0); Lymphocytes % 27.8 % (21.2-54.2); Mean Corpuscular Hemoglobin 29 PG (27-34); Mean Corpuscular Volume 93.3 FL (87-102); Mean Platelet Volume 10.5 FL (9.6-12.0); Monocytes # 0.6 10*3/uL (0.11-0.8); Monocytes % 10.7 % (1.7-12.7); Neutrophils # 3.1 10*3/uL (1.4-7.4); Neutrophils % 52.7 % (38.7-73.9); Platelet Count 136 T/CUMM (130-400); Red Blood Count 3.59 MC/CUMM (3.8-5.5); Red Cell Distribution Width 14.5 % (9.3-17.3); White Blood Count 5.8 T/CUMM (4-12)
[2018-07-12] MEDS ORDERED: FLUMAZENIL 0.5 MG/5 ML VIAL IV STA (00:26)
[2018-07-12 01:00] LABS: Alanine Aminotransferase 16 U/L (16-61); Albumin 3.7 G/DL (3.4-5.0); Alkaline Phosphatase 103 U/L (45-117); Aspartate Amino Transferase 25 U/L (0-37); Blood Urea Nitrogen 38 MG/DL (7-18); Calcium 8.5 MG/DL (8.5-10.1); Glucose 158 MG/DL (74-106); Osmolality,Calculated 292.3 MOS/KG (273-304); Potassium 4.2 MMOL/L (3.5-5.1); Sodium 141 MMOL/L (136-145); Total Protein 7.6 G/DL (6.4-8.3)
[2018-07-12 01:21] LABS: Sedimentation Rate-Westergren 64 MM/HR (0-20)
[2018-07-12] MEDS ORDERED: CEFEPIME 2,000 MG in SODIUM CHLORIDE 0.9% 100 ML IV STA (01:30)
[2018-07-12] MEDS ORDERED: VANCOMYCIN INJ 1,000 MG in SODIUM CHLORIDE 0.9% 250 ML IV STA (01:30)
[2018-07-12] MEDS ORDERED: ONDANSETRON 4 MG/2 ML VIAL ONE ×2 (01:50→01:51)
[2018-07-12] MEDS ORDERED: ONDANSETRON 4 MG/2 ML VIAL IV STA ×2 (01:51→02:05)
[2018-07-12] MEDS ORDERED: DEXTROSE 50% 25 GM/50 ML SYRINGE IV PRN (03:38)
[2018-07-12] MEDS ORDERED: ALBUTEROL/IPRATROPIUM 3 ML NEB RESP TX PRN (03:38)
[2018-07-12] MEDS ORDERED: GLUCAGON 1 MG VIAL IM PRN (03:38)
[2018-07-12] MEDS ORDERED: ONDANSETRON 4 MG/2 ML VIAL IV PRN (03:38)
[2018-07-12] MEDS ORDERED: ACETAMINOPHEN 325 MG TABLET PO PRN (03:38)
[2018-07-12] MEDS ORDERED: BISACODYL 5 MG TABLET PO PRN (03:45)
[2018-07-12] MEDS ORDERED: hydrALAZINE 20 MG/1 ML VIAL IV PRN (03:47)
[2018-07-12] MEDS: AZITHROMYCIN INJ 500 MG in SODIUM CHLORIDE 0.9% 250 ML IV SCH (05:21)
[2018-07-12] MEDS: INSULIN REGULAR 100 UNIT/ML SUBCUT SCH ×4 (08:19→20:50)
[2018-07-12] MEDS: DILTIAZEM CD 180 MG CAPSULE PO SCH (08:20)
[2018-07-12] MEDS: ATORVASTATIN 20 MG TABLET PO SCH (08:20)
[2018-07-12] MEDS: ASPIRIN EC 81 MG TABLET PO SCH (08:20)
[2018-07-12] MEDS: AMIODARONE 200 MG TABLET PO SCH (08:20)
[2018-07-12] MEDS: CALCIUM ACETATE 667 MG CAPSULE PO SCH ×3 (08:20→17:41)
[2018-07-12] MEDS: CARVEDILOL 25 MG TABLET PO SCH ×2 (08:20→17:41)
[2018-07-12] MEDS: PANTOPRAZOLE 40 MG TABLET PO SCH (08:20)
[2018-07-12] MEDS: ISOSORBIDE MONONITRATE 30 MG TABLET PO SCH (08:20)
[2018-07-12] MEDS: ENOXAPARIN 30 MG/0.3 ML SYRINGE SUBCUT SCH (08:21)
[2018-07-12] MEDS: TAMSULOSIN 0.4 MG CAPSULE PO SCH ×2 (08:22→20:50)
[2018-07-12] MEDS: hydrALAZINE 25 MG TABLET PO SCH ×3 (08:22→20:50)
[2018-07-12] MEDS: cefTRIAXone 1,000 MG in SYRINGE 1 EACH IV SCH (12:51)
[2018-07-12] MEDS ORDERED: EPOETIN ALFA 2,000 UNIT/1 ML VIAL IV PRN (13:12)
[2018-07-13] MEDS: AZITHROMYCIN INJ 500 MG in SODIUM CHLORIDE 0.9% 250 ML IV SCH (04:22)
[2018-07-13 05:07] LABS: Basophils % 0.5 % (0.0-0.8); Eosinophils # 0.3 10*3/uL (0.0-0.87); Eosinophils % 7.2 % (0.00-10.9); Hematocrit 25.6 VOL% (42.0-52.0); Hemoglobin 7.8 GM/DL (14.0-18.0); Immature Granulocytes % 0.2 %; Immature Granulocytes Absolute 0.01 #; Lymphocytes # 1.3 10*3/uL (1.4-4.0); Lymphocytes % 32.6 % (21.2-54.2); Mean Corpuscular HGB Conc 30.5 GM/DL (32-36); Mean Corpuscular Hemoglobin 29 PG (27-34); Mean Corpuscular Volume 95.5 FL (87-102); Mean Platelet Volume 10.7 FL (9.6-12.0); Monocytes # 0.5 10*3/uL (0.11-0.8); Monocytes % 11.2 % (1.7-12.7); Neutrophils # 1.9 10*3/uL (1.4-7.4); Neutrophils % 48.3 % (38.7-73.9); Red Blood Count 2.68 MC/CUMM (3.8-5.5); Red Cell Distribution Width 14.6 % (9.3-17.3)
[2018-07-13 05:08] LABS: Platelet Count 99 T/CUMM (130-400)
[2018-07-13 05:36] LABS: Albumin 2.4 G/DL (3.4-5.0); Bilirubin,Total 0.6 MG/DL (0.2-1.0); Calcium 6.7 MG/DL (8.5-10.1); Osmolality,Calculated 287.8 MOS/KG (273-304); Potassium 3.4 MMOL/L (3.5-5.1); Total Protein 5.2 G/DL (6.4-8.3)
[2018-07-13 05:37] LABS: Hypochromasia 1+; Microcytosis 1+; Platelet Estimate Decreased; Polychromasia Few
[2018-07-13] MEDS ORDERED: POTASSIUM CHLORIDE 20 MEQ TABLET PO ONE (06:30)
[2018-07-13] MEDS: INSULIN REGULAR 100 UNIT/ML SUBCUT SCH ×4 (07:23→21:08)
[2018-07-13 07:30] LABS: Hematocrit 29.2 VOL% (42.0-52.0); Hemoglobin 9.1 GM/DL (14.0-18.0)
[2018-07-13] MEDS: DILTIAZEM CD 180 MG CAPSULE PO SCH (08:32)
[2018-07-13] MEDS: CALCIUM ACETATE 667 MG CAPSULE PO SCH ×3 (08:32→16:00)
[2018-07-13] MEDS: hydrALAZINE 25 MG TABLET PO SCH ×3 (08:32→21:07)
[2018-07-13] MEDS: ISOSORBIDE MONONITRATE 30 MG TABLET PO SCH (08:33)
[2018-07-13] MEDS: ENOXAPARIN 30 MG/0.3 ML SYRINGE SUBCUT SCH (08:33)
[2018-07-13] MEDS: CARVEDILOL 25 MG TABLET PO SCH ×2 (08:33→16:00)
[2018-07-13] MEDS: ATORVASTATIN 20 MG TABLET PO SCH (08:33)
[2018-07-13] MEDS: PANTOPRAZOLE 40 MG TABLET PO SCH (08:33)
[2018-07-13] MEDS: ASPIRIN EC 81 MG TABLET PO SCH (08:33)
[2018-07-13] MEDS: TAMSULOSIN 0.4 MG CAPSULE PO SCH ×2 (08:33→21:07)
[2018-07-13] MEDS: AMIODARONE 200 MG TABLET PO SCH (08:33)
[2018-07-13] MEDS: cefTRIAXone 1,000 MG in SYRINGE 1 EACH IV SCH (12:47)
[2018-07-14 08:13] VITALS: BP 158/65
[2018-07-14] MEDS ORDERED: AZITHROMYCIN 250 MG TABLET PO SCH (09:00)
[2018-07-14] MEDS: CALCIUM ACETATE 667 MG CAPSULE PO SCH ×2 (09:09→12:59)
[2018-07-14] MEDS: hydrALAZINE 25 MG TABLET PO SCH (09:10)
[2018-07-14] MEDS: ATORVASTATIN 20 MG TABLET PO SCH (09:10)
[2018-07-14] MEDS: TAMSULOSIN 0.4 MG CAPSULE PO SCH (09:10)
[2018-07-14] MEDS: ISOSORBIDE MONONITRATE 30 MG TABLET PO SCH (09:10)
[2018-07-14] MEDS: AMIODARONE 200 MG TABLET PO SCH (09:10)
[2018-07-14] MEDS: DILTIAZEM CD 180 MG CAPSULE PO SCH (09:10)
[2018-07-14] MEDS: CARVEDILOL 25 MG TABLET PO SCH (09:10)
[2018-07-14] MEDS: INSULIN REGULAR 100 UNIT/ML SUBCUT SCH ×2 (09:10→12:58)
[2018-07-14] MEDS: ASPIRIN EC 81 MG TABLET PO SCH (09:10)
[2018-07-14] MEDS: PANTOPRAZOLE 40 MG TABLET PO SCH (09:10)
[2018-07-14] MEDS: ENOXAPARIN 30 MG/0.3 ML SYRINGE SUBCUT SCH (09:47)
[2018-07-14] MEDS: cefTRIAXone 1,000 MG in SYRINGE 1 EACH IV SCH (12:35)
== END 2018-07-14 14:56 | disposition home health service (06) | DRG 193 ==
LOC: EDUNIT# → EDBD → N.ED 23:35 → N.EDINP 07-12 02:59 → N.TELES 07-12 03:17
PROVIDERS: ADMIT Internal Medicine; ATTEND Internal Medicine

== ENCOUNTER 2018-07-16 20:07 | Inpatient (IN) ==
[2018-07-16] MEDS ORDERED: METOCLOPRAMIDE 10 MG/2 ML VIAL IV STA (20:16)
[2018-07-16 21:16] LABS: Basophils % 0.3 % (0.0-0.8); Eosinophils # 0.1 10*3/uL (0.0-0.87); Eosinophils % 2.1 % (0.00-10.9); Hematocrit 34.4 VOL% (42.0-52.0); Immature Granulocytes % 0.5 %; Immature Granulocytes Absolute 0.03 #; Lymphocytes # 0.8 10*3/uL (1.4-4.0); Lymphocytes % 13.9 % (21.2-54.2); Mean Corpuscular Volume 91.7 FL (87-102); Mean Platelet Volume 10.7 FL (9.6-12.0); Monocytes % 6.7 % (1.7-12.7); Neutrophils % 76.5 % (38.7-73.9); Platelet Count 144 T/CUMM (130-400); Red Blood Count 3.75 MC/CUMM (3.8-5.5); Red Cell Distribution Width 14.4 % (9.3-17.3); White Blood Count 5.8 T/CUMM (4-12)
[2018-07-16 21:36] LABS: INR 1.1; PT Patient Result 11.6 SECS
[2018-07-16 21:37] LABS: Bilirubin,Total 0.6 MG/DL (0.2-1.0); Calcium 8.9 MG/DL (8.5-10.1); Osmolality,Calculated 290.2 MOS/KG (273-304); Total Protein 8.2 G/DL (6.4-8.3)
[2018-07-16] MEDS ORDERED: hydrALAZINE 20 MG/1 ML VIAL IV STA (21:46)
[2018-07-16] MEDS ORDERED: diphenhydrAMINE CAP 25 MG CAPSULE PO PRN (23:39)
[2018-07-16] MEDS ORDERED: DEXTROSE 50% 25 GM/50 ML SYRINGE IV PRN (23:39)
[2018-07-16] MEDS ORDERED: ACETAMINOPHEN 325 MG TABLET PO PRN (23:39)
[2018-07-16] MEDS ORDERED: MORPHINE 4 MG/1 ML VIAL IV PRN (23:39)
[2018-07-16] MEDS ORDERED: NICOTINE 21 MG/24 HR PATCH TRANSDERM PRN (23:39)
[2018-07-16] MEDS ORDERED: PROMETHAZINE 25 MG/1 ML VIAL IM PRN (23:39)
[2018-07-16] MEDS ORDERED: BISACODYL 5 MG TABLET PO PRN (23:39)
[2018-07-16] MEDS ORDERED: GLUCAGON 1 MG VIAL IM PRN (23:39)
[2018-07-16] MEDS ORDERED: ONDANSETRON 4 MG/2 ML VIAL IV PRN (23:39)
[2018-07-17] MEDS: CARVEDILOL 25 MG TABLET PO SCH ×3 (04:18→18:20)
[2018-07-17] MEDS: INSULIN GLARGINE 100 UNIT/ML SUBCUT SCH ×2 (04:18→20:51)
[2018-07-17] MEDS: INSULIN REGULAR 100 UNIT/ML SUBCUT SCH ×5 (04:18→20:50)
[2018-07-17] MEDS: AMIODARONE 200 MG TABLET PO SCH (08:39)
[2018-07-17] MEDS: AZITHROMYCIN 250 MG TABLET PO SCH (08:39)
[2018-07-17] MEDS: TAMSULOSIN 0.4 MG CAPSULE PO SCH ×2 (08:39→20:50)
[2018-07-17] MEDS: PANTOPRAZOLE 40 MG TABLET PO SCH (08:40)
[2018-07-17] MEDS: hydrALAZINE 25 MG TABLET PO SCH ×3 (08:40→20:50)
[2018-07-17] MEDS: ASPIRIN EC 81 MG TABLET PO SCH (08:40)
[2018-07-17] MEDS ORDERED: CALCIUM ACETATE 667 MG CAPSULE PO SCH (09:00)
[2018-07-17] MEDS ORDERED: ALBUTEROL/IPRATROPIUM 3 ML NEB RESP TX PRN (13:05)
[2018-07-17] MEDS: ISOSORBIDE MONONITRATE 30 MG TABLET PO SCH (13:11)
[2018-07-17] MEDS ORDERED: TUBERCULIN SKIN TEST 0.1 ML SYRINGE INTRADERM ONE (16:00)
[2018-07-17] MEDS: CALCIUM ACETATE 667 MG CAPSULE PO SCH (18:21)
[2018-07-17] MEDS: DILTIAZEM CD 180 MG CAPSULE PO SCH (18:21)
[2018-07-17] MEDS: ATORVASTATIN 20 MG TABLET PO SCH (20:50)
[2018-07-18 05:22] LABS: Basophils % 0.7 % (0.0-0.8); Eosinophils # 0.2 10*3/uL (0.0-0.87); Eosinophils % 3.3 % (0.00-10.9); Hematocrit 29.9 VOL% (42.0-52.0); Hemoglobin 9.2 GM/DL (14.0-18.0); Immature Granulocytes % 0.5 %; Immature Granulocytes Absolute 0.03 #; Lymphocytes # 1.3 10*3/uL (1.4-4.0); Lymphocytes % 21.9 % (21.2-54.2); Mean Corpuscular HGB Conc 30.8 GM/DL (32-36); Mean Corpuscular Volume 94.6 FL (87-102); Mean Platelet Volume 10.6 FL (9.6-12.0); Neutrophils % 61.6 % (38.7-73.9); Platelet Count 133 T/CUMM (130-400); Red Blood Count 3.16 MC/CUMM (3.8-5.5); Red Cell Distribution Width 14.9 % (9.3-17.3); White Blood Count 6.1 T/CUMM (4-12)
[2018-07-18 05:59] LABS: Calcium 8.6 MG/DL (8.5-10.1); Osmolality,Calculated 286.1 MOS/KG (273-304)
[2018-07-18] MEDS: INSULIN REGULAR 100 UNIT/ML SUBCUT SCH ×4 (07:43→23:33)
[2018-07-18] MEDS: DILTIAZEM CD 180 MG CAPSULE PO SCH (08:13)
[2018-07-18] MEDS: TAMSULOSIN 0.4 MG CAPSULE PO SCH ×2 (08:13→23:33)
[2018-07-18] MEDS: AZITHROMYCIN 250 MG TABLET PO SCH (08:13)
[2018-07-18] MEDS: AMIODARONE 200 MG TABLET PO SCH (08:13)
[2018-07-18] MEDS: ISOSORBIDE MONONITRATE 30 MG TABLET PO SCH (08:13)
[2018-07-18] MEDS: PANTOPRAZOLE 40 MG TABLET PO SCH (08:13)
[2018-07-18] MEDS: CARVEDILOL 25 MG TABLET PO SCH ×2 (08:13→16:57)
[2018-07-18] MEDS: CALCIUM ACETATE 667 MG CAPSULE PO SCH ×3 (08:14→16:57)
[2018-07-18] MEDS: ASPIRIN EC 81 MG TABLET PO SCH (08:15)
[2018-07-18] MEDS: hydrALAZINE 25 MG TABLET PO SCH ×3 (09:09→23:33)
[2018-07-18] MEDS ORDERED: INSULIN GLARGINE 100 UNIT/ML SUBCUT SCH (09:12)
[2018-07-18] MEDS: ATORVASTATIN 20 MG TABLET PO SCH (23:34)
[2018-07-19 05:03] LABS: Basophils % 0.6 % (0.0-0.8); Eosinophils # 0.2 10*3/uL (0.0-0.87); Eosinophils % 4.9 % (0.00-10.9); Hematocrit 27.9 VOL% (42.0-52.0); Hemoglobin 8.7 GM/DL (14.0-18.0); Immature Granulocytes % 0.4 %; Immature Granulocytes Absolute 0.02 #; Lymphocytes # 1.4 10*3/uL (1.4-4.0); Lymphocytes % 29.5 % (21.2-54.2); Mean Corpuscular HGB Conc 31.2 GM/DL (32-36); Mean Corpuscular Volume 93.6 FL (87-102); Mean Platelet Volume 11.3 FL (9.6-12.0); Monocytes % 11.1 % (1.7-12.7); Neutrophils % 53.5 % (38.7-73.9); Platelet Count 131 T/CUMM (130-400); Red Blood Count 2.98 MC/CUMM (3.8-5.5); Red Cell Distribution Width 14.6 % (9.3-17.3); White Blood Count 4.9 T/CUMM (4-12)
[2018-07-19 05:28] LABS: Calcium 8.1 MG/DL (8.5-10.1); Osmolality,Calculated 284.5 MOS/KG (273-304)
[2018-07-19] MEDS: INSULIN REGULAR 100 UNIT/ML SUBCUT SCH ×3 (08:20→16:14)
[2018-07-19] MEDS: CALCIUM ACETATE 667 MG CAPSULE PO SCH ×3 (08:31→16:15)
[2018-07-19] MEDS: AZITHROMYCIN 250 MG TABLET PO SCH (08:31)
[2018-07-19] MEDS: hydrALAZINE 25 MG TABLET PO SCH (08:32)
[2018-07-19] MEDS: TAMSULOSIN 0.4 MG CAPSULE PO SCH (08:32)
[2018-07-19] MEDS: DILTIAZEM CD 180 MG CAPSULE PO SCH (08:32)
[2018-07-19] MEDS: ASPIRIN EC 81 MG TABLET PO SCH (08:32)
[2018-07-19] MEDS: PANTOPRAZOLE 40 MG TABLET PO SCH (08:32)
[2018-07-19] MEDS: ISOSORBIDE MONONITRATE 30 MG TABLET PO SCH (08:32)
[2018-07-19] MEDS: AMIODARONE 200 MG TABLET PO SCH (08:32)
[2018-07-19] MEDS: CARVEDILOL 25 MG TABLET PO SCH ×2 (08:32→16:15)
[2018-07-19] MEDS ORDERED: POLYETHYLENE GLYCOL POWDER 17 GM PACK PO SCH (09:00)
[2018-07-19] MEDS ORDERED: DOCUSATE SODIUM 100 MG CAPSULE PO SCH (09:00)
[2018-07-19 16:08] VITALS: BP 114/96
== END 2018-07-19 17:18 | DRG 291 ==
LOC: EDBD → EDUNIT# → N.ED 20:07 → N.EDINP 20:07 → N.5E 07-17 01:03 → SUATTDRO 07-17 09:52
PROVIDERS: ADMIT Internal Medicine; ATTEND Hospitalist

== ENCOUNTER 2018-07-30 09:04 | Inpatient (IN) ==
[2018-07-30] MEDS ORDERED: ONDANSETRON 4 MG/2 ML VIAL IV STA (09:29)
[2018-07-30] MEDS ORDERED: SODIUM CHLORIDE 0.9% 250 ML IV STA (09:35)
[2018-07-30] MEDS ORDERED: LOPERAMIDE 2 MG CAPSULE PO STA (09:35)
[2018-07-30 09:39] LABS: Basophils % 0.4 % (0.0-0.8); Eosinophils # 0.1 10*3/uL (0.0-0.87); Eosinophils % 1.1 % (0.00-10.9); Hematocrit 36.4 VOL% (42.0-52.0); Hemoglobin 11.3 GM/DL (14.0-18.0); Immature Granulocytes % 0.6 %; Immature Granulocytes Absolute 0.05 #; Lymphocytes # 0.8 10*3/uL (1.4-4.0); Lymphocytes % 9.7 % (21.2-54.2); Mean Corpuscular Volume 92.9 FL (87-102); Mean Platelet Volume 11.1 FL (9.6-12.0); Monocytes % 4.4 % (1.7-12.7); Neutrophils % 83.8 % (38.7-73.9); Platelet Count 131 T/CUMM (130-400); Red Blood Count 3.92 MC/CUMM (3.8-5.5); Red Cell Distribution Width 14.5 % (9.3-17.3)
[2018-07-30 09:59] LABS: Albumin 4.1 G/DL (3.4-5.0); Bilirubin,Total 0.8 MG/DL (0.2-1.0); Calcium 9.9 MG/DL (8.5-10.1); Osmolality,Calculated 286.8 MOS/KG (273-304); Total Protein 8.3 G/DL (6.4-8.3)
[2018-07-30] MEDS ORDERED: ACETAMINOPHEN 325 MG TABLET PO PRN ×2 (15:56)
[2018-07-30] MEDS ORDERED: ONDANSETRON 4 MG/2 ML VIAL IV PRN (15:56)
[2018-07-30] MEDS ORDERED: PROMETHAZINE 25 MG/1 ML VIAL IM PRN (15:56)
[2018-07-30] MEDS ORDERED: hydrALAZINE 20 MG/1 ML VIAL IV PRN (16:34)
[2018-07-30] MEDS ORDERED: INSULIN GLARGINE 100 UNIT/ML SUBCUT SCH (21:00)
[2018-07-30] MEDS: INSULIN REGULAR 100 UNIT/ML SUBCUT SCH ×2 (21:39→21:56)
[2018-07-30] MEDS: CALCIUM ACETATE 667 MG CAPSULE PO SCH (21:39)
[2018-07-30] MEDS: DOXAZOSIN 1 MG TABLET PO SCH (21:55)
[2018-07-30] MEDS: CARVEDILOL 25 MG TABLET PO SCH (21:56)
[2018-07-30] MEDS: TAMSULOSIN 0.4 MG CAPSULE PO SCH (21:56)
[2018-07-31 03:57] LABS: Apearance,Urine CLOUDY (Clear); Bilirubin,Urine Negative (Negative); Blood, Urine Small mg/dL (Negative); Glucose,Urine (UA) 150 mg/dL (Negative); Hyaline Casts,Urine 5 /LPF (0-3); Ketones,Urine Negative (Negative); Mucus,Urine Occasional /LPF (Occasional); Nitrite,Urine Negative (Negative); Protein,Urine >=500 MG/DL; RBC,Urine 16 /HPF (0-4); Squamous Epithelial Cell,Urine Few /HPF (0-10); Transitional Epi Cells,Urine Occasional /HPF (<1); Urine Color Amber (Yellow); Urine Specific Gravity 1.018 (1.001-1.035); Urine Urobilinogen < 2.0 EU/DL (0.2-1.0); WBC,Urine 23 /HPF (0-6)
[2018-07-31 05:13] LABS: Calcium 8.9 MG/DL (8.5-10.1); Osmolality,Calculated 278.4 MOS/KG (273-304)
[2018-07-31 07:16] LABS: Basophils % 0.4 % (0.0-0.8); Eosinophils # 0.2 10*3/uL (0.0-0.87); Eosinophils % 2.1 % (0.00-10.9); Hematocrit 31.9 VOL% (42.0-52.0); Hemoglobin 9.8 GM/DL (14.0-18.0); Immature Granulocytes % 0.4 %; Immature Granulocytes Absolute 0.03 #; Lymphocytes # 1.2 10*3/uL (1.4-4.0); Lymphocytes % 16.1 % (21.2-54.2); Mean Corpuscular HGB Conc 30.7 GM/DL (32-36); Mean Corpuscular Volume 94.4 FL (87-102); Mean Platelet Volume 10.8 FL (9.6-12.0); Monocytes % 10.6 % (1.7-12.7); Neutrophils % 70.4 % (38.7-73.9); Platelet Count 115 T/CUMM (130-400); Red Blood Count 3.38 MC/CUMM (3.8-5.5); Red Cell Distribution Width 14.5 % (9.3-17.3); White Blood Count 7.6 T/CUMM (4-12)
[2018-07-31] MEDS: INSULIN REGULAR 100 UNIT/ML SUBCUT SCH ×3 (08:13→17:25)
[2018-07-31] MEDS: CARVEDILOL 25 MG TABLET PO SCH ×2 (08:59→17:25)
[2018-07-31] MEDS ORDERED: ATORVASTATIN 20 MG TABLET PO SCH (09:00)
[2018-07-31] MEDS: CALCIUM ACETATE 667 MG CAPSULE PO SCH ×3 (09:00→17:25)
[2018-07-31] MEDS ORDERED: AMIODARONE 200 MG TABLET PO SCH (09:00)
[2018-07-31] MEDS: DOXAZOSIN 1 MG TABLET PO SCH (09:00)
[2018-07-31] MEDS ORDERED: ISOSORBIDE MONONITRATE 30 MG TABLET PO SCH (09:00)
[2018-07-31] MEDS ORDERED: PANTOPRAZOLE 40 MG TABLET PO SCH (09:00)
[2018-07-31] MEDS ORDERED: DILTIAZEM CD 180 MG CAPSULE PO SCH (09:00)
[2018-07-31] MEDS ORDERED: ASPIRIN EC 81 MG TABLET PO SCH (09:00)
[2018-07-31] MEDS: TAMSULOSIN 0.4 MG CAPSULE PO SCH (09:00)
[2018-07-31 16:46] VITALS: BP 128/80
== END 2018-07-31 20:42 | disposition home health service (06) | DRG 291 ==
LOC: EDUNIT# → SUATTDRO → N.ED 09:04 → N.EDINP 18:17 → N.TELES 19:51
PROVIDERS: ADMIT Hospitalist; ATTEND Hospitalist

== ENCOUNTER 2018-11-01 07:02 | Observation (INO) ==
[2018-11-01 07:35] LABS: Basophils % 0.2 % (0.0-0.8); Eosinophils % 0.1 % (0.00-10.9); Hematocrit 34.9 VOL% (42.0-52.0); Hemoglobin 10.8 GM/DL (14.0-18.0); Immature Granulocytes % 0.8 %; Lymphocytes % 7.3 % (21.2-54.2); Mean Corpuscular HGB Conc 30.9 GM/DL (32-36); Mean Corpuscular Volume 93.8 FL (87-102); Mean Platelet Volume 11.6 FL (9.6-12.0); Monocytes % 11.5 % (1.7-12.7); Neutrophils % 80.1 % (38.7-73.9); Platelet Count 110 T/CUMM (130-400); Red Blood Count 3.72 MC/CUMM (3.8-5.5); Red Cell Distribution Width 15.6 % (9.3-17.3); White Blood Count 13.2 T/CUMM (4-12)
[2018-11-01] MEDS ORDERED: DILTIAZEM 50 MG/10 ML VIAL IV STA (07:50)
[2018-11-01] MEDS ORDERED: DILTIAZEM 25 MG/5 ML VIAL IV ONE (07:52)
[2018-11-01 07:53] LABS: Albumin 3.4 G/DL (3.4-5.0); Bilirubin,Total 1.2 MG/DL (0.2-1.0); Calcium 8.9 MG/DL (8.5-10.1); Osmolality,Calculated 295.7 MOS/KG (273-304); Total Protein 7.4 G/DL (6.4-8.3)
[2018-11-01] MEDS ORDERED: ACETAMINOPHEN 325 MG TABLET PO PRN (09:44)
[2018-11-01] MEDS ORDERED: GLUCAGON 1 MG VIAL IM PRN (09:52)
[2018-11-01] MEDS ORDERED: DEXTROSE 10% 25 GM/250 ML BAG IV PRN (09:52)
[2018-11-01 11:03] LABS: Risk Ratio 3.14; Thyroid Stimulating Hormone 0.552 uIU/ml (0.358-3.74)
[2018-11-01] MEDS: INSULIN LISPRO 100 UNIT/ML SUBCUT SCH ×3 (14:07→20:58)
[2018-11-01] MEDS: AMIODARONE 200 MG TABLET PO SCH (14:08)
[2018-11-02 05:05] LABS: Basophils % 0.3 % (0.0-0.8); Eosinophils # 0.1 10*3/uL (0.0-0.87); Eosinophils % 0.6 % (0.00-10.9); Hematocrit 28.8 VOL% (42.0-52.0); Hemoglobin 9.3 GM/DL (14.0-18.0); Immature Granulocytes % 4.8 %; Immature Granulocytes Absolute 0.49 #; Lymphocytes # 1.1 10*3/uL (1.4-4.0); Lymphocytes % 10.6 % (21.2-54.2); Mean Corpuscular HGB Conc 32.3 GM/DL (32-36); Mean Corpuscular Volume 91.1 FL (87-102); Mean Platelet Volume 12.3 FL (9.6-12.0); Monocytes % 10.4 % (1.7-12.7); Neutrophils % 73.3 % (38.7-73.9); Red Blood Count 3.16 MC/CUMM (3.8-5.5); Red Cell Distribution Width 15.4 % (9.3-17.3); White Blood Count 10.2 T/CUMM (4-12)
[2018-11-02 05:08] LABS: Platelet Count 84 T/CUMM (130-400)
[2018-11-02 05:40] LABS: Calcium 8.8 MG/DL (8.5-10.1); Osmolality,Calculated 296.5 MOS/KG (273-304)
[2018-11-02] MEDS: INSULIN LISPRO 100 UNIT/ML SUBCUT SCH ×3 (07:35→16:38)
[2018-11-02] MEDS: AMIODARONE 200 MG TABLET PO SCH (08:38)
[2018-11-02] MEDS ORDERED: AMIODARONE 200 MG TABLET PO SCH (09:00)
[2018-11-02] MEDS ORDERED: PANTOPRAZOLE 40 MG TABLET PO SCH (09:00)
[2018-11-02] MEDS ORDERED: DILTIAZEM CD 180 MG CAPSULE PO SCH (09:00)
[2018-11-02] MEDS ORDERED: ISOSORBIDE MONONITRATE 30 MG TABLET PO SCH (09:00)
[2018-11-02] MEDS ORDERED: ASPIRIN EC 81 MG TABLET PO SCH (09:00)
[2018-11-02] MEDS ORDERED: ATORVASTATIN 20 MG TABLET PO SCH (09:00)
[2018-11-02] MEDS ORDERED: ISOSORBIDE MONONITRATE 60 MG TABLET PO SCH (11:00)
[2018-11-02] MEDS ORDERED: TAMSULOSIN 0.4 MG CAPSULE PO SCH (11:00)
[2018-11-02] MEDS ORDERED: CALCIUM ACETATE 667 MG CAPSULE PO SCH (11:00)
[2018-11-02] MEDS ORDERED: DOXAZOSIN 1 MG TABLET PO SCH (11:00)
[2018-11-02] MEDS: CALCIUM ACETATE 667 MG CAPSULE PO SCH ×2 (13:27→16:38)
[2018-11-02 16:01] VITALS: BP 143/47
[2018-11-02] MEDS ORDERED: CARVEDILOL 12.5 MG TABLET PO SCH (21:00)
== END 2018-11-02 17:44 | disposition home health service (06) ==
LOC: EDBD → EDUNIT# → N.EDINP 07:02 → N.ED 07:02 → N.EDINP 12:59 → N.2E 13:34
PROVIDERS: ADMIT Internal Medicine; ATTEND Internal Medicine

== ENCOUNTER 2018-11-04 13:30 | Inpatient (IN) ==
[2018-11-04] MEDS ORDERED: ALBUTEROL/IPRATROPIUM 3 ML NEB RESP TX STA (14:18)
[2018-11-04 16:15] LABS: Basophils # 0.1 10*3/uL (0.0-0.2); Basophils % 0.3 % (0.0-0.8); Eosinophils % 0.1 % (0.00-10.9); Hematocrit 29.2 VOL% (42.0-52.0); Hemoglobin 9.6 GM/DL (14.0-18.0); Immature Granulocytes Absolute 1.46 #; Lymphocytes # 0.6 10*3/uL (1.4-4.0); Lymphocytes % 3.3 % (21.2-54.2); Mean Corpuscular HGB Conc 32.9 GM/DL (32-36); Mean Corpuscular Volume 88.5 FL (87-102); Mean Platelet Volume 12.3 FL (9.6-12.0); Monocytes % 8.5 % (1.7-12.7); Neutrophils % 79.8 % (38.7-73.9); Platelet Count 136 T/CUMM (130-400); Red Cell Distribution Width 15.3 % (9.3-17.3); White Blood Count 18.2 T/CUMM (4-12)
[2018-11-04 16:27] LABS: INR 1.1; PT Patient Result 12.1 SECS; Partial Thromboplastin Time 29.9 SECS (0-40)
[2018-11-04] MEDS ORDERED: VANCOMYCIN INJ 1,000 MG in SODIUM CHLORIDE 0.9% 250 ML IV STA (16:32)
[2018-11-04 16:53] LABS: Alanine Aminotransferase 36 U/L (16-61); Albumin 2.2 G/DL (3.4-5.0); Alkaline Phosphatase 87 U/L (45-117); Aspartate Amino Transferase 89 U/L (0-37); Blood Urea Nitrogen 76 MG/DL (7-18); Glucose 319 MG/DL (74-106); Osmolality,Calculated 296.7 MOS/KG (273-304); Total Protein 6.9 G/DL (6.4-8.3)
[2018-11-04 16:57] LABS: Troponin I 0.292 NG/ML (0.00-0.045)
[2018-11-04 17:17] LABS: Band Neutrophils 1 % (0-10); Eosinophils 1 % (0-10); Helmet Cells Few; Lymphocytes 9 % (20-55); Segmented Neutrophils 83 % (50-85); Tear Drop Cells Few
[2018-11-04 17:18] LABS: Hypochromasia Slight; Microcytosis 1+; Platelet Estimate Adequate; Polychromasia Few; Total Cells Counted 100
[2018-11-04] MEDS ORDERED: ACETAMINOPHEN 325 MG TABLET PO PRN (19:11)
[2018-11-04] MEDS ORDERED: DEXTROSE 50% 25 GM/50 ML VIAL IV PRN (19:11)
[2018-11-04] MEDS ORDERED: GLUCAGON 1 MG VIAL IM PRN (19:11)
[2018-11-04] MEDS ORDERED: DOCUSATE SODIUM 100 MG CAPSULE PO PRN (19:11)
[2018-11-04] MEDS ORDERED: ONDANSETRON 4 MG/2 ML VIAL IV PRN (19:11)
[2018-11-04] MEDS ORDERED: BISACODYL 5 MG TABLET PO PRN (19:11)
[2018-11-04] MEDS ORDERED: LACTULOSE 20 GM/30 ML UDCUP PO PRN (19:11)
[2018-11-04] MEDS: ENOXAPARIN 30 MG/0.3 ML SYRINGE SUBCUT SCH (21:45)
[2018-11-04] MEDS ORDERED: CALCIUM ACETATE 667 MG CAPSULE PO SCH (22:13)
[2018-11-04] MEDS: TAMSULOSIN 0.4 MG CAPSULE PO SCH (23:07)
[2018-11-04] MEDS: DOXAZOSIN 1 MG TABLET PO SCH (23:07)
[2018-11-04] MEDS: CARVEDILOL 12.5 MG TABLET PO SCH (23:08)
[2018-11-05 06:11] LABS: Basophils # 0.1 10*3/uL (0.0-0.2); Basophils % 0.3 % (0.0-0.8); Eosinophils # 0.1 10*3/uL (0.0-0.87); Eosinophils % 0.4 % (0.00-10.9); Hemoglobin 8.8 GM/DL (14.0-18.0); Immature Granulocytes % 6.8 %; Immature Granulocytes Absolute 1.17 #; Lymphocytes # 1.1 10*3/uL (1.4-4.0); Lymphocytes % 6.3 % (21.2-54.2); Mean Corpuscular HGB Conc 32.6 GM/DL (32-36); Mean Corpuscular Volume 88.5 FL (87-102); Mean Platelet Volume 11.8 FL (9.6-12.0); Monocytes % 8.4 % (1.7-12.7); Neutrophils % 77.8 % (38.7-73.9); Platelet Count 138 T/CUMM (130-400); Red Blood Count 3.05 MC/CUMM (3.8-5.5); Red Cell Distribution Width 15.4 % (9.3-17.3); White Blood Count 17.2 T/CUMM (4-12)
[2018-11-05 06:41] LABS: Calcium 9.1 MG/DL (8.5-10.1); Osmolality,Calculated 304.2 MOS/KG (273-304); Total Protein 6.4 G/DL (6.4-8.3)
[2018-11-05 08:03] LABS: Band Neutrophils 4 % (0-10); Lymphocytes 7 % (20-55); Polychromasia Slight; Segmented Neutrophils 87 % (50-85); Total Cells Counted 100
[2018-11-05 08:04] LABS: Microcytosis Slight; Platelet Estimate Adequate
[2018-11-05] MEDS: DOXAZOSIN 1 MG TABLET PO SCH (08:46)
[2018-11-05] MEDS: CARVEDILOL 12.5 MG TABLET PO SCH (08:46)
[2018-11-05] MEDS: TAMSULOSIN 0.4 MG CAPSULE PO SCH (08:47)
[2018-11-05] MEDS: CALCIUM ACETATE 667 MG CAPSULE PO SCH ×2 (08:47→16:20)
[2018-11-05] MEDS: PANTOPRAZOLE 40 MG TABLET PO SCH (08:47)
[2018-11-05] MEDS: AZITHROMYCIN 250 MG TABLET PO SCH (08:47)
[2018-11-05] MEDS: ASPIRIN EC 81 MG TABLET PO SCH (08:47)
[2018-11-05] MEDS ORDERED: DILTIAZEM CD 180 MG CAPSULE PO SCH (09:00)
[2018-11-05] MEDS ORDERED: PANTOPRAZOLE 40 MG TABLET PO SCH (09:00)
[2018-11-05] MEDS: ISOSORBIDE MONONITRATE 60 MG TABLET PO SCH (11:19)
[2018-11-05] MEDS: INSULIN LISPRO 100 UNIT/ML SUBCUT SCH ×3 (13:19→20:39)
[2018-11-05] MEDS: cefTRIAXone 1,000 MG in SYRINGE 1 EACH IV SCH (16:56)
[2018-11-05] MEDS: CARVEDILOL 6.25 MG TABLET PO SCH ×3 (17:07→18:53)
[2018-11-05] MEDS: ENOXAPARIN 30 MG/0.3 ML SYRINGE SUBCUT SCH (21:08)
[2018-11-06] MEDS: DOXAZOSIN 1 MG TABLET PO SCH ×3 (01:04→22:12)
[2018-11-06] MEDS: TAMSULOSIN 0.4 MG CAPSULE PO SCH ×3 (01:05→22:12)
[2018-11-06] MEDS: ATORVASTATIN 20 MG TABLET PO SCH ×2 (01:05→22:12)
[2018-11-06 02:25] LABS: ABG Base Excess -0.9 MMOL/L (-2.5-2.5); ABG HCO3 23.7 MMOL/L (20-26); ABG Oxygen Saturation 96.4 % (95-100); ABG PH 7.427 (7.35-7.45); ABG PO2 84.4 MM HG (80-95); ABG TCO2 21.2 MMOL/L (23-27)
[2018-11-06 05:44] LABS: Basophils # 0.1 10*3/uL (0.0-0.2); Basophils % 0.4 % (0.0-0.8); Eosinophils # 0.1 10*3/uL (0.0-0.87); Eosinophils % 0.7 % (0.00-10.9); Hematocrit 27.2 VOL% (42.0-52.0); Hemoglobin 9.3 GM/DL (14.0-18.0); Immature Granulocytes % 3.9 %; Immature Granulocytes Absolute 0.81 #; Lymphocytes # 1.3 10*3/uL (1.4-4.0); Lymphocytes % 6.5 % (21.2-54.2); Mean Corpuscular HGB Conc 34.2 GM/DL (32-36); Mean Corpuscular Volume 86.1 FL (87-102); Mean Platelet Volume 12.2 FL (9.6-12.0); Monocytes % 6.6 % (1.7-12.7); Neutrophils % 81.9 % (38.7-73.9); Platelet Count 173 T/CUMM (130-400); Red Blood Count 3.16 MC/CUMM (3.8-5.5); Red Cell Distribution Width 15.2 % (9.3-17.3); White Blood Count 20.6 T/CUMM (4-12)
[2018-11-06 06:01] LABS: Calcium 9.5 MG/DL (8.5-10.1); Osmolality,Calculated 310.1 MOS/KG (273-304)
[2018-11-06 06:08] LABS: Eosinophils 3 % (0-10); Hypochromasia 1+; Lymphocytes 3 % (20-55); Platelet Estimate Adequate; Segmented Neutrophils 87 % (50-85); Total Cells Counted 100
[2018-11-06 06:09] LABS: Macrocytosis Slight; Polychromasia Slight
[2018-11-06] MEDS ORDERED: VANCOMYCIN INJ 2,000 MG in SODIUM CHLORIDE 0.9% 500 ML IV ONE (09:30)
[2018-11-06] MEDS ORDERED: VANCOMYCIN INJ 750 MG in SODIUM CHLORIDE 0.9% 250 ML IV PRN (09:30)
[2018-11-06] MEDS: INSULIN LISPRO 100 UNIT/ML SUBCUT SCH ×4 (09:32→21:15)
[2018-11-06] MEDS: CARVEDILOL 6.25 MG TABLET PO SCH ×2 (10:02→16:34)
[2018-11-06] MEDS: ASPIRIN EC 81 MG TABLET PO SCH (10:02)
[2018-11-06] MEDS: PANTOPRAZOLE 40 MG TABLET PO SCH (10:03)
[2018-11-06] MEDS: AZITHROMYCIN 250 MG TABLET PO SCH (10:03)
[2018-11-06] MEDS: ISOSORBIDE MONONITRATE 60 MG TABLET PO SCH (10:03)
[2018-11-06] MEDS: cefTRIAXone 1,000 MG in SYRINGE 1 EACH IV SCH (16:32)
[2018-11-06] MEDS: HEPARIN 5,000 UNIT/1 ML VIAL SUBCUT SCH (22:12)
[2018-11-07] MEDS ORDERED: TUBERCULIN SKIN TEST 0.1 ML SYRINGE INTRADERM ONE (09:28)
[2018-11-07] MEDS: CARVEDILOL 6.25 MG TABLET PO SCH ×2 (09:43→18:24)
[2018-11-07] MEDS: ASPIRIN EC 81 MG TABLET PO SCH (09:43)
[2018-11-07] MEDS: DOXAZOSIN 1 MG TABLET PO SCH ×2 (09:43→21:29)
[2018-11-07] MEDS: ISOSORBIDE MONONITRATE 60 MG TABLET PO SCH (09:43)
[2018-11-07] MEDS: INSULIN LISPRO 100 UNIT/ML SUBCUT SCH ×4 (09:43→21:29)
[2018-11-07] MEDS: PANTOPRAZOLE 40 MG TABLET PO SCH (09:43)
[2018-11-07] MEDS: HEPARIN 5,000 UNIT/1 ML VIAL SUBCUT SCH ×2 (09:43→21:30)
[2018-11-07] MEDS: TAMSULOSIN 0.4 MG CAPSULE PO SCH ×2 (09:43→21:29)
[2018-11-07] MEDS: AZITHROMYCIN 250 MG TABLET PO SCH (09:43)
[2018-11-07] MEDS ORDERED: ALBUMIN 25% 25 GM in PREMIX 1 EACH IV ONE (15:30)
[2018-11-07] MEDS ORDERED: VANCOMYCIN INJ 750 MG in SODIUM CHLORIDE 0.9% 250 ML IV ONE (17:00)
[2018-11-07] MEDS: cefTRIAXone 1,000 MG in SYRINGE 1 EACH IV SCH (18:24)
[2018-11-07] MEDS: ATORVASTATIN 20 MG TABLET PO SCH (21:33)
[2018-11-08 06:03] LABS: Basophils # 0.1 10*3/uL (0.0-0.2); Basophils % 0.5 % (0.0-0.8); Eosinophils # 0.7 10*3/uL (0.0-0.87); Eosinophils % 3.9 % (0.00-10.9); Hematocrit 27.4 VOL% (42.0-52.0); Hemoglobin 9.2 GM/DL (14.0-18.0); Immature Granulocytes % 7.3 %; Immature Granulocytes Absolute 1.24 #; Lymphocytes # 1.1 10*3/uL (1.4-4.0); Lymphocytes % 6.1 % (21.2-54.2); Mean Corpuscular HGB Conc 33.6 GM/DL (32-36); Mean Corpuscular Volume 87.8 FL (87-102); Mean Platelet Volume 11.1 FL (9.6-12.0); Monocytes % 5.5 % (1.7-12.7); Neutrophils % 76.7 % (38.7-73.9); Platelet Count 184 T/CUMM (130-400); Red Blood Count 3.12 MC/CUMM (3.8-5.5); Red Cell Distribution Width 15.9 % (9.3-17.3); White Blood Count 17.1 T/CUMM (4-12)
[2018-11-08 06:33] LABS: Albumin 1.9 G/DL (3.4-5.0); Bilirubin,Total 0.8 MG/DL (0.2-1.0); Calcium 8.4 MG/DL (8.5-10.1); Osmolality,Calculated 286.7 MOS/KG (273-304); Total Protein 7.2 G/DL (6.4-8.3)
[2018-11-08 06:53] LABS: Band Neutrophils 1 % (0-10); Lymphocytes 3 % (20-55); Metamyelocytes 1 %; Myelocytes 2 %; Segmented Neutrophils 87 % (50-85); Total Cells Counted 100
[2018-11-08 06:54] LABS: Anisocytosis 1+; Hypochromasia Slight; Microcytosis 1+; Platelet Estimate Normal; Polychromasia Slight
[2018-11-08] MEDS: PANTOPRAZOLE 40 MG TABLET PO SCH (08:29)
[2018-11-08] MEDS: DOXAZOSIN 1 MG TABLET PO SCH ×2 (08:29→21:19)
[2018-11-08] MEDS: TAMSULOSIN 0.4 MG CAPSULE PO SCH ×2 (08:29→21:19)
[2018-11-08] MEDS: ISOSORBIDE MONONITRATE 60 MG TABLET PO SCH (08:29)
[2018-11-08] MEDS: HEPARIN 5,000 UNIT/1 ML VIAL SUBCUT SCH ×2 (08:30→21:20)
[2018-11-08] MEDS: AZITHROMYCIN 250 MG TABLET PO SCH (08:30)
[2018-11-08] MEDS: ASPIRIN EC 81 MG TABLET PO SCH (08:30)
[2018-11-08] MEDS: CARVEDILOL 6.25 MG TABLET PO SCH ×2 (08:30→17:45)
[2018-11-08] MEDS: INSULIN LISPRO 100 UNIT/ML SUBCUT SCH ×4 (08:30→21:19)
[2018-11-08] MEDS ORDERED: LACTULOSE 20 GM/30 ML UDCUP PO ONE (09:38)
[2018-11-08] MEDS ORDERED: VANCOMYCIN INJ 750 MG in SODIUM CHLORIDE 0.9% 250 ML IV ONE (17:00)
[2018-11-08] MEDS: cefTRIAXone 1,000 MG in SYRINGE 1 EACH IV SCH (17:45)
[2018-11-08] MEDS: ATORVASTATIN 20 MG TABLET PO SCH (21:19)
[2018-11-08] MEDS: MENTHOL/ZINC OXIDE OINT 71 GM JAR TOP SCH (21:20)
[2018-11-09 05:14] LABS: Basophils # 0.1 10*3/uL (0.0-0.2); Basophils % 0.8 % (0.0-0.8); Eosinophils # 0.5 10*3/uL (0.0-0.87); Eosinophils % 3.5 % (0.00-10.9); Hematocrit 27.9 VOL% (42.0-52.0); Hemoglobin 9.1 GM/DL (14.0-18.0); Immature Granulocytes % 6.3 %; Immature Granulocytes Absolute 0.89 #; Lymphocytes # 0.8 10*3/uL (1.4-4.0); Lymphocytes % 5.4 % (21.2-54.2); Mean Corpuscular HGB Conc 32.6 GM/DL (32-36); Mean Corpuscular Volume 87.7 FL (87-102); Mean Platelet Volume 10.6 FL (9.6-12.0); Monocytes % 4.9 % (1.7-12.7); Neutrophils % 79.1 % (38.7-73.9); Platelet Count 196 T/CUMM (130-400); Red Blood Count 3.18 MC/CUMM (3.8-5.5); Red Cell Distribution Width 15.7 % (9.3-17.3); White Blood Count 14.2 T/CUMM (4-12)
[2018-11-09 05:37] LABS: Eosinophils 3 % (0-10); Hypochromasia 1+; Lymphocytes 3 % (20-55); Ovalocytes Slight; Platelet Estimate Adequate; Segmented Neutrophils 89 % (50-85); Total Cells Counted 100
[2018-11-09 05:38] LABS: Microcytosis 1+
[2018-11-09 05:44] LABS: Albumin 1.9 G/DL (3.4-5.0); Bilirubin,Total 0.8 MG/DL (0.2-1.0); Calcium 8.6 MG/DL (8.5-10.1); Osmolality,Calculated 290.1 MOS/KG (273-304); Total Protein 7.6 G/DL (6.4-8.3)
[2018-11-09] MEDS: PANTOPRAZOLE 40 MG TABLET PO SCH (09:06)
[2018-11-09] MEDS: ASPIRIN EC 81 MG TABLET PO SCH (09:06)
[2018-11-09] MEDS: HEPARIN 5,000 UNIT/1 ML VIAL SUBCUT SCH ×2 (09:06→20:55)
[2018-11-09] MEDS: AZITHROMYCIN 250 MG TABLET PO SCH (09:06)
[2018-11-09] MEDS: TAMSULOSIN 0.4 MG CAPSULE PO SCH ×2 (09:06→20:55)
[2018-11-09] MEDS: INSULIN LISPRO 100 UNIT/ML SUBCUT SCH ×5 (09:06→20:55)
[2018-11-09] MEDS: CARVEDILOL 6.25 MG TABLET PO SCH ×2 (09:06→17:29)
[2018-11-09] MEDS: DOXAZOSIN 1 MG TABLET PO SCH ×2 (09:06→20:55)
[2018-11-09] MEDS: MENTHOL/ZINC OXIDE OINT 71 GM JAR TOP SCH ×2 (09:06→20:56)
[2018-11-09] MEDS: ISOSORBIDE MONONITRATE 60 MG TABLET PO SCH (09:06)
[2018-11-09] MEDS: cefTRIAXone 1,000 MG in SYRINGE 1 EACH IV SCH (16:54)
[2018-11-09] MEDS ORDERED: VANCOMYCIN INJ 750 MG in SODIUM CHLORIDE 0.9% 250 ML IV ONE (17:00)
[2018-11-09] MEDS: ATORVASTATIN 20 MG TABLET PO SCH (20:55)
[2018-11-10 04:44] LABS: Basophils # 0.1 10*3/uL (0.0-0.2); Basophils % 0.7 % (0.0-0.8); Eosinophils # 0.4 10*3/uL (0.0-0.87); Eosinophils % 3.5 % (0.00-10.9); Hematocrit 29.1 VOL% (42.0-52.0); Hemoglobin 9.3 GM/DL (14.0-18.0); Immature Granulocytes % 6.5 %; Immature Granulocytes Absolute 0.77 #; Lymphocytes % 8.6 % (21.2-54.2); Mean Corpuscular Volume 88.7 FL (87-102); Mean Platelet Volume 10.3 FL (9.6-12.0); Neutrophils % 73.7 % (38.7-73.9); Platelet Count 196 T/CUMM (130-400); Red Blood Count 3.28 MC/CUMM (3.8-5.5); Red Cell Distribution Width 15.8 % (9.3-17.3); White Blood Count 11.8 T/CUMM (4-12)
[2018-11-10 05:14] LABS: Albumin 1.9 G/DL (3.4-5.0); Bilirubin,Total 1.2 MG/DL (0.2-1.0); Calcium 8.4 MG/DL (8.5-10.1); Eosinophils 3 % (0-10); Hypochromasia 1+; Lymphocytes 4 % (20-55); Microcytosis 1+; Osmolality,Calculated 281.1 MOS/KG (273-304); Ovalocytes Slight; Platelet Estimate Adequate; Segmented Neutrophils 89 % (50-85); Total Cells Counted 100; Total Protein 7.7 G/DL (6.4-8.3)
[2018-11-10] MEDS: AZITHROMYCIN 250 MG TABLET PO SCH (10:05)
[2018-11-10] MEDS: TAMSULOSIN 0.4 MG CAPSULE PO SCH (10:05)
[2018-11-10] MEDS: DOXAZOSIN 1 MG TABLET PO SCH (10:05)
[2018-11-10] MEDS: PANTOPRAZOLE 40 MG TABLET PO SCH (10:05)
[2018-11-10] MEDS: ISOSORBIDE MONONITRATE 60 MG TABLET PO SCH (10:05)
[2018-11-10] MEDS: CARVEDILOL 6.25 MG TABLET PO SCH (10:05)
[2018-11-10] MEDS: ASPIRIN EC 81 MG TABLET PO SCH (10:05)
[2018-11-10] MEDS: INSULIN LISPRO 100 UNIT/ML SUBCUT SCH ×2 (10:06→13:43)
[2018-11-10] MEDS: MENTHOL/ZINC OXIDE OINT 71 GM JAR TOP SCH (10:06)
[2018-11-10] MEDS: HEPARIN 5,000 UNIT/1 ML VIAL SUBCUT SCH (10:10)
[2018-11-10 12:25] VITALS: BP 168/74
== END 2018-11-10 14:05 | DRG 871 ==
LOC: EDUNIT# → EDBD → N.ED 13:30 → SUATTDRO 19:11 → N.EDINP 19:11 → N.5E 20:41
PROVIDERS: ADMIT Family Medicine; ATTEND Internal Medicine

== ENCOUNTER 2018-11-15 18:57 | Inpatient (IN) ==
[2018-11-15] MEDS ORDERED: MORPHINE 4 MG/1 ML VIAL IV PRN (20:30)
[2018-11-15] MEDS ORDERED: ACETAMINOPHEN 325 MG TABLET PO PRN (20:30)
[2018-11-15] MEDS ORDERED: LACTULOSE 20 GM/30 ML UDCUP PO PRN (20:30)
[2018-11-15] MEDS ORDERED: DEXTROSE 50% 25 GM/50 ML VIAL IV PRN (20:30)
[2018-11-15] MEDS ORDERED: ONDANSETRON 4 MG/2 ML VIAL IV PRN (20:30)
[2018-11-15] MEDS ORDERED: MAGNESIUM HYDROXIDE SUSP 30 ML UDCUP PO PRN (20:30)
[2018-11-15] MEDS ORDERED: GLUCAGON 1 MG VIAL IM PRN (20:30)
[2018-11-15] MEDS ORDERED: VANCOMYCIN 1,000 MG VIAL IV PRN (20:46)
[2018-11-15] MEDS ORDERED: CALCIUM ACETATE 667 MG CAPSULE PO SCH (21:00)
[2018-11-15 23:31] LABS: Basophils % 0.4 % (0.0-0.8); Eosinophils # 0.2 10*3/uL (0.0-0.87); Eosinophils % 2.4 % (0.00-10.9); Hematocrit 25.4 VOL% (42.0-52.0); Hemoglobin 8.3 GM/DL (14.0-18.0); Immature Granulocytes % 0.7 %; Immature Granulocytes Absolute 0.06 #; Lymphocytes # 1.2 10*3/uL (1.4-4.0); Lymphocytes % 15.5 % (21.2-54.2); Mean Corpuscular HGB Conc 32.7 GM/DL (32-36); Mean Corpuscular Volume 89.1 FL (87-102); Mean Platelet Volume 10.4 FL (9.6-12.0); Monocytes % 11.3 % (1.7-12.7); Neutrophils % 69.7 % (38.7-73.9); Platelet Count 174 T/CUMM (130-400); Red Blood Count 2.85 MC/CUMM (3.8-5.5); Red Cell Distribution Width 15.5 % (9.3-17.3)
[2018-11-15] MEDS ORDERED: VANCOMYCIN INJ 750 MG in SODIUM CHLORIDE 0.9% 250 ML IV PRN (23:52)
[2018-11-15] MEDS: DOXAZOSIN 1 MG TABLET PO SCH (23:56)
[2018-11-15] MEDS: TAMSULOSIN 0.4 MG CAPSULE PO SCH (23:56)
[2018-11-15] MEDS: DOCUSATE SODIUM 100 MG CAPSULE PO SCH (23:56)
[2018-11-15] MEDS: INSULIN REGULAR 100 UNIT/ML SUBCUT SCH (23:56)
[2018-11-16 00:05] LABS: Bilirubin,Total 0.6 MG/DL (0.2-1.0); Osmolality,Calculated 286.1 MOS/KG (273-304); Total Protein 7.8 G/DL (6.4-8.3)
[2018-11-16] MEDS ORDERED: MAGNESIUM SULF RIDER 2 GM in PREMIX 1 EACH IV ONE (00:55)
[2018-11-16] MEDS: ALBUTEROL/IPRATROPIUM 3 ML NEB RESP TX SCH ×4 (02:19→18:15)
[2018-11-16 06:08] LABS: Basophils % 0.5 % (0.0-0.8); Eosinophils # 0.3 10*3/uL (0.0-0.87); Eosinophils % 3.8 % (0.00-10.9); Hematocrit 24.8 VOL% (42.0-52.0); Hemoglobin 8.1 GM/DL (14.0-18.0); Immature Granulocytes % 0.7 %; Immature Granulocytes Absolute 0.05 #; Lymphocytes # 1.1 10*3/uL (1.4-4.0); Lymphocytes % 15.4 % (21.2-54.2); Mean Corpuscular HGB Conc 32.7 GM/DL (32-36); Mean Corpuscular Volume 89.2 FL (87-102); Mean Platelet Volume 11.2 FL (9.6-12.0); Monocytes % 13.8 % (1.7-12.7); Neutrophils % 65.8 % (38.7-73.9); Platelet Count 198 T/CUMM (130-400); Red Blood Count 2.78 MC/CUMM (3.8-5.5); Red Cell Distribution Width 15.5 % (9.3-17.3); White Blood Count 7.4 T/CUMM (4-12)
[2018-11-16] MEDS ORDERED: CARVEDILOL 6.25 MG TABLET PO SCH (08:00)
[2018-11-16] MEDS: CALCIUM ACETATE 667 MG CAPSULE PO SCH ×3 (09:33→18:07)
[2018-11-16] MEDS: DOCUSATE SODIUM 100 MG CAPSULE PO SCH ×2 (09:34→21:22)
[2018-11-16] MEDS: INSULIN REGULAR 100 UNIT/ML SUBCUT SCH ×4 (10:14→21:22)
[2018-11-16] MEDS: DOXAZOSIN 1 MG TABLET PO SCH ×2 (10:15→11:16)
[2018-11-16] MEDS: CARVEDILOL 12.5 MG TABLET PO SCH ×3 (10:16→18:07)
[2018-11-16] MEDS: DILTIAZEM CD 180 MG CAPSULE PO SCH ×2 (10:16→11:16)
[2018-11-16] MEDS: PANTOPRAZOLE 40 MG TABLET PO SCH (10:16)
[2018-11-16] MEDS: TAMSULOSIN 0.4 MG CAPSULE PO SCH ×3 (10:16→21:01)
[2018-11-16] MEDS: ISOSORBIDE MONONITRATE 60 MG TABLET PO SCH (10:51)
[2018-11-16] MEDS: ASPIRIN EC 81 MG TABLET PO SCH (11:16)
[2018-11-16] MEDS ORDERED: DILTIAZEM 60 MG TABLET PO ONE (11:48)
[2018-11-16] MEDS ORDERED: FAMOTIDINE 20 MG TABLET PO ONE (11:49)
[2018-11-16] MEDS ORDERED: CARVEDILOL 12.5 MG TABLET PO ONE (11:49)
[2018-11-16] MEDS ORDERED: PROPOFOL 200 MG/20 ML VIAL IV ONE (15:54)
[2018-11-16] MEDS ORDERED: KETAMINE 500 MG/10 ML VIAL ONE (15:55)
[2018-11-16] MEDS ORDERED: MIDAZOLAM 2 MG/2 ML VIAL ONE (15:55)
[2018-11-16] MEDS ORDERED: SODIUM CHLORIDE 0.9% 1,000 ML IV PRN (17:42)
[2018-11-16] MEDS ORDERED: ALBUTEROL 2.5 MG/3 ML NEB RESP TX PRN (17:58)
[2018-11-16] MEDS: PIPERACILLIN/TAZOBACTAM 3,375 MG in SODIUM CHLORIDE 0.9% 100 ML IV SCH (18:28)
[2018-11-16] MEDS: methylPREDNISolone SOD SUC 40 MG/1 ML VIAL IV SCH (18:33)
[2018-11-16] MEDS: INSULIN GLARGINE 100 UNIT/ML SUBCUT SCH (21:22)
[2018-11-17] MEDS: ALBUTEROL/IPRATROPIUM 3 ML NEB RESP TX SCH ×4 (00:38→19:46)
[2018-11-17 05:17] LABS: Basophils % 0.3 % (0.0-0.8); Eosinophils % 0.2 % (0.00-10.9); Hematocrit 23.7 VOL% (42.0-52.0); Hemoglobin 7.5 GM/DL (14.0-18.0); Immature Granulocytes % 0.9 %; Immature Granulocytes Absolute 0.12 #; Lymphocytes # 0.8 10*3/uL (1.4-4.0); Lymphocytes % 5.9 % (21.2-54.2); Mean Corpuscular HGB Conc 31.6 GM/DL (32-36); Mean Corpuscular Volume 92.2 FL (87-102); Mean Platelet Volume 10.3 FL (9.6-12.0); Monocytes % 4.6 % (1.7-12.7); Neutrophils % 88.1 % (38.7-73.9); Platelet Count 183 T/CUMM (130-400); Red Blood Count 2.57 MC/CUMM (3.8-5.5); Red Cell Distribution Width 15.7 % (9.3-17.3); White Blood Count 12.8 T/CUMM (4-12)
[2018-11-17] MEDS: methylPREDNISolone SOD SUC 40 MG/1 ML VIAL IV SCH ×2 (05:40→17:47)
[2018-11-17 05:43] LABS: Hypochromasia 2+; Ovalocytes Slight; Platelet Estimate Adequate
[2018-11-17] MEDS: PIPERACILLIN/TAZOBACTAM 3,375 MG in SODIUM CHLORIDE 0.9% 100 ML IV SCH ×3 (05:46→21:35)
[2018-11-17 05:57] LABS: Calcium 8.3 MG/DL (8.5-10.1)
[2018-11-17] MEDS: INSULIN REGULAR 100 UNIT/ML SUBCUT SCH ×4 (11:28→20:47)
[2018-11-17] MEDS: ASPIRIN EC 81 MG TABLET PO SCH (14:12)
[2018-11-17] MEDS: CARVEDILOL 12.5 MG TABLET PO SCH ×2 (14:12→18:00)
[2018-11-17] MEDS: CALCIUM ACETATE 667 MG CAPSULE PO SCH ×2 (14:12→18:00)
[2018-11-17] MEDS: DILTIAZEM CD 180 MG CAPSULE PO SCH (14:12)
[2018-11-17] MEDS: ISOSORBIDE MONONITRATE 60 MG TABLET PO SCH (14:13)
[2018-11-17] MEDS: SODIUM HYPOCHLORITE 0.25% IRRIG 473 ML BOTTLE TOP SCH (14:13)
[2018-11-17] MEDS: DOCUSATE SODIUM 100 MG CAPSULE PO SCH ×2 (14:13→20:47)
[2018-11-17] MEDS: PANTOPRAZOLE 40 MG TABLET PO SCH (14:13)
[2018-11-17] MEDS ORDERED: VANCOMYCIN INJ 750 MG in SODIUM CHLORIDE 0.9% 250 ML IV ONE (17:00)
[2018-11-17] MEDS: INSULIN GLARGINE 100 UNIT/ML SUBCUT SCH (20:47)
[2018-11-17] MEDS ORDERED: INSULIN REGULAR 100 UNIT/ML SUBCUT ONE (23:10)
[2018-11-18] MEDS: ALBUTEROL/IPRATROPIUM 3 ML NEB RESP TX SCH ×4 (00:50→20:05)
[2018-11-18 01:31] LABS: Basophils % 0.2 % (0.0-0.8); Eosinophils % 0.1 % (0.00-10.9); Hematocrit 24.5 VOL% (42.0-52.0); Hemoglobin 7.9 GM/DL (14.0-18.0); Immature Granulocytes % 0.8 %; Immature Granulocytes Absolute 0.08 #; Lymphocytes # 0.8 10*3/uL (1.4-4.0); Lymphocytes % 7.8 % (21.2-54.2); Mean Corpuscular HGB Conc 32.2 GM/DL (32-36); Mean Corpuscular Volume 88.8 FL (87-102); Mean Platelet Volume 10.7 FL (9.6-12.0); Monocytes % 7.3 % (1.7-12.7); Neutrophils % 83.8 % (38.7-73.9); Platelet Count 191 T/CUMM (130-400); Red Blood Count 2.76 MC/CUMM (3.8-5.5); Red Cell Distribution Width 15.7 % (9.3-17.3); White Blood Count 10.2 T/CUMM (4-12)
[2018-11-18 01:32] LABS: Calcium 7.7 MG/DL (8.5-10.1); Osmolality,Calculated 287.8 MOS/KG (273-304)
[2018-11-18 01:35] LABS: Albumin 1.7 G/DL (3.4-5.0); Bilirubin,Total 0.4 MG/DL (0.2-1.0); Calcium 7.8 MG/DL (8.5-10.1); Osmolality,Calculated 289.7 MOS/KG (273-304); Total Protein 7.3 G/DL (6.4-8.3)
[2018-11-18] MEDS: methylPREDNISolone SOD SUC 40 MG/1 ML VIAL IV SCH ×2 (06:30→17:14)
[2018-11-18] MEDS: INSULIN REGULAR 100 UNIT/ML SUBCUT SCH ×4 (10:18→21:19)
[2018-11-18] MEDS: CALCIUM ACETATE 667 MG CAPSULE PO SCH ×3 (10:19→17:14)
[2018-11-18] MEDS: ASPIRIN EC 81 MG TABLET PO SCH (10:19)
[2018-11-18] MEDS: DILTIAZEM CD 180 MG CAPSULE PO SCH (10:19)
[2018-11-18] MEDS: CARVEDILOL 12.5 MG TABLET PO SCH ×2 (10:19→17:14)
[2018-11-18] MEDS: SODIUM HYPOCHLORITE 0.25% IRRIG 473 ML BOTTLE TOP SCH (10:20)
[2018-11-18] MEDS: DOCUSATE SODIUM 100 MG CAPSULE PO SCH ×2 (10:20→21:20)
[2018-11-18] MEDS: ISOSORBIDE MONONITRATE 60 MG TABLET PO SCH (10:20)
[2018-11-18] MEDS: PIPERACILLIN/TAZOBACTAM 3,375 MG in SODIUM CHLORIDE 0.9% 100 ML IV SCH ×3 (10:23→22:40)
[2018-11-18] MEDS: PANTOPRAZOLE 40 MG TABLET PO SCH (10:23)
[2018-11-18 17:13] LABS: Hematocrit 26.8 VOL% (42.0-52.0); Hemoglobin 8.7 GM/DL (14.0-18.0)
[2018-11-18] MEDS: INSULIN GLARGINE 100 UNIT/ML SUBCUT SCH (21:19)
[2018-11-19] MEDS: ALBUTEROL/IPRATROPIUM 3 ML NEB RESP TX SCH ×4 (00:01→19:08)
[2018-11-19] MEDS: methylPREDNISolone SOD SUC 40 MG/1 ML VIAL IV SCH ×2 (06:00→18:33)
[2018-11-19 06:02] LABS: Hematocrit 25.3 VOL% (42.0-52.0); Hemoglobin 8.2 GM/DL (14.0-18.0)
[2018-11-19] MEDS: ASPIRIN EC 81 MG TABLET PO SCH (09:16)
[2018-11-19] MEDS: CARVEDILOL 12.5 MG TABLET PO SCH ×2 (09:16→16:32)
[2018-11-19] MEDS: DILTIAZEM CD 180 MG CAPSULE PO SCH (09:16)
[2018-11-19] MEDS: INSULIN REGULAR 100 UNIT/ML SUBCUT SCH ×4 (09:16→20:48)
[2018-11-19] MEDS: CALCIUM ACETATE 667 MG CAPSULE PO SCH ×3 (09:17→16:37)
[2018-11-19] MEDS: PANTOPRAZOLE 40 MG TABLET PO SCH (09:17)
[2018-11-19] MEDS: SODIUM HYPOCHLORITE 0.25% IRRIG 473 ML BOTTLE TOP SCH (09:17)
[2018-11-19] MEDS: DOCUSATE SODIUM 100 MG CAPSULE PO SCH ×2 (09:17→20:48)
[2018-11-19] MEDS: ISOSORBIDE MONONITRATE 60 MG TABLET PO SCH (09:20)
[2018-11-19] MEDS: PIPERACILLIN/TAZOBACTAM 3,375 MG in SODIUM CHLORIDE 0.9% 100 ML IV SCH (11:31)
[2018-11-19] MEDS: INSULIN GLARGINE 100 UNIT/ML SUBCUT SCH (20:48)
[2018-11-20] MEDS: ALBUTEROL/IPRATROPIUM 3 ML NEB RESP TX SCH ×4 (00:45→20:47)
[2018-11-20] MEDS: PIPERACILLIN/TAZOBACTAM 3,375 MG in SODIUM CHLORIDE 0.9% 100 ML IV SCH ×3 (01:42→14:15)
[2018-11-20] MEDS: methylPREDNISolone SOD SUC 40 MG/1 ML VIAL IV SCH ×3 (05:30→18:35)
[2018-11-20] MEDS ORDERED: SODIUM CHLORIDE 0.9% 1,000 ML IV PRN (08:08)
[2018-11-20] MEDS: INSULIN REGULAR 100 UNIT/ML SUBCUT SCH ×4 (08:18→21:57)
[2018-11-20] MEDS: ISOSORBIDE MONONITRATE 60 MG TABLET PO SCH (14:07)
[2018-11-20] MEDS: ASPIRIN EC 81 MG TABLET PO SCH (14:07)
[2018-11-20] MEDS: DOCUSATE SODIUM 100 MG CAPSULE PO SCH ×2 (14:07→20:44)
[2018-11-20] MEDS: CALCIUM ACETATE 667 MG CAPSULE PO SCH ×3 (14:07→18:12)
[2018-11-20] MEDS: PANTOPRAZOLE 40 MG TABLET PO SCH (14:08)
[2018-11-20] MEDS: DILTIAZEM CD 180 MG CAPSULE PO SCH (14:08)
[2018-11-20] MEDS: CARVEDILOL 12.5 MG TABLET PO SCH ×2 (14:08→18:12)
[2018-11-20] MEDS: SODIUM HYPOCHLORITE 0.25% IRRIG 473 ML BOTTLE TOP SCH (14:09)
[2018-11-20] MEDS: VANCOMYCIN INJ 750 MG in SODIUM CHLORIDE 0.9% 250 ML IV ONE ×2 (18:12→18:35)
[2018-11-20] MEDS: traMADol 50 MG TABLET PO PRN (20:44)
[2018-11-20] MEDS: INSULIN GLARGINE 100 UNIT/ML SUBCUT SCH (22:23)
[2018-11-21] MEDS: ALBUTEROL/IPRATROPIUM 3 ML NEB RESP TX SCH ×4 (02:00→19:39)
[2018-11-21] MEDS: PIPERACILLIN/TAZOBACTAM 3,375 MG in SODIUM CHLORIDE 0.9% 100 ML IV SCH (02:15)
[2018-11-21 05:32] LABS: Basophils % 0.6 % (0.0-0.8); Eosinophils # 0.8 10*3/uL (0.0-0.87); Eosinophils % 11.4 % (0.00-10.9); Hematocrit 28.4 VOL% (42.0-52.0); Hemoglobin 9.2 GM/DL (14.0-18.0); Immature Granulocytes % 2.1 %; Immature Granulocytes Absolute 0.14 #; Lymphocytes # 1.7 10*3/uL (1.4-4.0); Lymphocytes % 25.4 % (21.2-54.2); Mean Corpuscular HGB Conc 32.4 GM/DL (32-36); Mean Corpuscular Volume 88.5 FL (87-102); Mean Platelet Volume 10.5 FL (9.6-12.0); Monocytes % 13.3 % (1.7-12.7); Neutrophils % 47.2 % (38.7-73.9); Platelet Count 140 T/CUMM (130-400); Red Blood Count 3.21 MC/CUMM (3.8-5.5); Red Cell Distribution Width 15.4 % (9.3-17.3); White Blood Count 6.7 T/CUMM (4-12)
[2018-11-21 05:58] LABS: Eosinophils 13 % (0-10); Lymphocytes 21 % (20-55); Platelet Estimate Normal; Segmented Neutrophils 60 % (50-85); Total Cells Counted 100
[2018-11-21 05:59] LABS: Hypochromasia 1+
[2018-11-21] MEDS: methylPREDNISolone SOD SUC 40 MG/1 ML VIAL IV SCH ×2 (06:09→18:11)
[2018-11-21] MEDS: INSULIN REGULAR 100 UNIT/ML SUBCUT SCH ×4 (07:52→21:22)
[2018-11-21] MEDS: DILTIAZEM CD 180 MG CAPSULE PO SCH (08:18)
[2018-11-21] MEDS: ISOSORBIDE MONONITRATE 60 MG TABLET PO SCH (08:18)
[2018-11-21] MEDS: PANTOPRAZOLE 40 MG TABLET PO SCH (08:18)
[2018-11-21] MEDS: DOCUSATE SODIUM 100 MG CAPSULE PO SCH ×2 (08:18→21:22)
[2018-11-21] MEDS: CARVEDILOL 12.5 MG TABLET PO SCH ×2 (08:19→16:50)
[2018-11-21] MEDS: CALCIUM ACETATE 667 MG CAPSULE PO SCH ×3 (08:19→16:50)
[2018-11-21] MEDS: ASPIRIN EC 81 MG TABLET PO SCH (08:19)
[2018-11-21] MEDS: SODIUM HYPOCHLORITE 0.25% IRRIG 473 ML BOTTLE TOP SCH (08:22)
[2018-11-21] MEDS: INSULIN GLARGINE 100 UNIT/ML SUBCUT SCH (21:22)
[2018-11-22] MEDS: ALBUTEROL/IPRATROPIUM 3 ML NEB RESP TX SCH ×4 (01:03→19:19)
[2018-11-22 04:41] LABS: Basophils % 0.2 % (0.0-0.8); Eosinophils % 0.4 % (0.00-10.9); Hematocrit 28.6 VOL% (42.0-52.0); Hemoglobin 9.2 GM/DL (14.0-18.0); Immature Granulocytes % 1.7 %; Immature Granulocytes Absolute 0.09 #; Lymphocytes # 0.8 10*3/uL (1.4-4.0); Mean Corpuscular HGB Conc 32.2 GM/DL (32-36); Mean Corpuscular Volume 89.7 FL (87-102); Mean Platelet Volume 11.1 FL (9.6-12.0); Monocytes % 3.5 % (1.7-12.7); Neutrophils % 78.2 % (38.7-73.9); Platelet Count 129 T/CUMM (130-400); Red Blood Count 3.19 MC/CUMM (3.8-5.5); Red Cell Distribution Width 15.9 % (9.3-17.3); White Blood Count 5.2 T/CUMM (4-12)
[2018-11-22 05:18] LABS: Bilirubin,Total 0.6 MG/DL (0.2-1.0); Calcium 7.6 MG/DL (8.5-10.1); Osmolality,Calculated 295.4 MOS/KG (273-304); Total Protein 7.6 G/DL (6.4-8.3)
[2018-11-22] MEDS: methylPREDNISolone SOD SUC 40 MG/1 ML VIAL IV SCH ×2 (06:44→17:37)
[2018-11-22] MEDS: INSULIN REGULAR 100 UNIT/ML SUBCUT SCH ×4 (07:51→21:00)
[2018-11-22] MEDS: DOCUSATE SODIUM 100 MG CAPSULE PO SCH ×2 (09:01→21:00)
[2018-11-22] MEDS: DILTIAZEM CD 180 MG CAPSULE PO SCH (09:01)
[2018-11-22] MEDS: ISOSORBIDE MONONITRATE 60 MG TABLET PO SCH (09:02)
[2018-11-22] MEDS: ASPIRIN EC 81 MG TABLET PO SCH (09:02)
[2018-11-22] MEDS: traMADol 50 MG TABLET PO PRN (09:02)
[2018-11-22] MEDS: PANTOPRAZOLE 40 MG TABLET PO SCH (09:02)
[2018-11-22] MEDS: CALCIUM ACETATE 667 MG CAPSULE PO SCH ×3 (09:02→16:46)
[2018-11-22] MEDS: SODIUM HYPOCHLORITE 0.25% IRRIG 473 ML BOTTLE TOP SCH (09:02)
[2018-11-22] MEDS: CARVEDILOL 12.5 MG TABLET PO SCH ×2 (09:02→16:46)
[2018-11-22] MEDS ORDERED: INSULIN GLARGINE 100 UNIT/ML SUBCUT SCH (19:00)
[2018-11-23] MEDS: ALBUTEROL/IPRATROPIUM 3 ML NEB RESP TX SCH ×4 (01:07→19:25)
[2018-11-23] MEDS: methylPREDNISolone SOD SUC 40 MG/1 ML VIAL IV SCH ×2 (05:25→19:30)
[2018-11-23 05:29] LABS: Basophils % 0.2 % (0.0-0.8); Hematocrit 26.6 VOL% (42.0-52.0); Hemoglobin 8.6 GM/DL (14.0-18.0); Immature Granulocytes % 0.9 %; Immature Granulocytes Absolute 0.08 #; Lymphocytes # 0.9 10*3/uL (1.4-4.0); Lymphocytes % 10.4 % (21.2-54.2); Mean Corpuscular HGB Conc 32.3 GM/DL (32-36); Mean Corpuscular Volume 90.2 FL (87-102); Mean Platelet Volume 10.5 FL (9.6-12.0); Monocytes % 6.7 % (1.7-12.7); Neutrophils % 81.8 % (38.7-73.9); Platelet Count 125 T/CUMM (130-400); Red Blood Count 2.95 MC/CUMM (3.8-5.5); Red Cell Distribution Width 15.8 % (9.3-17.3); White Blood Count 8.7 T/CUMM (4-12)
[2018-11-23 06:10] LABS: Albumin 2.1 G/DL (3.4-5.0); Bilirubin,Total 0.4 MG/DL (0.2-1.0); Total Protein 7.4 G/DL (6.4-8.3)
[2018-11-23] MEDS: INSULIN REGULAR 100 UNIT/ML SUBCUT SCH ×4 (07:40→21:42)
[2018-11-23] MEDS: ASPIRIN EC 81 MG TABLET PO SCH (09:27)
[2018-11-23] MEDS: SODIUM HYPOCHLORITE 0.25% IRRIG 473 ML BOTTLE TOP SCH (09:27)
[2018-11-23] MEDS: PANTOPRAZOLE 40 MG TABLET PO SCH (09:27)
[2018-11-23] MEDS: CALCIUM ACETATE 667 MG CAPSULE PO SCH ×3 (09:27→17:19)
[2018-11-23] MEDS: DOCUSATE SODIUM 100 MG CAPSULE PO SCH ×2 (09:27→21:45)
[2018-11-23] MEDS: DILTIAZEM CD 180 MG CAPSULE PO SCH (09:27)
[2018-11-23] MEDS: ISOSORBIDE MONONITRATE 60 MG TABLET PO SCH (09:27)
[2018-11-23] MEDS: CARVEDILOL 12.5 MG TABLET PO SCH ×2 (09:27→17:19)
[2018-11-23] MEDS ORDERED: INSULIN GLARGINE 100 UNIT/ML SUBCUT SCH ×2 (10:53→21:18)
[2018-11-24] MEDS: ALBUTEROL/IPRATROPIUM 3 ML NEB RESP TX SCH ×3 (00:21→13:30)
[2018-11-24 06:21] LABS: Basophils % 0.2 % (0.0-0.8); Eosinophils % 0.2 % (0.00-10.9); Hematocrit 27.6 VOL% (42.0-52.0); Immature Granulocytes % 1.1 %; Immature Granulocytes Absolute 0.07 #; Lymphocytes # 0.7 10*3/uL (1.4-4.0); Lymphocytes % 11.3 % (21.2-54.2); Mean Corpuscular HGB Conc 32.6 GM/DL (32-36); Mean Corpuscular Volume 90.8 FL (87-102); Mean Platelet Volume 10.2 FL (9.6-12.0); Monocytes % 5.4 % (1.7-12.7); Neutrophils % 81.8 % (38.7-73.9); Platelet Count 122 T/CUMM (130-400); Red Blood Count 3.04 MC/CUMM (3.8-5.5); Red Cell Distribution Width 15.9 % (9.3-17.3); White Blood Count 6.5 T/CUMM (4-12)
[2018-11-24 06:39] LABS: Osmolality,Calculated 296.2 MOS/KG (273-304)
[2018-11-24] MEDS: DILTIAZEM CD 180 MG CAPSULE PO SCH (08:25)
[2018-11-24] MEDS: PANTOPRAZOLE 40 MG TABLET PO SCH (08:26)
[2018-11-24] MEDS: ISOSORBIDE MONONITRATE 60 MG TABLET PO SCH (08:26)
[2018-11-24] MEDS: ASPIRIN EC 81 MG TABLET PO SCH (08:26)
[2018-11-24] MEDS: DOCUSATE SODIUM 100 MG CAPSULE PO SCH (08:26)
[2018-11-24] MEDS: CARVEDILOL 12.5 MG TABLET PO SCH (08:26)
[2018-11-24] MEDS: CALCIUM ACETATE 667 MG CAPSULE PO SCH ×2 (08:27→12:08)
[2018-11-24] MEDS: INSULIN REGULAR 100 UNIT/ML SUBCUT SCH ×2 (08:28→12:07)
[2018-11-24 08:29] VITALS: BP 165/66
[2018-11-24] MEDS: SODIUM HYPOCHLORITE 0.25% IRRIG 473 ML BOTTLE TOP SCH (08:29)
[2018-11-24] MEDS ORDERED: DOXAZOSIN 1 MG TABLET PO SCH (09:00)
[2018-11-24] MEDS ORDERED: INSULIN GLARGINE 100 UNIT/ML SUBCUT SCH (09:00)
== END 2018-11-24 14:42 | DRG 623 ==
LOC: N.3E 22:30
PROVIDERS: ADMIT Internal Medicine; ATTEND Internal Medicine

== ENCOUNTER 2018-12-05 18:50 | Inpatient (IN) ==
[2018-12-05 20:20] LABS: Basophils % 0.7 % (0.0-0.8); Eosinophils # 0.9 10*3/uL (0.0-0.87); Eosinophils % 15.4 % (0.00-10.9); Hematocrit 26.2 VOL% (42.0-52.0); Immature Granulocytes % 0.4 %; Immature Granulocytes Absolute 0.02 #; Lymphocytes # 1.7 10*3/uL (1.4-4.0); Lymphocytes % 31.5 % (21.2-54.2); Mean Corpuscular HGB Conc 30.5 GM/DL (32-36); Mean Corpuscular Volume 94.9 FL (87-102); Mean Platelet Volume 10.1 FL (9.6-12.0); Monocytes % 12.3 % (1.7-12.7); Neutrophils % 39.7 % (38.7-73.9); Platelet Count 140 T/CUMM (130-400); Red Blood Count 2.76 MC/CUMM (3.8-5.5); Red Cell Distribution Width 16.9 % (9.3-17.3); White Blood Count 5.5 T/CUMM (4-12)
[2018-12-05 20:29] LABS: INR 1.1; PT Patient Result 11.6 SECS (9.6-12.2)
[2018-12-05 20:52] LABS: Albumin 2.1 G/DL (3.4-5.0); Bilirubin,Total 0.6 MG/DL (0.2-1.0); Calcium 8.3 MG/DL (8.5-10.1); Total Protein 6.9 G/DL (6.4-8.3)
[2018-12-05] MEDS ORDERED: FUROSEMIDE 40 MG/4 ML VIAL IV STA (20:52)
[2018-12-05 21:05] LABS: Apearance,Urine CLOUDY (Clear); Bilirubin,Urine Negative (Negative); Blood, Urine Large mg/dL (Negative); Glucose,Urine (UA) 150 mg/dL (Negative); Ketones,Urine 20 mg/dL (Negative); Nitrite,Urine Negative (Negative); Protein,Urine >=500 MG/DL; RBC,Urine 112264 /HPF (0-4); Urine Color Red (Yellow); Urine Urobilinogen < 2.0 EU/DL (0.2-1.0)
[2018-12-05] MEDS ORDERED: VANCOMYCIN INJ 1,000 MG in SODIUM CHLORIDE 0.9% 250 ML IV STA (21:18)
[2018-12-05 21:25] LABS: Eosinophils 13 % (0-10); Lymphocytes 31 % (20-55); Segmented Neutrophils 49 % (50-85); Total Cells Counted 100
[2018-12-05 21:26] LABS: Hypochromasia 2+; Macrocytosis 1+; Platelet Estimate Normal
[2018-12-05 21:27] LABS: Polychromasia Few; Reactive Lymphocytes 1+
[2018-12-05] MEDS ORDERED: GLUCAGON 1 MG VIAL IM PRN (23:53)
[2018-12-05] MEDS ORDERED: SODIUM CHLORIDE 0.9% 1,000 ML IV SCH (23:53)
[2018-12-05] MEDS ORDERED: ONDANSETRON 4 MG/2 ML VIAL IV PRN (23:53)
[2018-12-05] MEDS ORDERED: ACETAMINOPHEN 325 MG TABLET PO PRN (23:53)
[2018-12-05] MEDS ORDERED: DEXTROSE 50% 25 GM/50 ML VIAL IV PRN (23:53)
[2018-12-06] MEDS: INSULIN REGULAR 100 UNIT/ML SUBCUT SCH ×4 (02:14→17:09)
[2018-12-06] MEDS: CARVEDILOL 12.5 MG TABLET PO SCH ×3 (02:14→21:10)
[2018-12-06] MEDS: CLINDAMYCIN INJ 600 MG in PREMIX 1 EACH IV SCH ×2 (02:44→16:44)
[2018-12-06 04:43] LABS: Basophils % 0.4 % (0.0-0.8); Eosinophils % 12.1 % (0.00-10.9); Hematocrit 25.8 VOL% (42.0-52.0); Immature Granulocytes % 0.5 %; Immature Granulocytes Absolute 0.04 #; Lymphocytes # 1.6 10*3/uL (1.4-4.0); Lymphocytes % 20.3 % (21.2-54.2); Mean Corpuscular Volume 95.2 FL (87-102); Monocytes % 10.3 % (1.7-12.7); Neutrophils % 56.4 % (38.7-73.9); Platelet Count 154 T/CUMM (130-400); Red Blood Count 2.71 MC/CUMM (3.8-5.5); Red Cell Distribution Width 16.9 % (9.3-17.3)
[2018-12-06 05:05] LABS: Eosinophils 14 % (0-10); Lymphocytes 20 % (20-55); Segmented Neutrophils 58 % (50-85); Total Cells Counted 100
[2018-12-06 05:06] LABS: Hypochromasia 1+; Macrocytosis Slight; Platelet Estimate Adequate
[2018-12-06 05:40] LABS: Osmolality,Calculated 295.1 MOS/KG (273-304); Total Protein 6.8 G/DL (6.4-8.3)
[2018-12-06] MEDS: DOCUSATE SODIUM 100 MG CAPSULE PO SCH ×3 (10:53→21:10)
[2018-12-06] MEDS: PANTOPRAZOLE 40 MG TABLET PO SCH (10:54)
[2018-12-06] MEDS ORDERED: SODIUM CHLORIDE 0.9% 1,000 ML IV PRN (11:17)
[2018-12-06] MEDS ORDERED: LACTULOSE 20 GM/30 ML UDCUP PO PRN (11:21)
[2018-12-06] MEDS ORDERED: MAGNESIUM HYDROXIDE SUSP 30 ML UDCUP PO PRN (11:21)
[2018-12-06] MEDS: CALCIUM ACETATE 667 MG CAPSULE PO SCH ×2 (13:52→17:08)
[2018-12-06] MEDS: ALBUTEROL/IPRATROPIUM 3 ML NEB RESP TX SCH ×2 (14:15→19:43)
[2018-12-06] MEDS ORDERED: CALCIUM ACETATE 667 MG CAPSULE PO SCH (15:00)
[2018-12-06] MEDS: ASPIRIN EC 81 MG TABLET PO SCH (17:01)
[2018-12-06] MEDS: DILTIAZEM CD 180 MG CAPSULE PO SCH (17:07)
[2018-12-06] MEDS: INSULIN GLARGINE 100 UNIT/ML SUBCUT SCH (17:08)
[2018-12-06] MEDS: ISOSORBIDE MONONITRATE 60 MG TABLET PO SCH (17:08)
[2018-12-06] MEDS ORDERED: HALOPERIDOL 5 MG/ML AMP IV PRN ×2 (17:26→17:27)
[2018-12-06] MEDS: DIVALPROEX 500 MG TABLET PO SCH (21:10)
[2018-12-07] MEDS: INSULIN REGULAR 100 UNIT/ML SUBCUT SCH ×5 (00:25→17:21)
[2018-12-07] MEDS: CLINDAMYCIN INJ 600 MG in PREMIX 1 EACH IV SCH ×3 (00:33→17:48)
[2018-12-07] MEDS: ALBUTEROL/IPRATROPIUM 3 ML NEB RESP TX SCH ×4 (00:41→19:55)
[2018-12-07 05:52] LABS: Basophils # 0.1 10*3/uL (0.0-0.2); Basophils % 0.7 % (0.0-0.8); Eosinophils # 1.6 10*3/uL (0.0-0.87); Eosinophils % 22.6 % (0.00-10.9); Immature Granulocytes % 0.4 %; Immature Granulocytes Absolute 0.03 #; Lymphocytes % 29.4 % (21.2-54.2); Mean Corpuscular HGB Conc 30.3 GM/DL (32-36); Mean Platelet Volume 10.2 FL (9.6-12.0); Monocytes % 9.2 % (1.7-12.7); Neutrophils % 37.7 % (38.7-73.9); Platelet Count 137 T/CUMM (130-400); Red Blood Count 3.51 MC/CUMM (3.8-5.5); Red Cell Distribution Width 18.6 % (9.3-17.3); White Blood Count 6.9 T/CUMM (4-12)
[2018-12-07 06:15] LABS: Eosinophils 22 % (0-10); Hypochromasia 1+; Lymphocytes 29 % (20-55); Macrocytosis Slight; Ovalocytes Slight; Platelet Estimate Normal; Segmented Neutrophils 38 % (50-85); Total Cells Counted 100
[2018-12-07 06:16] LABS: Calcium 8.2 MG/DL (8.5-10.1); Osmolality,Calculated 291.3 MOS/KG (273-304)
[2018-12-07] MEDS: DILTIAZEM CD 180 MG CAPSULE PO SCH (08:49)
[2018-12-07] MEDS: CALCIUM ACETATE 667 MG CAPSULE PO SCH ×3 (08:49→16:49)
[2018-12-07] MEDS: DOCUSATE SODIUM 100 MG CAPSULE PO SCH ×2 (08:49→21:13)
[2018-12-07] MEDS: LACTULOSE 20 GM/30 ML UDCUP PO SCH (08:50)
[2018-12-07] MEDS: DOXAZOSIN 1 MG TABLET PO SCH (08:50)
[2018-12-07] MEDS: ATORVASTATIN 20 MG TABLET PO SCH (08:50)
[2018-12-07] MEDS: DIVALPROEX 500 MG TABLET PO SCH ×2 (08:50→21:13)
[2018-12-07] MEDS: ISOSORBIDE MONONITRATE 60 MG TABLET PO SCH (08:50)
[2018-12-07] MEDS: PANTOPRAZOLE 40 MG TABLET PO SCH (08:50)
[2018-12-07] MEDS: ASPIRIN EC 81 MG TABLET PO SCH (08:50)
[2018-12-07] MEDS: INSULIN GLARGINE 100 UNIT/ML SUBCUT SCH ×2 (09:40→16:47)
[2018-12-07] MEDS: CARVEDILOL 12.5 MG TABLET PO SCH ×2 (09:55→21:13)
[2018-12-07] MEDS: SODIUM HYPOCHLORITE 0.25% IRRIG 473 ML BOTTLE TOP SCH (13:24)
[2018-12-08] MEDS: INSULIN REGULAR 100 UNIT/ML SUBCUT SCH ×3 (00:22→13:28)
[2018-12-08] MEDS: ALBUTEROL/IPRATROPIUM 3 ML NEB RESP TX SCH ×2 (01:07→07:40)
[2018-12-08] MEDS: CALCIUM ACETATE 667 MG CAPSULE PO SCH ×2 (09:27→12:58)
[2018-12-08] MEDS: ASPIRIN EC 81 MG TABLET PO SCH (12:56)
[2018-12-08] MEDS: DOXAZOSIN 1 MG TABLET PO SCH (12:56)
[2018-12-08] MEDS: ISOSORBIDE MONONITRATE 60 MG TABLET PO SCH (12:56)
[2018-12-08] MEDS: CARVEDILOL 12.5 MG TABLET PO SCH (12:57)
[2018-12-08] MEDS: PANTOPRAZOLE 40 MG TABLET PO SCH (12:57)
[2018-12-08] MEDS: DILTIAZEM CD 180 MG CAPSULE PO SCH (12:57)
[2018-12-08] MEDS: ATORVASTATIN 20 MG TABLET PO SCH (12:57)
[2018-12-08] MEDS: DIVALPROEX 500 MG TABLET PO SCH (12:58)
[2018-12-08] MEDS: DOCUSATE SODIUM 100 MG CAPSULE PO SCH (12:58)
[2018-12-08] MEDS: LACTULOSE 20 GM/30 ML UDCUP PO SCH (12:58)
[2018-12-08] MEDS: SODIUM HYPOCHLORITE 0.25% IRRIG 473 ML BOTTLE TOP SCH (13:00)
[2018-12-08] MEDS: INSULIN GLARGINE 100 UNIT/ML SUBCUT SCH (13:00)
[2018-12-08 16:46] VITALS: BP 191/62
== END 2018-12-08 15:51 | disposition home or self-care (01) | DRG 70 ==
LOC: EDBD → EDUNIT# → N.ED 18:50 → N.EDINP 18:50 → N.5E 23:10
PROVIDERS: ADMIT Internal Medicine; ATTEND Internal Medicine

== ENCOUNTER 2019-01-14 05:58 | Inpatient (IN) ==
[2019-01-14] MEDS ORDERED: MORPHINE 4 MG/1 ML VIAL ONE (06:03)
[2019-01-14] MEDS ORDERED: MORPHINE 4 MG/1 ML VIAL IV STA (06:06)
[2019-01-14] MEDS ORDERED: DILTIAZEM 50 MG/10 ML VIAL IV STA (06:18)
[2019-01-14 06:24] LABS: Basophils % 0.8 % (0.0-0.8); Eosinophils # 0.1 10*3/uL (0.0-0.87); Eosinophils % 4.6 % (0.00-10.9); Hematocrit 39.6 VOL% (42.0-52.0); Hemoglobin 12.2 GM/DL (14.0-18.0); Immature Granulocytes % 1.1 %; Immature Granulocytes Absolute 0.03 #; Lymphocytes # 0.4 10*3/uL (1.4-4.0); Lymphocytes % 15.3 % (21.2-54.2); Mean Corpuscular HGB Conc 30.8 GM/DL (32-36); Mean Corpuscular Volume 93.8 FL (87-102); Mean Platelet Volume 10.9 FL (9.6-12.0); Monocytes % 0.8 % (1.7-12.7); Neutrophils % 77.4 % (38.7-73.9); Platelet Count 89 T/CUMM (130-400); Red Blood Count 4.22 MC/CUMM (3.8-5.5); Red Cell Distribution Width 17.2 % (9.3-17.3); White Blood Count 2.6 T/CUMM (4-12)
[2019-01-14 06:39] LABS: Calcium 8.6 MG/DL (8.5-10.1); Osmolality,Calculated 284.7 MOS/KG (273-304)
[2019-01-14 06:41] LABS: ABG Base Excess 2.1 MMOL/L (-2.5-2.5); ABG HCO3 26.2 MMOL/L (20-26); ABG Oxygen Saturation 94.5 % (95-100); ABG PH 7.453 (7.35-7.45); ABG PO2 69.5 MM HG (80-95); ABG TCO2 23.2 MMOL/L (23-27)
[2019-01-14] MEDS ORDERED: VANCOMYCIN INJ 1,000 MG in SODIUM CHLORIDE 0.9% 250 ML IV STA (06:51)
[2019-01-14] MEDS ORDERED: cefTRIAXone 1,000 MG in SODIUM CHLORIDE 0.9% 100 ML IV STA (06:51)
[2019-01-14] MEDS: ALBUTEROL 2.5 MG/3 ML NEB RESP TX SCH (06:57)
[2019-01-14] MEDS ORDERED: ACETAMINOPHEN 325 MG TABLET PO PRN (06:58)
[2019-01-14] MEDS ORDERED: dilTIAZem Drip 125 MG/125 ML PREMIX IV SCH (07:00)
[2019-01-14 07:08] LABS: Band Neutrophils 1 % (0-10); Eosinophils 6 % (0-10); Hypochromasia Slight; Lymphocytes 21 % (20-55); Segmented Neutrophils 70 % (50-85); Total Cells Counted 100
[2019-01-14 07:09] LABS: Anisocytosis Slight; Microcytosis 1+; Platelet Estimate Decreased; Polychromasia Slight
[2019-01-14 07:10] LABS: Schistocytes Slight
[2019-01-14] MEDS ORDERED: GLUCAGON 1 MG VIAL IM PRN (07:43)
[2019-01-14] MEDS ORDERED: MAGNESIUM HYDROXIDE SUSP 30 ML UDCUP PO PRN (07:43)
[2019-01-14 07:52] LABS: Troponin I 0.326 NG/ML (0.00-0.045)
[2019-01-14] MEDS ORDERED: CARVEDILOL 12.5 MG TABLET PO SCH (08:00)
[2019-01-14] MEDS ORDERED: NOREPINEPHRINE 8 MG in SODIUM CHLORIDE 0.9% 242 ML IV PRN (08:30)
[2019-01-14] MEDS ORDERED: ALBUTEROL/IPRATROPIUM 3 ML NEB RESP TX SCH ×2 (09:00→15:00)
[2019-01-14] MEDS: INSULIN GLARGINE 100 UNIT/ML SUBCUT SCH ×2 (09:03→16:38)
[2019-01-14] MEDS: LACTULOSE 20 GM/30 ML UDCUP PO SCH (09:40)
[2019-01-14] MEDS: DIVALPROEX 500 MG TABLET PO SCH ×2 (09:40→20:16)
[2019-01-14] MEDS: CALCIUM ACETATE 667 MG CAPSULE PO SCH ×3 (09:40→16:57)
[2019-01-14] MEDS: ASPIRIN EC 81 MG TABLET PO SCH (09:40)
[2019-01-14] MEDS: PANTOPRAZOLE 40 MG TABLET PO SCH (09:53)
[2019-01-14] MEDS: DOCUSATE SODIUM 100 MG CAPSULE PO SCH ×2 (09:53→20:16)
[2019-01-14] MEDS ORDERED: AMIODARONE INJ 450 MG in DEXTROSE 5% 241 ML IV SCH (10:30)
[2019-01-14 10:47] LABS: CKMB % 3.9 %
[2019-01-14] MEDS: METOPROLOL TARTRATE 25 MG TABLET PO SCH ×3 (11:24→20:17)
[2019-01-14] MEDS: LEVALBUTEROL 1.25 MG/3 ML NEB RESP TX SCH ×2 (11:25→20:32)
[2019-01-14] MEDS ORDERED: ALBUTEROL/IPRATROPIUM 3 ML NEB RESP TX PRN ×2 (12:06→17:44)
[2019-01-14 13:42] LABS: CKMB % 3.7 %
[2019-01-14 13:46] LABS: Troponin I 15.3 NG/ML (0.00-0.045)
[2019-01-14] MEDS: AMIODARONE INJ 450 MG in DEXTROSE 5% 241 ML IV SCH ×2 (16:37→20:14)
[2019-01-14 17:03] LABS: CKMB % 3.4 %
[2019-01-14] MEDS: INSULIN LISPRO 100 UNIT/ML SUBCUT SCH ×2 (18:00→23:10)
[2019-01-14] MEDS: ATORVASTATIN 20 MG TABLET PO SCH (20:16)
[2019-01-15 03:25] LABS: Basophils % 0.4 % (0.0-0.8); Eosinophils # 0.2 10*3/uL (0.0-0.87); Eosinophils % 2.4 % (0.00-10.9); Hematocrit 32.3 VOL% (42.0-52.0); Hemoglobin 9.8 GM/DL (14.0-18.0); Immature Granulocytes % 0.4 %; Immature Granulocytes Absolute 0.04 #; Lymphocytes # 0.9 10*3/uL (1.4-4.0); Lymphocytes % 10.2 % (21.2-54.2); Mean Corpuscular HGB Conc 30.3 GM/DL (32-36); Mean Platelet Volume 11.1 FL (9.6-12.0); Monocytes % 8.2 % (1.7-12.7); Neutrophils % 78.4 % (38.7-73.9); Platelet Count 96 T/CUMM (130-400); Red Cell Distribution Width 17.4 % (9.3-17.3); White Blood Count 8.9 T/CUMM (4-12)
[2019-01-15 03:41] LABS: Risk Ratio 5.37; VLDL CHOLESTEROL 24.8 MG/DL
[2019-01-15 04:08] LABS: Albumin 1.9 G/DL (3.4-5.0); Bilirubin,Total 0.5 MG/DL (0.2-1.0); Calcium 8.1 MG/DL (8.5-10.1); Osmolality,Calculated 284.8 MOS/KG (273-304); Total Protein 6.2 G/DL (6.4-8.3)
[2019-01-15 04:38] LABS: Hypochromasia 1+; Platelet Estimate Decreased
[2019-01-15] MEDS: INSULIN LISPRO 100 UNIT/ML SUBCUT SCH ×3 (05:32→18:25)
[2019-01-15] MEDS: ISOSORBIDE MONONITRATE 60 MG TABLET PO SCH (06:29)
[2019-01-15] MEDS: LEVALBUTEROL 1.25 MG/3 ML NEB RESP TX SCH ×2 (07:39→21:23)
[2019-01-15] MEDS: CALCIUM ACETATE 667 MG CAPSULE PO SCH ×3 (08:28→17:10)
[2019-01-15] MEDS: ASPIRIN EC 81 MG TABLET PO SCH (08:28)
[2019-01-15] MEDS: PANTOPRAZOLE 40 MG TABLET PO SCH (08:29)
[2019-01-15] MEDS: DIVALPROEX 500 MG TABLET PO SCH ×2 (08:29→21:07)
[2019-01-15] MEDS: METOPROLOL TARTRATE 25 MG TABLET PO SCH ×3 (08:29→21:07)
[2019-01-15] MEDS: DOCUSATE SODIUM 100 MG CAPSULE PO SCH ×2 (08:29→21:07)
[2019-01-15] MEDS: LACTULOSE 20 GM/30 ML UDCUP PO SCH (08:31)
[2019-01-15] MEDS: AMIODARONE 200 MG TABLET PO SCH ×2 (08:33→21:07)
[2019-01-15] MEDS: INSULIN GLARGINE 100 UNIT/ML SUBCUT SCH ×2 (08:34→17:11)
[2019-01-15] MEDS: cefTRIAXone 1,000 MG in SYRINGE 1 EACH IV SCH (08:38)
[2019-01-15] MEDS: AZITHROMYCIN INJ 500 MG in SODIUM CHLORIDE 0.9% 250 ML IV SCH (08:45)
[2019-01-15] MEDS: ONDANSETRON 4 MG/2 ML VIAL IV PRN (09:56)
[2019-01-15] MEDS: ENOXAPARIN 30 MG/0.3 ML SYRINGE SUBCUT SCH (11:07)
[2019-01-15] MEDS: ATORVASTATIN 20 MG TABLET PO SCH (21:08)
[2019-01-15] MEDS: MORPHINE 4 MG/1 ML VIAL IV PRN (22:34)
[2019-01-15] MEDS ORDERED: AMIODARONE INJ 150 MG in DEXTROSE 5% 100 ML IV ONE (23:07)
[2019-01-15] MEDS ORDERED: AMIODARONE 150 MG/3 ML VIAL ONE (23:12)
[2019-01-15] MEDS ORDERED: AMIODARONE INJ 450 MG in DEXTROSE 5% 241 ML IV SCH (23:30)
[2019-01-16] MEDS: DEXTROSE 10% 250 ML BAG IV PRN ×3 (00:55→18:07)
[2019-01-16] MEDS: INSULIN LISPRO 100 UNIT/ML SUBCUT SCH ×4 (00:56→18:03)
[2019-01-16 04:22] LABS: Basophils % 0.1 % (0.0-0.8); Eosinophils # 0.2 10*3/uL (0.0-0.87); Eosinophils % 3.3 % (0.00-10.9); Hematocrit 29.9 VOL% (42.0-52.0); Immature Granulocytes % 0.7 %; Immature Granulocytes Absolute 0.05 #; Lymphocytes # 1.3 10*3/uL (1.4-4.0); Lymphocytes % 18.8 % (21.2-54.2); Mean Corpuscular HGB Conc 30.1 GM/DL (32-36); Mean Corpuscular Volume 94.6 FL (87-102); Mean Platelet Volume 11.8 FL (9.6-12.0); Monocytes % 13.4 % (1.7-12.7); Neutrophils % 63.7 % (38.7-73.9); Platelet Count 102 T/CUMM (130-400); Red Blood Count 3.16 MC/CUMM (3.8-5.5); Red Cell Distribution Width 17.2 % (9.3-17.3); White Blood Count 6.9 T/CUMM (4-12)
[2019-01-16 04:59] LABS: Albumin 2.1 G/DL (3.4-5.0); Bilirubin,Total 0.5 MG/DL (0.2-1.0); Calcium 8.2 MG/DL (8.5-10.1); Total Protein 6.4 G/DL (6.4-8.3)
[2019-01-16] MEDS ORDERED: AMIODARONE INJ 450 MG in DEXTROSE 5% 241 ML IV SCH (06:00)
[2019-01-16] MEDS: ISOSORBIDE MONONITRATE 60 MG TABLET PO SCH (06:24)
[2019-01-16] MEDS: LEVALBUTEROL 1.25 MG/3 ML NEB RESP TX SCH ×2 (07:24→20:12)
[2019-01-16] MEDS: INSULIN GLARGINE 100 UNIT/ML SUBCUT SCH ×2 (08:42→18:03)
[2019-01-16] MEDS: CALCIUM ACETATE 667 MG CAPSULE PO SCH ×3 (08:55→17:39)
[2019-01-16] MEDS: DOCUSATE SODIUM 100 MG CAPSULE PO SCH ×2 (08:55→20:21)
[2019-01-16] MEDS: ASPIRIN EC 81 MG TABLET PO SCH (08:55)
[2019-01-16] MEDS: DIVALPROEX 500 MG TABLET PO SCH ×2 (08:55→20:22)
[2019-01-16] MEDS: AMIODARONE 200 MG TABLET PO SCH ×2 (08:55→20:22)
[2019-01-16] MEDS: LACTULOSE 20 GM/30 ML UDCUP PO SCH (08:56)
[2019-01-16] MEDS: METOPROLOL TARTRATE 50 MG TABLET PO SCH ×2 (08:56→20:22)
[2019-01-16] MEDS: PANTOPRAZOLE 40 MG TABLET PO SCH (08:56)
[2019-01-16] MEDS: cefTRIAXone 1,000 MG in SYRINGE 1 EACH IV SCH (08:59)
[2019-01-16] MEDS: ENOXAPARIN 30 MG/0.3 ML SYRINGE SUBCUT SCH (11:13)
[2019-01-16] MEDS: AZITHROMYCIN INJ 500 MG in SODIUM CHLORIDE 0.9% 250 ML IV SCH (12:18)
[2019-01-16] MEDS: ONDANSETRON 4 MG/2 ML VIAL IV PRN (13:01)
[2019-01-16] MEDS ORDERED: EPOETIN ALFA 2,000 UNIT/1 ML VIAL IV PRN (14:02)
[2019-01-16] MEDS: ATORVASTATIN 20 MG TABLET PO SCH (20:22)
[2019-01-17] MEDS: INSULIN LISPRO 100 UNIT/ML SUBCUT SCH ×5 (01:02→20:11)
[2019-01-17] MEDS: DEXTROSE 10% 1,000 ML IV SCH (02:34)
[2019-01-17 03:00] LABS: Basophils % 0.3 % (0.0-0.8); Eosinophils # 0.8 10*3/uL (0.0-0.87); Eosinophils % 10.6 % (0.00-10.9); Hematocrit 27.1 VOL% (42.0-52.0); Hemoglobin 8.4 GM/DL (14.0-18.0); Immature Granulocytes % 0.8 %; Immature Granulocytes Absolute 0.06 #; Lymphocytes % 26.9 % (21.2-54.2); Mean Corpuscular Volume 94.1 FL (87-102); Mean Platelet Volume 11.8 FL (9.6-12.0); Monocytes % 14.3 % (1.7-12.7); Neutrophils % 47.1 % (38.7-73.9); Platelet Count 97 T/CUMM (130-400); Red Blood Count 2.88 MC/CUMM (3.8-5.5); White Blood Count 7.3 T/CUMM (4-12)
[2019-01-17 03:21] LABS: Alanine Aminotransferase 25 U/L (16-61); Albumin 1.8 G/DL (3.4-5.0); Alkaline Phosphatase 92 U/L (45-117); Aspartate Amino Transferase 38 U/L (0-37); Bilirubin,Total < 0.39 MG/DL (0.2-1.0); Blood Urea Nitrogen 30 MG/DL (7-18); Calcium 7.3 MG/DL (8.5-10.1); Estimated Glom Filtration Rate 10 ML/MIN; Glucose 63 MG/DL (74-106); Total Protein 5.7 G/DL (6.4-8.3)
[2019-01-17 04:26] LABS: Anisocytosis Slight; Eosinophils 12 % (0-10); Hypochromasia Slight; Lymphocytes 25 % (20-55); Macrocytosis Slight; Platelet Estimate Decreased; Segmented Neutrophils 52 % (50-85); Total Cells Counted 100
[2019-01-17 04:27] LABS: Ovalocytes Few; Polychromasia Slight
[2019-01-17] MEDS: ISOSORBIDE MONONITRATE 60 MG TABLET PO SCH (06:00)
[2019-01-17] MEDS: LEVALBUTEROL 1.25 MG/3 ML NEB RESP TX SCH ×2 (07:35→19:50)
[2019-01-17] MEDS: DIVALPROEX 500 MG TABLET PO SCH ×2 (09:22→21:20)
[2019-01-17] MEDS: LACTULOSE 20 GM/30 ML UDCUP PO SCH (09:22)
[2019-01-17] MEDS: ASPIRIN EC 81 MG TABLET PO SCH (09:22)
[2019-01-17] MEDS: METOPROLOL TARTRATE 50 MG TABLET PO SCH ×2 (09:22→21:19)
[2019-01-17] MEDS: DOCUSATE SODIUM 100 MG CAPSULE PO SCH ×2 (09:22→21:20)
[2019-01-17] MEDS: AMIODARONE 200 MG TABLET PO SCH ×2 (09:22→21:19)
[2019-01-17] MEDS: PANTOPRAZOLE 40 MG TABLET PO SCH (09:22)
[2019-01-17] MEDS: cefTRIAXone 1,000 MG in SYRINGE 1 EACH IV SCH (09:23)
[2019-01-17] MEDS: CALCIUM ACETATE 667 MG CAPSULE PO SCH ×3 (09:23→18:58)
[2019-01-17] MEDS: INSULIN GLARGINE 100 UNIT/ML SUBCUT SCH ×2 (11:21→18:29)
[2019-01-17] MEDS: ENOXAPARIN 30 MG/0.3 ML SYRINGE SUBCUT SCH (11:44)
[2019-01-17] MEDS: ATORVASTATIN 20 MG TABLET PO SCH (21:20)
[2019-01-17] MEDS: hydrALAZINE 20 MG/1 ML VIAL IV PRN (22:49)
[2019-01-18] MEDS: INSULIN LISPRO 100 UNIT/ML SUBCUT SCH ×6 (00:40→20:37)
[2019-01-18] MEDS: ALBUMIN 25% 25 GM in PREMIX 1 EACH IV SCH ×3 (03:11→18:07)
[2019-01-18 04:46] LABS: Basophils # 0.1 10*3/uL (0.0-0.2); Basophils % 0.6 % (0.0-0.8); Eosinophils # 0.9 10*3/uL (0.0-0.87); Eosinophils % 11.8 % (0.00-10.9); Hematocrit 32.5 VOL% (42.0-52.0); Immature Granulocytes % 2.6 %; Immature Granulocytes Absolute 0.21 #; Lymphocytes # 2.1 10*3/uL (1.4-4.0); Lymphocytes % 26.7 % (21.2-54.2); Mean Corpuscular HGB Conc 30.8 GM/DL (32-36); Mean Corpuscular Volume 93.9 FL (87-102); Mean Platelet Volume 10.6 FL (9.6-12.0); Monocytes % 11.7 % (1.7-12.7); Neutrophils % 46.6 % (38.7-73.9); Platelet Count 89 T/CUMM (130-400); Red Blood Count 3.46 MC/CUMM (3.8-5.5); Red Cell Distribution Width 17.2 % (9.3-17.3); White Blood Count 7.9 T/CUMM (4-12)
[2019-01-18 05:04] LABS: Albumin 2.7 G/DL (3.4-5.0); Bilirubin,Total 0.7 MG/DL (0.2-1.0); Calcium 8.6 MG/DL (8.5-10.1); Osmolality,Calculated 274.7 MOS/KG (273-304); Total Protein 7.3 G/DL (6.4-8.3)
[2019-01-18 05:14] LABS: Band Neutrophils 1 % (0-10); Eosinophils 8 % (0-10); Lymphocytes 26 % (20-55); Metamyelocytes 1 %; Nucleated Red Blood Cells 1 (0-5); Platelet Estimate Decreased; Segmented Neutrophils 55 % (50-85); Total Cells Counted 100
[2019-01-18] MEDS: DEXTROSE 10% 1,000 ML IV SCH (05:16)
[2019-01-18] MEDS: hydrALAZINE 20 MG/1 ML VIAL IV PRN ×4 (05:20→14:40)
[2019-01-18] MEDS: ISOSORBIDE MONONITRATE 60 MG TABLET PO SCH (06:32)
[2019-01-18] MEDS: LEVALBUTEROL 1.25 MG/3 ML NEB RESP TX SCH ×2 (07:23→19:15)
[2019-01-18] MEDS: PANTOPRAZOLE 40 MG TABLET PO SCH (09:55)
[2019-01-18] MEDS: CALCIUM ACETATE 667 MG CAPSULE PO SCH ×3 (09:55→17:11)
[2019-01-18] MEDS: DIVALPROEX 500 MG TABLET PO SCH ×2 (09:55→20:33)
[2019-01-18] MEDS: ASPIRIN EC 81 MG TABLET PO SCH (09:55)
[2019-01-18] MEDS: LACTULOSE 20 GM/30 ML UDCUP PO SCH (09:55)
[2019-01-18] MEDS: amLODIPine 5 MG TABLET PO SCH (09:56)
[2019-01-18] MEDS: cefTRIAXone 1,000 MG in SYRINGE 1 EACH IV SCH (09:56)
[2019-01-18] MEDS: DOCUSATE SODIUM 100 MG CAPSULE PO SCH ×2 (09:56→20:33)
[2019-01-18] MEDS: ENOXAPARIN 30 MG/0.3 ML SYRINGE SUBCUT SCH (09:56)
[2019-01-18] MEDS: METOPROLOL TARTRATE 50 MG TABLET PO SCH (09:56)
[2019-01-18] MEDS: AMIODARONE 200 MG TABLET PO SCH (10:14)
[2019-01-18] MEDS: INSULIN GLARGINE 100 UNIT/ML SUBCUT SCH ×2 (10:30→17:08)
[2019-01-18] MEDS ORDERED: AMIODARONE 200 MG TABLET PO ONE (17:05)
[2019-01-18] MEDS: MORPHINE 4 MG/1 ML VIAL IV PRN (18:06)
[2019-01-18] MEDS ORDERED: METOPROLOL TARTRATE 100 MG TABLET PO ONE (19:01)
[2019-01-18] MEDS: ATORVASTATIN 20 MG TABLET PO SCH (20:33)
[2019-01-19] MEDS: INSULIN LISPRO 100 UNIT/ML SUBCUT SCH ×6 (00:16→20:58)
[2019-01-19] MEDS: ALBUMIN 25% 25 GM in PREMIX 1 EACH IV SCH ×3 (03:09→18:34)
[2019-01-19] MEDS: DEXTROSE 10% 1,000 ML IV SCH (03:09)
[2019-01-19] MEDS: hydrALAZINE 20 MG/1 ML VIAL IV PRN (04:43)
[2019-01-19] MEDS: ISOSORBIDE MONONITRATE 60 MG TABLET PO SCH (06:00)
[2019-01-19 07:54] LABS: Basophils % 0.5 % (0.0-0.8); Eosinophils # 0.6 10*3/uL (0.0-0.87); Eosinophils % 9.6 % (0.00-10.9); Hematocrit 27.4 VOL% (42.0-52.0); Hemoglobin 8.3 GM/DL (14.0-18.0); Immature Granulocytes % 5.9 %; Immature Granulocytes Absolute 0.35 #; Lymphocytes # 1.7 10*3/uL (1.4-4.0); Lymphocytes % 28.9 % (21.2-54.2); Mean Corpuscular HGB Conc 30.3 GM/DL (32-36); Mean Corpuscular Volume 94.2 FL (87-102); Mean Platelet Volume 11.8 FL (9.6-12.0); Monocytes % 15.4 % (1.7-12.7); Neutrophils % 39.7 % (38.7-73.9); Platelet Count 82 T/CUMM (130-400); Red Blood Count 2.91 MC/CUMM (3.8-5.5); Red Cell Distribution Width 17.4 % (9.3-17.3); White Blood Count 5.9 T/CUMM (4-12)
[2019-01-19 08:17] LABS: Eosinophils 8 % (0-10); Hypochromasia 1+; Lymphocytes 39 % (20-55); Ovalocytes Slight; Platelet Estimate Decreased; Segmented Neutrophils 45 % (50-85); Total Cells Counted 100
[2019-01-19] MEDS: DOCUSATE SODIUM 100 MG CAPSULE PO SCH ×2 (08:23→20:55)
[2019-01-19] MEDS: INSULIN GLARGINE 100 UNIT/ML SUBCUT SCH ×2 (08:23→17:00)
[2019-01-19] MEDS: LACTULOSE 20 GM/30 ML UDCUP PO SCH (08:23)
[2019-01-19] MEDS: CALCIUM ACETATE 667 MG CAPSULE PO SCH ×3 (08:23→17:43)
[2019-01-19] MEDS: ASPIRIN EC 81 MG TABLET PO SCH (08:23)
[2019-01-19] MEDS: AMIODARONE 200 MG TABLET PO SCH (08:23)
[2019-01-19] MEDS: PANTOPRAZOLE 40 MG TABLET PO SCH (08:23)
[2019-01-19] MEDS: DIVALPROEX 500 MG TABLET PO SCH ×2 (08:23→20:55)
[2019-01-19] MEDS: LEVALBUTEROL 1.25 MG/3 ML NEB RESP TX SCH ×2 (08:32→19:35)
[2019-01-19] MEDS: METOPROLOL TARTRATE 100 MG TABLET PO SCH ×2 (14:25→20:57)
[2019-01-19] MEDS: cefTRIAXone 1,000 MG in SYRINGE 1 EACH IV SCH (15:29)
[2019-01-19] MEDS: amLODIPine 5 MG TABLET PO SCH (15:31)
[2019-01-19] MEDS: DOXAZOSIN 1 MG TABLET PO SCH (15:31)
[2019-01-19] MEDS: ENOXAPARIN 30 MG/0.3 ML SYRINGE SUBCUT SCH (15:31)
[2019-01-19] MEDS: ATORVASTATIN 20 MG TABLET PO SCH (20:55)
[2019-01-20] MEDS: DEXTROSE 10% 250 ML BAG IV PRN (00:08)
[2019-01-20] MEDS: INSULIN LISPRO 100 UNIT/ML SUBCUT SCH ×4 (02:41→12:56)
[2019-01-20] MEDS: ALBUMIN 25% 25 GM in PREMIX 1 EACH IV SCH ×2 (04:18→12:56)
[2019-01-20 05:10] LABS: Basophils # 0.1 10*3/uL (0.0-0.2); Basophils % 0.7 % (0.0-0.8); Eosinophils # 0.8 10*3/uL (0.0-0.87); Eosinophils % 11.9 % (0.00-10.9); Hematocrit 28.9 VOL% (42.0-52.0); Hemoglobin 8.9 GM/DL (14.0-18.0); Immature Granulocytes % 5.9 %; Lymphocytes % 28.9 % (21.2-54.2); Mean Corpuscular HGB Conc 30.8 GM/DL (32-36); Mean Corpuscular Volume 93.2 FL (87-102); Mean Platelet Volume 10.6 FL (9.6-12.0); Monocytes % 15.3 % (1.7-12.7); Neutrophils % 37.3 % (38.7-73.9); Platelet Count 104 T/CUMM (130-400); White Blood Count 6.8 T/CUMM (4-12)
[2019-01-20 05:31] LABS: Eosinophils 6 % (0-10); Hypochromasia 1+; Lymphocytes 31 % (20-55); Myelocytes 2 %; Segmented Neutrophils 43 % (50-85); Total Cells Counted 100
[2019-01-20 05:32] LABS: Microcytosis 1+; Platelet Estimate Decreased
[2019-01-20 05:36] LABS: Calcium 8.3 MG/DL (8.5-10.1)
[2019-01-20] MEDS: DEXTROSE 10% 1,000 ML IV SCH (05:53)
[2019-01-20] MEDS: ISOSORBIDE MONONITRATE 60 MG TABLET PO SCH (07:18)
[2019-01-20] MEDS: LEVALBUTEROL 1.25 MG/3 ML NEB RESP TX SCH (07:25)
[2019-01-20 09:39] VITALS: BP 113/74
[2019-01-20] MEDS: DIVALPROEX 500 MG TABLET PO SCH (09:40)
[2019-01-20] MEDS: CALCIUM ACETATE 667 MG CAPSULE PO SCH ×2 (09:40→12:56)
[2019-01-20] MEDS: PANTOPRAZOLE 40 MG TABLET PO SCH (09:40)
[2019-01-20] MEDS: DOXAZOSIN 1 MG TABLET PO SCH (09:40)
[2019-01-20] MEDS: AMIODARONE 200 MG TABLET PO SCH (09:40)
[2019-01-20] MEDS: amLODIPine 5 MG TABLET PO SCH (09:41)
[2019-01-20] MEDS: DOCUSATE SODIUM 100 MG CAPSULE PO SCH (09:41)
[2019-01-20] MEDS: ASPIRIN EC 81 MG TABLET PO SCH (09:41)
[2019-01-20] MEDS: LACTULOSE 20 GM/30 ML UDCUP PO SCH (09:42)
[2019-01-20] MEDS: cefTRIAXone 1,000 MG in SYRINGE 1 EACH IV SCH (09:42)
[2019-01-20] MEDS: INSULIN GLARGINE 100 UNIT/ML SUBCUT SCH (11:43)
[2019-01-20] MEDS: METOPROLOL TARTRATE 100 MG TABLET PO SCH (11:44)
[2019-01-20] MEDS: ENOXAPARIN 30 MG/0.3 ML SYRINGE SUBCUT SCH (12:56)
== END 2019-01-20 11:14 | DRG 871 ==
LOC: EDUNIT# → EDBD → N.ED 05:58 → N.EDINP 06:58 → N.ICU 07:47 → N.3E 01-19 13:12
PROVIDERS: ADMIT Internal Medicine; ATTEND Internal Medicine

== ENCOUNTER 2019-03-04 17:35 | Inpatient (IN) ==
[2019-03-04 18:07] LABS: Basophils % 0.6 % (0.0-0.8); Eosinophils # 0.1 10*3/uL (0.0-0.87); Eosinophils % 1.6 % (0.00-10.9); Hematocrit 33.5 VOL% (42.0-52.0); Hemoglobin 10.2 GM/DL (14.0-18.0); Immature Granulocytes % 0.8 %; Immature Granulocytes Absolute 0.06 #; Lymphocytes # 2.3 10*3/uL (1.4-4.0); Lymphocytes % 32.2 % (21.2-54.2); Mean Corpuscular HGB Conc 30.4 GM/DL (32-36); Mean Platelet Volume 10.1 FL (9.6-12.0); Monocytes % 12.6 % (1.7-12.7); Neutrophils % 52.2 % (38.7-73.9); Platelet Count 126 T/CUMM (130-400); Red Blood Count 3.49 MC/CUMM (3.8-5.5); Red Cell Distribution Width 17.1 % (9.3-17.3); White Blood Count 7.1 T/CUMM (4-12)
[2019-03-04 18:14] LABS: INR 1.1
[2019-03-04 18:21] LABS: Albumin 2.3 G/DL (3.4-5.0); Bilirubin,Total 0.4 MG/DL (0.2-1.0); Calcium 8.7 MG/DL (8.5-10.1); Osmolality,Calculated 296.7 MOS/KG (273-304)
[2019-03-04 18:40] LABS: ABG Base Excess 4.4 MMOL/L (-2.5-2.5); ABG HCO3 28.3 MMOL/L (20-26); ABG Oxygen Saturation 97.3 % (95-100); ABG PCO2 48.6 MM HG (35-48); ABG PO2 91.7 MM HG (80-95); ABG TCO2 27.1 MMOL/L (23-27)
[2019-03-04] MEDS ORDERED: ACETAMINOPHEN 325 MG TABLET PO PRN (19:12)
[2019-03-04] MEDS ORDERED: ONDANSETRON 4 MG/2 ML VIAL IV PRN (19:12)
[2019-03-05] MEDS: DOCUSATE SODIUM 100 MG CAPSULE PO SCH ×3 (00:53→21:45)
[2019-03-05] MEDS: ASPIRIN EC 81 MG TABLET PO SCH ×3 (00:53→21:45)
[2019-03-05] MEDS: DIVALPROEX 500 MG TABLET PO SCH ×3 (00:54→21:45)
[2019-03-05] MEDS: ATORVASTATIN 20 MG TABLET PO SCH ×2 (00:54→21:45)
[2019-03-05 03:02] LABS: Basophils % 0.5 % (0.0-0.8); Eosinophils # 0.2 10*3/uL (0.0-0.87); Eosinophils % 2.4 % (0.00-10.9); Hematocrit 35.3 VOL% (42.0-52.0); Hemoglobin 10.8 GM/DL (14.0-18.0); Immature Granulocytes % 0.8 %; Immature Granulocytes Absolute 0.06 #; Lymphocytes # 2.3 10*3/uL (1.4-4.0); Lymphocytes % 30.8 % (21.2-54.2); Mean Corpuscular HGB Conc 30.6 GM/DL (32-36); Mean Corpuscular Volume 95.4 FL (87-102); Mean Platelet Volume 11.6 FL (9.6-12.0); Monocytes % 14.8 % (1.7-12.7); Neutrophils % 50.7 % (38.7-73.9); Platelet Count 140 T/CUMM (130-400); Red Cell Distribution Width 17.1 % (9.3-17.3); White Blood Count 7.5 T/CUMM (4-12)
[2019-03-05 03:20] LABS: Albumin 2.6 G/DL (3.4-5.0); Bilirubin,Total 0.6 MG/DL (0.2-1.0); Calcium 9.2 MG/DL (8.5-10.1); Osmolality,Calculated 294.8 MOS/KG (273-304); Total Protein 6.7 G/DL (6.4-8.3)
[2019-03-05] MEDS: LEVALBUTEROL 1.25 MG/3 ML NEB RESP TX SCH ×2 (08:13→20:08)
[2019-03-05] MEDS ORDERED: INSULIN GLARGINE 100 UNIT/ML SUBCUT SCH ×2 (09:00→17:00)
[2019-03-05] MEDS ORDERED: amLODIPine 5 MG TABLET PO SCH (09:00)
[2019-03-05] MEDS ORDERED: DOXAZOSIN 1 MG TABLET PO SCH (09:00)
[2019-03-05] MEDS: PANTOPRAZOLE 40 MG TABLET PO SCH (09:06)
[2019-03-06] MEDS ORDERED: ALBUTEROL/IPRATROPIUM 3 ML NEB RESP TX PRN (07:29)
[2019-03-06] MEDS ORDERED: GLUCAGON 1 MG VIAL IM PRN (07:31)
[2019-03-06] MEDS ORDERED: DEXTROSE 50% 25 GM/50 ML VIAL IV PRN (07:31)
[2019-03-06] MEDS: LEVALBUTEROL 1.25 MG/3 ML NEB RESP TX SCH ×2 (07:54→19:00)
[2019-03-06 09:02] LABS: Osmolality,Calculated 281.4 MOS/KG (273-304)
[2019-03-06] MEDS: LACTULOSE 20 GM/30 ML UDCUP PO SCH (10:05)
[2019-03-06] MEDS: CALCIUM ACETATE 667 MG CAPSULE PO SCH ×3 (10:05→18:47)
[2019-03-06] MEDS: PANTOPRAZOLE 40 MG TABLET PO SCH (10:05)
[2019-03-06] MEDS: DIVALPROEX 500 MG TABLET PO SCH ×2 (10:05→21:25)
[2019-03-06] MEDS: DOCUSATE SODIUM 100 MG CAPSULE PO SCH ×4 (10:05→21:25)
[2019-03-06] MEDS: METOPROLOL TARTRATE 100 MG TABLET PO SCH ×2 (10:05→21:25)
[2019-03-06] MEDS: ASPIRIN EC 81 MG TABLET PO SCH ×2 (10:05→21:25)
[2019-03-06] MEDS ORDERED: INSULIN REGULAR 100 UNIT/ML SUBCUT SCH (16:30)
[2019-03-06] MEDS: ACETAMINOPHEN 325 MG TABLET PO SCH ×2 (18:47→23:06)
[2019-03-06] MEDS: methylPREDNISolone SOD SUC 40 MG/1 ML VIAL IV SCH (18:48)
[2019-03-06] MEDS: ATORVASTATIN 20 MG TABLET PO SCH (21:25)
[2019-03-07 05:58] LABS: Calcium 8.9 MG/DL (8.5-10.1); Osmolality,Calculated 292.8 MOS/KG (273-304)
[2019-03-07] MEDS: ACETAMINOPHEN 325 MG TABLET PO SCH ×4 (06:40→21:35)
[2019-03-07] MEDS: methylPREDNISolone SOD SUC 40 MG/1 ML VIAL IV SCH ×2 (06:40→17:11)
[2019-03-07] MEDS: LEVALBUTEROL 1.25 MG/3 ML NEB RESP TX SCH ×2 (08:00→19:55)
[2019-03-07] MEDS: LACTULOSE 20 GM/30 ML UDCUP PO SCH (12:56)
[2019-03-07] MEDS: CALCIUM ACETATE 667 MG CAPSULE PO SCH ×3 (12:57→16:39)
[2019-03-07] MEDS: amLODIPine 5 MG TABLET PO PRN (12:57)
[2019-03-07] MEDS: ASPIRIN EC 81 MG TABLET PO SCH ×2 (12:57→20:22)
[2019-03-07] MEDS: PANTOPRAZOLE 40 MG TABLET PO SCH (12:57)
[2019-03-07] MEDS: DIVALPROEX 500 MG TABLET PO SCH ×2 (12:58→20:23)
[2019-03-07] MEDS: METOPROLOL TARTRATE 100 MG TABLET PO SCH ×2 (12:58→20:23)
[2019-03-07] MEDS: DOCUSATE SODIUM 100 MG CAPSULE PO SCH ×4 (12:59→20:23)
[2019-03-07] MEDS: ATORVASTATIN 20 MG TABLET PO SCH (20:23)
[2019-03-08] MEDS: ACETAMINOPHEN 325 MG TABLET PO SCH ×5 (00:33→21:46)
[2019-03-08] MEDS: methylPREDNISolone SOD SUC 40 MG/1 ML VIAL IV SCH ×2 (06:35→17:13)
[2019-03-08 06:57] LABS: Calcium 8.8 MG/DL (8.5-10.1); Osmolality,Calculated 287.8 MOS/KG (273-304)
[2019-03-08] MEDS: LEVALBUTEROL 1.25 MG/3 ML NEB RESP TX SCH ×2 (07:20→19:28)
[2019-03-08] MEDS: ASPIRIN EC 81 MG TABLET PO SCH ×2 (09:52→21:46)
[2019-03-08] MEDS: PANTOPRAZOLE 40 MG TABLET PO SCH (09:53)
[2019-03-08] MEDS: DOCUSATE SODIUM 100 MG CAPSULE PO SCH ×4 (09:53→21:47)
[2019-03-08] MEDS: CALCIUM ACETATE 667 MG CAPSULE PO SCH ×3 (09:53→17:13)
[2019-03-08] MEDS: DIVALPROEX 500 MG TABLET PO SCH ×2 (09:53→21:46)
[2019-03-08] MEDS: amLODIPine 5 MG TABLET PO PRN (09:53)
[2019-03-08] MEDS: METOPROLOL TARTRATE 100 MG TABLET PO SCH ×2 (09:53→21:46)
[2019-03-08] MEDS: LACTULOSE 20 GM/30 ML UDCUP PO SCH (09:54)
[2019-03-08] MEDS: ATORVASTATIN 20 MG TABLET PO SCH (21:46)
[2019-03-08] MEDS ORDERED: DEXTROSE 50% 25 GM/50 ML VIAL IV PRN (23:17)
[2019-03-08] MEDS ORDERED: GLUCAGON 1 MG VIAL IM PRN (23:17)
[2019-03-09] MEDS: ACETAMINOPHEN 325 MG TABLET PO SCH ×3 (03:24→16:23)
[2019-03-09 06:35] LABS: Calcium 8.5 MG/DL (8.5-10.1); Osmolality,Calculated 293.1 MOS/KG (273-304)
[2019-03-09] MEDS: methylPREDNISolone SOD SUC 40 MG/1 ML VIAL IV SCH (07:08)
[2019-03-09] MEDS: METOPROLOL TARTRATE 100 MG TABLET PO SCH (08:07)
[2019-03-09] MEDS: DIVALPROEX 500 MG TABLET PO SCH (08:07)
[2019-03-09] MEDS: DOCUSATE SODIUM 100 MG CAPSULE PO SCH ×2 (08:08→08:09)
[2019-03-09] MEDS: ASPIRIN EC 81 MG TABLET PO SCH (08:08)
[2019-03-09] MEDS: LACTULOSE 20 GM/30 ML UDCUP PO SCH (08:08)
[2019-03-09] MEDS: CALCIUM ACETATE 667 MG CAPSULE PO SCH ×2 (08:08→14:32)
[2019-03-09] MEDS: PANTOPRAZOLE 40 MG TABLET PO SCH (08:08)
[2019-03-09] MEDS: LEVALBUTEROL 1.25 MG/3 ML NEB RESP TX SCH (08:18)
[2019-03-09] MEDS: INSULIN REGULAR 100 UNIT/ML SUBCUT SCH ×3 (08:22→16:24)
[2019-03-09] MEDS ORDERED: DOXAZOSIN 1 MG TABLET PO SCH (09:00)
[2019-03-09] MEDS ORDERED: INSULIN GLARGINE 100 UNIT/ML SUBCUT SCH (09:00)
[2019-03-09 16:21] VITALS: BP 143/63
== END 2019-03-09 16:30 | disposition home or self-care (01) | DRG 70 ==
LOC: EDBD → EDUNIT# → N.ED 17:35 → N.EDINP 19:12 → N.4E 19:47 → N.5E 21:15
PROVIDERS: ADMIT Internal Medicine; ATTEND Internal Medicine

== ENCOUNTER 2019-05-10 12:07 | Inpatient (IN) ==
[2019-05-10] MEDS ORDERED: ONDANSETRON 4 MG/2 ML VIAL IV PRN (16:14)
[2019-05-10] MEDS ORDERED: ACETAMINOPHEN 325 MG TABLET PO PRN (16:14)
[2019-05-10] MEDS ORDERED: traMADol 50 MG TABLET PO PRN (16:22)
[2019-05-10] MEDS ORDERED: DEXTROSE 50% 25 GM/50 ML VIAL IV PRN ×2 (16:22→16:29)
[2019-05-10] MEDS ORDERED: MAGNESIUM HYDROXIDE SUSP 30 ML UDCUP PO PRN (16:22)
[2019-05-10] MEDS ORDERED: GLUCAGON 1 MG VIAL IM PRN (16:29)
[2019-05-10] MEDS: INSULIN REGULAR 100 UNIT/ML SUBCUT SCH (18:11)
[2019-05-10] MEDS: ALBUTEROL/IPRATROPIUM 3 ML NEB RESP TX SCH (18:12)
[2019-05-10 19:08] LABS: Basophils % 0.4 % (0.0-0.8); Eosinophils % 0.5 % (0.00-10.9); Hematocrit 46.7 VOL% (42.0-52.0); Immature Granulocytes % 0.9 %; Immature Granulocytes Absolute 0.07 #; Lymphocytes # 1.4 10*3/uL (1.4-4.0); Lymphocytes % 17.6 % (21.2-54.2); Mean Corpuscular Volume 100.4 FL (87-102); Mean Platelet Volume 11.4 FL (9.6-12.0); Monocytes % 8.9 % (1.7-12.7); Neutrophils % 71.7 % (38.7-73.9); Platelet Count 119 T/CUMM (130-400); Red Blood Count 4.65 MC/CUMM (3.8-5.5); Red Cell Distribution Width 18.3 % (9.3-17.3); White Blood Count 7.7 T/CUMM (4-12)
[2019-05-10 19:19] LABS: Albumin 2.8 G/DL (3.4-5.0); Bilirubin,Total 0.4 MG/DL (0.2-1.0); Calcium 10.4 MG/DL (8.5-10.1); Osmolality,Calculated 276.2 MOS/KG (273-304); Total Protein 7.7 G/DL (6.4-8.3)
[2019-05-10] MEDS: CLINDAMYCIN INJ 300 MG in PREMIX 1 EACH IV SCH (21:13)
[2019-05-10] MEDS: ENOXAPARIN 30 MG/0.3 ML SYRINGE SUBCUT SCH (21:16)
[2019-05-10] MEDS: DOCUSATE SODIUM 100 MG CAPSULE PO SCH (21:16)
[2019-05-11] MEDS: ALBUTEROL/IPRATROPIUM 3 ML NEB RESP TX SCH ×2 (00:25→07:23)
[2019-05-11] MEDS: CLINDAMYCIN INJ 300 MG in PREMIX 1 EACH IV SCH ×4 (02:09→20:53)
[2019-05-11 06:35] LABS: Osmolality,Calculated 287.8 MOS/KG (273-304); Risk Ratio 3.95; VLDL CHOLESTEROL 20.8 MG/DL
[2019-05-11] MEDS ORDERED: ALBUTEROL/IPRATROPIUM 3 ML NEB RESP TX PRN (08:40)
[2019-05-11] MEDS: DOXAZOSIN 1 MG TABLET PO SCH (09:01)
[2019-05-11] MEDS: METOPROLOL TARTRATE 100 MG TABLET PO SCH ×2 (09:02→20:47)
[2019-05-11] MEDS: ASPIRIN EC 81 MG TABLET PO SCH (09:02)
[2019-05-11] MEDS: PANTOPRAZOLE 40 MG TABLET PO SCH (09:02)
[2019-05-11] MEDS: DOCUSATE SODIUM 100 MG CAPSULE PO SCH ×4 (09:02→21:20)
[2019-05-11] MEDS: DIVALPROEX 500 MG TABLET PO SCH ×2 (09:02→20:47)
[2019-05-11] MEDS: LACTULOSE 20 GM/30 ML UDCUP PO SCH (09:02)
[2019-05-11] MEDS: amLODIPine 5 MG TABLET PO SCH (09:02)
[2019-05-11] MEDS: INSULIN REGULAR 100 UNIT/ML SUBCUT SCH ×2 (09:08→17:43)
[2019-05-11] MEDS ORDERED: SKIN HEALING OINT (AQUAPHOR) 50 GM TUBE TOP PRN (09:28)
[2019-05-11] MEDS: CALCIUM ACETATE 667 MG CAPSULE PO SCH ×2 (12:02→17:50)
[2019-05-11] MEDS: ALBUTEROL 2.5 MG/3 ML NEB RESP TX SCH (20:07)
[2019-05-11] MEDS: ATORVASTATIN 20 MG TABLET PO SCH (20:47)
[2019-05-11] MEDS: ENOXAPARIN 30 MG/0.3 ML SYRINGE SUBCUT SCH (20:53)
[2019-05-12] MEDS: MENTHOL/ZINC OXIDE OINT 71 GM JAR TOP SCH ×3 (00:21→23:50)
[2019-05-12] MEDS: CLINDAMYCIN INJ 300 MG in PREMIX 1 EACH IV SCH ×4 (03:05→23:46)
[2019-05-12 06:56] LABS: Basophils % 0.5 % (0.0-0.8); Eosinophils % 0.1 % (0.00-10.9); Hematocrit 46.2 VOL% (42.0-52.0); Hemoglobin 14.7 GM/DL (14.0-18.0); Immature Granulocytes % 0.5 %; Immature Granulocytes Absolute 0.04 #; Lymphocytes # 2.2 10*3/uL (1.4-4.0); Lymphocytes % 27.2 % (21.2-54.2); Mean Corpuscular HGB Conc 31.8 GM/DL (32-36); Mean Corpuscular Volume 94.7 FL (87-102); Mean Platelet Volume 11.7 FL (9.6-12.0); Monocytes % 8.7 % (1.7-12.7); Platelet Count 122 T/CUMM (130-400); Red Blood Count 4.88 MC/CUMM (3.8-5.5)
[2019-05-12] MEDS: ALBUTEROL 2.5 MG/3 ML NEB RESP TX SCH ×2 (07:22→18:30)
[2019-05-12 07:48] LABS: Calcium 9.6 MG/DL (8.5-10.1)
[2019-05-12 07:49] LABS: Osmolality,Calculated 275.4 MOS/KG (273-304)
[2019-05-12] MEDS: ASPIRIN EC 81 MG TABLET PO SCH (09:48)
[2019-05-12] MEDS: METOPROLOL TARTRATE 100 MG TABLET PO SCH (09:48)
[2019-05-12] MEDS: DOXAZOSIN 1 MG TABLET PO SCH (09:49)
[2019-05-12] MEDS: DIVALPROEX 500 MG TABLET PO SCH (09:49)
[2019-05-12] MEDS: CALCIUM ACETATE 667 MG CAPSULE PO SCH ×3 (09:50→16:44)
[2019-05-12] MEDS: amLODIPine 5 MG TABLET PO SCH (09:50)
[2019-05-12] MEDS: PANTOPRAZOLE 40 MG TABLET PO SCH (09:50)
[2019-05-12] MEDS: LACTULOSE 20 GM/30 ML UDCUP PO SCH (09:52)
[2019-05-12] MEDS: DOCUSATE SODIUM 100 MG CAPSULE PO SCH ×2 (09:52→09:53)
[2019-05-12] MEDS: INSULIN REGULAR 100 UNIT/ML SUBCUT SCH ×2 (10:21→16:40)
[2019-05-12] MEDS ORDERED: DEXTROSE 10% 250 ML IV ONE (21:03)
[2019-05-12] MEDS ORDERED: DEXTROSE 10% 250 ML BAG IV ONE (21:05)
[2019-05-12] MEDS: DEXTROSE 5% 1,000 ML IV SCH (21:25)
[2019-05-13 01:27] LABS: Basophils % 0.5 % (0.0-0.8); Eosinophils % 0.3 % (0.00-10.9); Hematocrit 41.5 VOL% (42.0-52.0); Hemoglobin 13.1 GM/DL (14.0-18.0); Immature Granulocytes % 0.6 %; Immature Granulocytes Absolute 0.05 #; Lymphocytes # 2.2 10*3/uL (1.4-4.0); Lymphocytes % 24.9 % (21.2-54.2); Mean Corpuscular HGB Conc 31.6 GM/DL (32-36); Mean Corpuscular Volume 94.7 FL (87-102); Mean Platelet Volume 11.8 FL (9.6-12.0); Monocytes % 11.2 % (1.7-12.7); Neutrophils % 62.5 % (38.7-73.9); Platelet Count 123 T/CUMM (130-400); Red Blood Count 4.38 MC/CUMM (3.8-5.5); Red Cell Distribution Width 17.8 % (9.3-17.3); White Blood Count 8.6 T/CUMM (4-12)
[2019-05-13 01:48] LABS: Alanine Aminotransferase < 6 U/L (16-61); Albumin 2.6 G/DL (3.4-5.0); Alkaline Phosphatase 60 U/L (45-117); Aspartate Amino Transferase 17 U/L (0-37); Blood Urea Nitrogen 31 MG/DL (7-18); Calcium 9.9 MG/DL (8.5-10.1); Estimated Glom Filtration Rate 9 ML/MIN; Glucose 165 MG/DL (74-106); Osmolality,Calculated 276.4 MOS/KG (273-304); Total Protein 6.8 G/DL (6.4-8.3)
[2019-05-13] MEDS: DOCUSATE SODIUM 100 MG CAPSULE PO SCH ×6 (03:03→21:16)
[2019-05-13] MEDS: ENOXAPARIN 30 MG/0.3 ML SYRINGE SUBCUT SCH ×2 (03:04→21:21)
[2019-05-13] MEDS: ATORVASTATIN 20 MG TABLET PO SCH ×2 (03:04→21:16)
[2019-05-13] MEDS: DIVALPROEX 500 MG TABLET PO SCH ×3 (03:04→21:16)
[2019-05-13] MEDS: METOPROLOL TARTRATE 100 MG TABLET PO SCH ×3 (03:04→21:16)
[2019-05-13] MEDS: CLINDAMYCIN INJ 300 MG in PREMIX 1 EACH IV SCH ×4 (03:52→21:09)
[2019-05-13] MEDS: DEXTROSE 5% 1,000 ML IV SCH (07:27)
[2019-05-13] MEDS: ALBUTEROL 2.5 MG/3 ML NEB RESP TX SCH ×2 (08:05→20:08)
[2019-05-13] MEDS: CALCIUM ACETATE 667 MG CAPSULE PO SCH ×3 (09:32→16:48)
[2019-05-13] MEDS: DOXAZOSIN 1 MG TABLET PO SCH (09:34)
[2019-05-13] MEDS: LACTULOSE 20 GM/30 ML UDCUP PO SCH (09:34)
[2019-05-13] MEDS: PANTOPRAZOLE 40 MG TABLET PO SCH (09:34)
[2019-05-13] MEDS: ASPIRIN EC 81 MG TABLET PO SCH (09:34)
[2019-05-13] MEDS: INSULIN REGULAR 100 UNIT/ML SUBCUT SCH ×2 (09:35→16:47)
[2019-05-13] MEDS: amLODIPine 5 MG TABLET PO SCH (09:35)
[2019-05-13] MEDS: MENTHOL/ZINC OXIDE OINT 71 GM JAR TOP SCH ×2 (09:36→21:15)
[2019-05-13] MEDS: POTASSIUM CHLORIDE RIDER 10 MEQ in PREMIX 1 EACH IV SCH ×2 (18:11→21:14)
[2019-05-13] MEDS: POTASSIUM CHLORIDE INJ 20 MEQ in DEXTROSE 5% 1,000 ML IV SCH (18:11)
[2019-05-14] MEDS: CLINDAMYCIN INJ 300 MG in PREMIX 1 EACH IV SCH ×4 (03:27→21:38)
[2019-05-14 06:14] LABS: Basophils % 0.3 % (0.0-0.8); Eosinophils # 0.1 10*3/uL (0.0-0.87); Eosinophils % 1.5 % (0.00-10.9); Hematocrit 35.1 VOL% (42.0-52.0); Hemoglobin 11.6 GM/DL (14.0-18.0); Immature Granulocytes % 0.8 %; Immature Granulocytes Absolute 0.05 #; Lymphocytes # 1.7 10*3/uL (1.4-4.0); Lymphocytes % 28.9 % (21.2-54.2); Mean Corpuscular Volume 91.9 FL (87-102); Mean Platelet Volume 10.8 FL (9.6-12.0); Monocytes % 12.6 % (1.7-12.7); Neutrophils % 55.9 % (38.7-73.9); Platelet Count 110 T/CUMM (130-400); Red Blood Count 3.82 MC/CUMM (3.8-5.5)
[2019-05-14] MEDS: POTASSIUM CHLORIDE INJ 20 MEQ in DEXTROSE 5% 1,000 ML IV SCH (06:28)
[2019-05-14 06:48] LABS: Alanine Aminotransferase < 6 U/L (16-61); Albumin 2.3 G/DL (3.4-5.0); Alkaline Phosphatase 56 U/L (45-117); Aspartate Amino Transferase 14 U/L (0-37); Blood Urea Nitrogen 41 MG/DL (7-18); Calcium 8.7 MG/DL (8.5-10.1); Estimated Glom Filtration Rate 7 ML/MIN; Glucose 365 MG/DL (74-106); Osmolality,Calculated 273.6 MOS/KG (273-304)
[2019-05-14] MEDS: ALBUTEROL 2.5 MG/3 ML NEB RESP TX SCH ×2 (07:06→19:43)
[2019-05-14] MEDS: INSULIN REGULAR 100 UNIT/ML SUBCUT SCH ×2 (08:28→16:56)
[2019-05-14] MEDS: MENTHOL/ZINC OXIDE OINT 71 GM JAR TOP SCH ×2 (08:40→21:34)
[2019-05-14] MEDS: CALCIUM ACETATE 667 MG CAPSULE PO SCH ×3 (09:40→16:40)
[2019-05-14] MEDS: DOCUSATE SODIUM 100 MG CAPSULE PO SCH ×4 (16:40→21:28)
[2019-05-14] MEDS: ASPIRIN EC 81 MG TABLET PO SCH (16:40)
[2019-05-14] MEDS: METOPROLOL TARTRATE 100 MG TABLET PO SCH ×2 (16:42→21:28)
[2019-05-14] MEDS: DOXAZOSIN 1 MG TABLET PO SCH (16:42)
[2019-05-14] MEDS: LACTULOSE 20 GM/30 ML UDCUP PO SCH (16:42)
[2019-05-14] MEDS: PANTOPRAZOLE 40 MG TABLET PO SCH (16:43)
[2019-05-14] MEDS: DIVALPROEX 500 MG TABLET PO SCH ×2 (16:43→21:28)
[2019-05-14] MEDS: amLODIPine 5 MG TABLET PO SCH (16:44)
[2019-05-14] MEDS ORDERED: DEXTROSE 5% KCL 20 MEQ 20 MEQ/1,000 ML BAG IV SCH (17:33)
[2019-05-14] MEDS: ENOXAPARIN 30 MG/0.3 ML SYRINGE SUBCUT SCH (21:27)
[2019-05-14] MEDS: INSULIN GLARGINE 100 UNIT/ML SUBCUT SCH (21:27)
[2019-05-14] MEDS: ATORVASTATIN 20 MG TABLET PO SCH (21:28)
[2019-05-14] MEDS: SODIUM CHLORIDE 0.9% 1,000 ML IV SCH (21:34)
[2019-05-15] MEDS: CLINDAMYCIN INJ 300 MG in PREMIX 1 EACH IV SCH ×4 (02:36→21:16)
[2019-05-15 04:58] LABS: Basophils % 0.5 % (0.0-0.8); Eosinophils # 0.2 10*3/uL (0.0-0.87); Hematocrit 34.8 VOL% (42.0-52.0); Hemoglobin 11.3 GM/DL (14.0-18.0); Immature Granulocytes % 0.7 %; Immature Granulocytes Absolute 0.05 #; Mean Corpuscular HGB Conc 32.5 GM/DL (32-36); Mean Corpuscular Volume 92.6 FL (87-102); Mean Platelet Volume 11.3 FL (9.6-12.0); Monocytes % 11.9 % (1.7-12.7); Neutrophils % 44.9 % (38.7-73.9); Platelet Count 114 T/CUMM (130-400); Red Blood Count 3.76 MC/CUMM (3.8-5.5); Red Cell Distribution Width 17.6 % (9.3-17.3); White Blood Count 7.7 T/CUMM (4-12)
[2019-05-15 05:17] LABS: Calcium 8.9 MG/DL (8.5-10.1); Osmolality,Calculated 270.2 MOS/KG (273-304)
[2019-05-15] MEDS: ALBUTEROL/IPRATROPIUM 3 ML NEB RESP TX SCH ×3 (07:10→20:08)
[2019-05-15] MEDS: INSULIN REGULAR 100 UNIT/ML SUBCUT SCH ×2 (09:14→18:03)
[2019-05-15] MEDS: DOCUSATE SODIUM 100 MG CAPSULE PO SCH ×2 (09:23→21:16)
[2019-05-15] MEDS: PANTOPRAZOLE 40 MG TABLET PO SCH (09:23)
[2019-05-15] MEDS: ASPIRIN EC 81 MG TABLET PO SCH (09:23)
[2019-05-15] MEDS: METOPROLOL TARTRATE 100 MG TABLET PO SCH ×2 (09:23→21:19)
[2019-05-15] MEDS: LACTULOSE 20 GM/30 ML UDCUP PO SCH (09:23)
[2019-05-15] MEDS: CALCIUM ACETATE 667 MG CAPSULE PO SCH ×3 (09:24→18:05)
[2019-05-15] MEDS: VALPROIC ACID 250 MG/5 ML UDCUP PO SCH ×3 (09:24→21:20)
[2019-05-15] MEDS: MENTHOL/ZINC OXIDE OINT 71 GM JAR TOP SCH ×2 (09:45→21:20)
[2019-05-15] MEDS: POTASSIUM CHLORIDE INJ 20 MEQ in DEXTROSE 5% 1,000 ML IV SCH (10:08)
[2019-05-15] MEDS: SODIUM CHLORIDE 0.9% 1,000 ML IV SCH (21:15)
[2019-05-15] MEDS: INSULIN GLARGINE 100 UNIT/ML SUBCUT SCH (21:17)
[2019-05-15] MEDS: ENOXAPARIN 30 MG/0.3 ML SYRINGE SUBCUT SCH (21:18)
[2019-05-15] MEDS: ATORVASTATIN 20 MG TABLET PO SCH (21:18)
[2019-05-16] MEDS: ALBUTEROL/IPRATROPIUM 3 ML NEB RESP TX SCH ×4 (01:44→19:35)
[2019-05-16] MEDS: CLINDAMYCIN INJ 300 MG in PREMIX 1 EACH IV SCH ×4 (03:15→21:04)
[2019-05-16 05:22] LABS: Basophils % 0.7 % (0.0-0.8); Eosinophils # 0.3 10*3/uL (0.0-0.87); Eosinophils % 5.7 % (0.00-10.9); Hematocrit 31.4 VOL% (42.0-52.0); Hemoglobin 10.4 GM/DL (14.0-18.0); Immature Granulocytes % 0.8 %; Immature Granulocytes Absolute 0.05 #; Lymphocytes # 2.3 10*3/uL (1.4-4.0); Lymphocytes % 37.6 % (21.2-54.2); Mean Corpuscular HGB Conc 33.1 GM/DL (32-36); Mean Corpuscular Volume 92.4 FL (87-102); Mean Platelet Volume 11.8 FL (9.6-12.0); Monocytes % 13.9 % (1.7-12.7); Neutrophils % 41.3 % (38.7-73.9); Platelet Count 115 T/CUMM (130-400); Red Cell Distribution Width 17.4 % (9.3-17.3)
[2019-05-16 05:33] LABS: Calcium 8.6 MG/DL (8.5-10.1); Osmolality,Calculated 272.4 MOS/KG (273-304)
[2019-05-16] MEDS: INSULIN REGULAR 100 UNIT/ML SUBCUT SCH ×2 (07:52→16:13)
[2019-05-16] MEDS: GLUCAGON 1 MG VIAL IM PRN (08:35)
[2019-05-16] MEDS: CALCIUM ACETATE 667 MG CAPSULE PO SCH ×3 (08:47→17:35)
[2019-05-16] MEDS: MENTHOL/ZINC OXIDE OINT 71 GM JAR TOP SCH ×2 (08:59→21:07)
[2019-05-16] MEDS: METOPROLOL TARTRATE 100 MG TABLET PO SCH ×2 (09:00→21:04)
[2019-05-16] MEDS ORDERED: DEXTROSE 10% 25 GM/250 ML BAG IV PRN (09:00)
[2019-05-16] MEDS: DOCUSATE SODIUM 100 MG CAPSULE PO SCH ×2 (09:00→21:04)
[2019-05-16] MEDS: VALPROIC ACID 250 MG/5 ML UDCUP PO SCH ×2 (09:00→21:03)
[2019-05-16] MEDS: ASPIRIN EC 81 MG TABLET PO SCH (17:35)
[2019-05-16] MEDS: PANTOPRAZOLE 40 MG TABLET PO SCH (17:36)
[2019-05-16] MEDS: LACTULOSE 20 GM/30 ML UDCUP PO SCH (17:36)
[2019-05-16] MEDS: INSULIN GLARGINE 100 UNIT/ML SUBCUT SCH (20:22)
[2019-05-16] MEDS: ENOXAPARIN 30 MG/0.3 ML SYRINGE SUBCUT SCH (21:03)
[2019-05-16] MEDS: ATORVASTATIN 20 MG TABLET PO SCH (21:04)
[2019-05-16] MEDS: SODIUM CHLORIDE 0.9% 1,000 ML IV SCH (21:04)
[2019-05-17] MEDS: ALBUTEROL/IPRATROPIUM 3 ML NEB RESP TX SCH ×4 (00:59→20:32)
[2019-05-17] MEDS: CLINDAMYCIN INJ 300 MG in PREMIX 1 EACH IV SCH ×4 (03:19→22:14)
[2019-05-17 04:52] LABS: Basophils % 0.5 % (0.0-0.8); Eosinophils # 0.3 10*3/uL (0.0-0.87); Hemoglobin 10.8 GM/DL (14.0-18.0); Immature Granulocytes % 0.6 %; Immature Granulocytes Absolute 0.04 #; Lymphocytes # 2.5 10*3/uL (1.4-4.0); Lymphocytes % 39.6 % (21.2-54.2); Mean Corpuscular HGB Conc 32.7 GM/DL (32-36); Mean Platelet Volume 11.8 FL (9.6-12.0); Monocytes % 15.3 % (1.7-12.7); Platelet Count 121 T/CUMM (130-400); Red Blood Count 3.55 MC/CUMM (3.8-5.5); Red Cell Distribution Width 17.8 % (9.3-17.3); White Blood Count 6.4 T/CUMM (4-12)
[2019-05-17 05:12] LABS: Calcium 8.3 MG/DL (8.5-10.1); Osmolality,Calculated 274.2 MOS/KG (273-304)
[2019-05-17] MEDS: INSULIN REGULAR 100 UNIT/ML SUBCUT SCH ×2 (08:12→16:26)
[2019-05-17] MEDS: ASPIRIN EC 81 MG TABLET PO SCH (08:58)
[2019-05-17] MEDS: LACTULOSE 20 GM/30 ML UDCUP PO SCH (08:58)
[2019-05-17] MEDS: CALCIUM ACETATE 667 MG CAPSULE PO SCH ×3 (08:58→17:41)
[2019-05-17] MEDS: MENTHOL/ZINC OXIDE OINT 71 GM JAR TOP SCH ×2 (08:59→22:16)
[2019-05-17] MEDS: VALPROIC ACID 250 MG/5 ML UDCUP PO SCH ×2 (08:59→22:13)
[2019-05-17] MEDS: METOPROLOL TARTRATE 100 MG TABLET PO SCH ×2 (08:59→22:14)
[2019-05-17] MEDS: PANTOPRAZOLE 40 MG TABLET PO SCH (08:59)
[2019-05-17] MEDS: DOCUSATE SODIUM 100 MG CAPSULE PO SCH ×2 (09:00→22:14)
[2019-05-17] MEDS: SODIUM CHLORIDE 0.9% 1,000 ML IV SCH ×2 (11:00→22:16)
[2019-05-17 14:52] LABS: INR 1.1; PT Patient Result 11.5 SECS (9.6-12.2)
[2019-05-17] MEDS: ATORVASTATIN 20 MG TABLET PO SCH (22:14)
[2019-05-17] MEDS: INSULIN GLARGINE 100 UNIT/ML SUBCUT SCH (22:14)
[2019-05-17] MEDS: ENOXAPARIN 30 MG/0.3 ML SYRINGE SUBCUT SCH (22:15)
[2019-05-18] MEDS: ALBUTEROL/IPRATROPIUM 3 ML NEB RESP TX SCH ×4 (01:01→20:23)
[2019-05-18] MEDS: CLINDAMYCIN INJ 300 MG in PREMIX 1 EACH IV SCH ×4 (04:30→23:13)
[2019-05-18 05:56] LABS: Basophils # 0.1 10*3/uL (0.0-0.2); Basophils % 0.6 % (0.0-0.8); Eosinophils # 0.6 10*3/uL (0.0-0.87); Eosinophils % 7.3 % (0.00-10.9); Hematocrit 33.8 VOL% (42.0-52.0); Hemoglobin 10.7 GM/DL (14.0-18.0); Immature Granulocytes % 0.9 %; Immature Granulocytes Absolute 0.07 #; Lymphocytes # 4.3 10*3/uL (1.4-4.0); Lymphocytes % 53.1 % (21.2-54.2); Mean Corpuscular HGB Conc 31.7 GM/DL (32-36); Mean Corpuscular Volume 96.6 FL (87-102); Mean Platelet Volume 10.9 FL (9.6-12.0); Monocytes % 13.1 % (1.7-12.7); Platelet Count 153 T/CUMM (130-400); Red Cell Distribution Width 18.2 % (9.3-17.3); White Blood Count 8.1 T/CUMM (4-12)
[2019-05-18 06:16] LABS: Albumin 2.3 G/DL (3.4-5.0); Bilirubin,Total 1.3 MG/DL (0.2-1.0); Calcium 8.6 MG/DL (8.5-10.1); Osmolality,Calculated 269.2 MOS/KG (273-304)
[2019-05-18 06:44] LABS: Eosinophils 12 % (0-10); Lymphocytes 58 % (20-55); Nucleated Red Blood Cells 1 (0-5); Platelet Estimate Normal; Segmented Neutrophils 19 % (50-85); Total Cells Counted 100
[2019-05-18 06:45] LABS: Anisocytosis 3+; Poikilocytosis Slight
[2019-05-18 06:46] LABS: Macrocytosis 1+
[2019-05-18] MEDS: GLUCAGON 1 MG VIAL IM PRN ×2 (07:11→18:54)
[2019-05-18] MEDS: INSULIN REGULAR 100 UNIT/ML SUBCUT SCH ×2 (08:25→18:28)
[2019-05-18] MEDS: CALCIUM ACETATE 667 MG CAPSULE PO SCH ×3 (08:40→18:54)
[2019-05-18] MEDS: ASPIRIN EC 81 MG TABLET PO SCH (08:40)
[2019-05-18] MEDS: LACTULOSE 20 GM/30 ML UDCUP PO SCH (08:41)
[2019-05-18] MEDS: DOCUSATE SODIUM 100 MG CAPSULE PO SCH ×2 (08:41→23:13)
[2019-05-18] MEDS: PANTOPRAZOLE 40 MG TABLET PO SCH (08:41)
[2019-05-18] MEDS ORDERED: HEPARIN/NACL 0.9% 2 UNITS/ML 2,000 ML IV ONE (08:51)
[2019-05-18] MEDS: METOPROLOL TARTRATE 100 MG TABLET PO SCH ×2 (09:20→23:13)
[2019-05-18] MEDS: VALPROIC ACID 250 MG/5 ML UDCUP PO SCH ×2 (09:20→23:12)
[2019-05-18] MEDS ORDERED: MIDAZOLAM 2 MG/2 ML VIAL IV ONE (09:30)
[2019-05-18] MEDS ORDERED: fentaNYL 100 MCG/2 ML VIAL IV ONE (09:30)
[2019-05-18] MEDS ORDERED: fentaNYL 100 MCG/2 ML VIAL ONE (11:29)
[2019-05-18] MEDS ORDERED: MIDAZOLAM 2 MG/2 ML VIAL ONE (11:29)
[2019-05-18] MEDS ORDERED: HEPARIN 5,000 UNIT/1 ML VIAL ONE (11:36)
[2019-05-18] MEDS ORDERED: ALTEPLASE 2 MG VIAL ONE (12:54)
[2019-05-18] MEDS ORDERED: HEPARIN 5,000 UNIT/1 ML VIAL IV ONE (13:04)
[2019-05-18] MEDS: SODIUM CHLORIDE 0.9% 1,000 ML IV SCH ×2 (14:26→23:14)
[2019-05-18] MEDS: MENTHOL/ZINC OXIDE OINT 71 GM JAR TOP SCH ×2 (18:55→23:13)
[2019-05-18] MEDS: INSULIN GLARGINE 100 UNIT/ML SUBCUT SCH (22:22)
[2019-05-18] MEDS: ENOXAPARIN 30 MG/0.3 ML SYRINGE SUBCUT SCH (23:12)
[2019-05-18] MEDS: ATORVASTATIN 20 MG TABLET PO SCH (23:13)
[2019-05-19] MEDS: ALBUTEROL/IPRATROPIUM 3 ML NEB RESP TX SCH ×4 (00:50→20:51)
[2019-05-19] MEDS: CLINDAMYCIN INJ 300 MG in PREMIX 1 EACH IV SCH ×4 (05:29→22:45)
[2019-05-19 06:10] LABS: Basophils % 0.5 % (0.0-0.8); Eosinophils # 0.3 10*3/uL (0.0-0.87); Eosinophils % 4.9 % (0.00-10.9); Hematocrit 35.7 VOL% (42.0-52.0); Hemoglobin 11.2 GM/DL (14.0-18.0); Immature Granulocytes % 0.6 %; Immature Granulocytes Absolute 0.04 #; Lymphocytes # 2.4 10*3/uL (1.4-4.0); Lymphocytes % 37.3 % (21.2-54.2); Mean Corpuscular HGB Conc 31.4 GM/DL (32-36); Mean Corpuscular Volume 97.3 FL (87-102); Mean Platelet Volume 11.9 FL (9.6-12.0); Monocytes % 15.6 % (1.7-12.7); Neutrophils % 41.1 % (38.7-73.9); Platelet Count 111 T/CUMM (130-400); Red Blood Count 3.67 MC/CUMM (3.8-5.5); Red Cell Distribution Width 18.4 % (9.3-17.3); White Blood Count 6.4 T/CUMM (4-12)
[2019-05-19 06:38] LABS: Albumin 2.3 G/DL (3.4-5.0); Bilirubin,Total 1.6 MG/DL (0.2-1.0); Calcium 8.6 MG/DL (8.5-10.1); Osmolality,Calculated 272.1 MOS/KG (273-304); Total Protein 6.3 G/DL (6.4-8.3)
[2019-05-19] MEDS: SODIUM CHLORIDE 0.9% 1,000 ML IV SCH ×2 (06:58→06:59)
[2019-05-19 08:55] LABS: Band Neutrophils 1 % (0-10); Eosinophils 2 % (0-10); Lymphocytes 20 % (20-55); Segmented Neutrophils 63 % (50-85); Total Cells Counted 100
[2019-05-19 08:56] LABS: Platelet Estimate Adequate
[2019-05-19] MEDS: VALPROIC ACID 250 MG/5 ML UDCUP PO SCH ×2 (08:56→22:45)
[2019-05-19] MEDS: LACTULOSE 20 GM/30 ML UDCUP PO SCH (08:56)
[2019-05-19] MEDS: METOPROLOL TARTRATE 100 MG TABLET PO SCH ×2 (08:56→22:43)
[2019-05-19] MEDS: ASPIRIN EC 81 MG TABLET PO SCH (09:01)
[2019-05-19] MEDS: MENTHOL/ZINC OXIDE OINT 71 GM JAR TOP SCH ×2 (09:02→22:47)
[2019-05-19] MEDS: INSULIN REGULAR 100 UNIT/ML SUBCUT SCH ×2 (09:02→17:07)
[2019-05-19] MEDS: PANTOPRAZOLE 40 MG TABLET PO SCH (09:03)
[2019-05-19] MEDS: CALCIUM ACETATE 667 MG CAPSULE PO SCH ×3 (09:03→18:22)
[2019-05-19] MEDS: DOCUSATE SODIUM 100 MG CAPSULE PO SCH ×2 (09:03→22:43)
[2019-05-19] MEDS: ATORVASTATIN 20 MG TABLET PO SCH (22:43)
[2019-05-19] MEDS: ENOXAPARIN 30 MG/0.3 ML SYRINGE SUBCUT SCH (22:45)
[2019-05-19] MEDS: INSULIN GLARGINE 100 UNIT/ML SUBCUT SCH (22:47)
[2019-05-20] MEDS: ALBUTEROL/IPRATROPIUM 3 ML NEB RESP TX SCH ×4 (01:12→20:00)
[2019-05-20] MEDS: CLINDAMYCIN INJ 300 MG in PREMIX 1 EACH IV SCH ×3 (02:12→17:37)
[2019-05-20 06:54] LABS: Basophils % 0.5 % (0.0-0.8); Eosinophils # 0.3 10*3/uL (0.0-0.87); Hematocrit 33.9 VOL% (42.0-52.0); Hemoglobin 10.3 GM/DL (14.0-18.0); Immature Granulocytes % 0.8 %; Immature Granulocytes Absolute 0.05 #; Lymphocytes # 2.3 10*3/uL (1.4-4.0); Lymphocytes % 37.6 % (21.2-54.2); Mean Corpuscular HGB Conc 30.4 GM/DL (32-36); Mean Corpuscular Volume 100.3 FL (87-102); Monocytes % 16.2 % (1.7-12.7); Neutrophils % 39.9 % (38.7-73.9); Platelet Count 112 T/CUMM (130-400); Red Blood Count 3.38 MC/CUMM (3.8-5.5); Red Cell Distribution Width 18.7 % (9.3-17.3)
[2019-05-20 07:29] LABS: Calcium 8.5 MG/DL (8.5-10.1); Osmolality,Calculated 267.4 MOS/KG (273-304)
[2019-05-20] MEDS: INSULIN REGULAR 100 UNIT/ML SUBCUT SCH ×2 (07:47→15:56)
[2019-05-20] MEDS: SODIUM CHLORIDE 0.9% 1,000 ML IV SCH (07:47)
[2019-05-20] MEDS: LACTULOSE 20 GM/30 ML UDCUP PO SCH (09:24)
[2019-05-20] MEDS: METOPROLOL TARTRATE 100 MG TABLET PO SCH ×3 (09:24→20:47)
[2019-05-20] MEDS: DOCUSATE SODIUM 100 MG CAPSULE PO SCH ×2 (09:24→20:40)
[2019-05-20] MEDS: VALPROIC ACID 250 MG/5 ML UDCUP PO SCH ×2 (09:24→20:40)
[2019-05-20] MEDS: PANTOPRAZOLE 40 MG TABLET PO SCH (09:24)
[2019-05-20] MEDS: CALCIUM ACETATE 667 MG CAPSULE PO SCH ×3 (09:24→18:01)
[2019-05-20] MEDS: MENTHOL/ZINC OXIDE OINT 71 GM JAR TOP SCH ×2 (09:25→20:40)
[2019-05-20 12:29] LABS: Eosinophils 4 % (0-10); Lymphocytes 29 % (20-55); Platelet Estimate Adequate; Polychromasia Slight; Segmented Neutrophils 52 % (50-85); Total Cells Counted 100
[2019-05-20] MEDS: ASPIRIN EC 81 MG TABLET PO SCH (13:30)
[2019-05-20] MEDS: ATORVASTATIN 20 MG TABLET PO SCH (20:40)
[2019-05-20] MEDS: CLINDAMYCIN 300 MG CAPSULE PO SCH (20:40)
[2019-05-20] MEDS: ENOXAPARIN 30 MG/0.3 ML SYRINGE SUBCUT SCH (20:40)
[2019-05-20] MEDS: INSULIN GLARGINE 100 UNIT/ML SUBCUT SCH (21:09)
[2019-05-21] MEDS: ALBUTEROL/IPRATROPIUM 3 ML NEB RESP TX SCH ×4 (00:53→19:44)
[2019-05-21 06:47] LABS: Basophils % 0.4 % (0.0-0.8); Eosinophils # 0.4 10*3/uL (0.0-0.87); Eosinophils % 5.2 % (0.00-10.9); Hematocrit 30.6 VOL% (42.0-52.0); Hemoglobin 9.9 GM/DL (14.0-18.0); Immature Granulocytes % 0.9 %; Immature Granulocytes Absolute 0.06 #; Lymphocytes # 2.4 10*3/uL (1.4-4.0); Lymphocytes % 35.6 % (21.2-54.2); Mean Corpuscular HGB Conc 32.4 GM/DL (32-36); Mean Corpuscular Volume 95.3 FL (87-102); Mean Platelet Volume 11.1 FL (9.6-12.0); Monocytes % 17.1 % (1.7-12.7); Neutrophils % 40.8 % (38.7-73.9); Platelet Count 111 T/CUMM (130-400); Red Blood Count 3.21 MC/CUMM (3.8-5.5); Red Cell Distribution Width 18.5 % (9.3-17.3); White Blood Count 6.8 T/CUMM (4-12)
[2019-05-21] MEDS: INSULIN REGULAR 100 UNIT/ML SUBCUT SCH ×2 (06:54→17:20)
[2019-05-21 07:13] LABS: Eosinophils 3 % (0-10); Lymphocytes 39 % (20-55); Segmented Neutrophils 47 % (50-85); Total Cells Counted 100
[2019-05-21 07:14] LABS: Hypochromasia 1+; Ovalocytes Slight; Platelet Estimate Decreased
[2019-05-21 07:15] LABS: Calcium 8.5 MG/DL (8.5-10.1); Osmolality,Calculated 271.2 MOS/KG (273-304)
[2019-05-21] MEDS: CALCIUM ACETATE 667 MG CAPSULE PO SCH ×3 (08:54→17:21)
[2019-05-21] MEDS: VALPROIC ACID 250 MG/5 ML UDCUP PO SCH ×2 (08:58→20:19)
[2019-05-21] MEDS: MENTHOL/ZINC OXIDE OINT 71 GM JAR TOP SCH ×2 (09:06→20:20)
[2019-05-21] MEDS: DOCUSATE SODIUM 100 MG CAPSULE PO SCH ×2 (09:25→20:19)
[2019-05-21] MEDS: CLINDAMYCIN 300 MG CAPSULE PO SCH ×3 (09:25→20:19)
[2019-05-21] MEDS: METOPROLOL TARTRATE 100 MG TABLET PO SCH ×2 (09:25→20:19)
[2019-05-21] MEDS: LACTULOSE 20 GM/30 ML UDCUP PO SCH (13:53)
[2019-05-21] MEDS: ASPIRIN EC 81 MG TABLET PO SCH (13:53)
[2019-05-21] MEDS: PANTOPRAZOLE 40 MG TABLET PO SCH (13:53)
[2019-05-21] MEDS: ENOXAPARIN 30 MG/0.3 ML SYRINGE SUBCUT SCH (20:19)
[2019-05-21] MEDS: ATORVASTATIN 20 MG TABLET PO SCH (20:19)
[2019-05-21] MEDS: INSULIN GLARGINE 100 UNIT/ML SUBCUT SCH (21:00)
[2019-05-22] MEDS: ALBUTEROL/IPRATROPIUM 3 ML NEB RESP TX SCH ×4 (01:26→19:48)
[2019-05-22 04:47] LABS: Basophils % 0.4 % (0.0-0.8); Eosinophils # 0.3 10*3/uL (0.0-0.87); Eosinophils % 3.7 % (0.00-10.9); Hemoglobin 9.4 GM/DL (14.0-18.0); Immature Granulocytes % 0.7 %; Immature Granulocytes Absolute 0.05 #; Lymphocytes # 2.3 10*3/uL (1.4-4.0); Lymphocytes % 34.1 % (21.2-54.2); Mean Corpuscular HGB Conc 32.4 GM/DL (32-36); Mean Platelet Volume 11.5 FL (9.6-12.0); Monocytes % 18.8 % (1.7-12.7); Neutrophils % 42.3 % (38.7-73.9); Platelet Count 102 T/CUMM (130-400); Red Blood Count 3.02 MC/CUMM (3.8-5.5); Red Cell Distribution Width 18.6 % (9.3-17.3); White Blood Count 6.7 T/CUMM (4-12)
[2019-05-22 05:11] LABS: Eosinophils 6 % (0-10); Lymphocytes 31 % (20-55); Segmented Neutrophils 49 % (50-85); Total Cells Counted 100
[2019-05-22 05:12] LABS: Hypochromasia 1+; Ovalocytes Slight; Platelet Estimate Decreased
[2019-05-22 05:24] LABS: Calcium 8.4 MG/DL (8.5-10.1); Osmolality,Calculated 269.1 MOS/KG (273-304)
[2019-05-22] MEDS: INSULIN REGULAR 100 UNIT/ML SUBCUT SCH ×2 (08:33→15:57)
[2019-05-22] MEDS: LACTULOSE 20 GM/30 ML UDCUP PO SCH (08:33)
[2019-05-22] MEDS: CLINDAMYCIN 300 MG CAPSULE PO SCH ×3 (08:33→20:34)
[2019-05-22] MEDS: PANTOPRAZOLE 40 MG TABLET PO SCH (08:34)
[2019-05-22] MEDS: CALCIUM ACETATE 667 MG CAPSULE PO SCH ×3 (08:34→16:13)
[2019-05-22] MEDS: DOCUSATE SODIUM 100 MG CAPSULE PO SCH ×2 (08:34→20:33)
[2019-05-22] MEDS: VALPROIC ACID 250 MG/5 ML UDCUP PO SCH ×2 (08:34→20:33)
[2019-05-22] MEDS: ASPIRIN EC 81 MG TABLET PO SCH (08:34)
[2019-05-22] MEDS: METOPROLOL TARTRATE 100 MG TABLET PO SCH ×2 (08:34→20:33)
[2019-05-22] MEDS: MENTHOL/ZINC OXIDE OINT 71 GM JAR TOP SCH ×2 (08:34→20:34)
[2019-05-22] MEDS: ENOXAPARIN 30 MG/0.3 ML SYRINGE SUBCUT SCH (20:33)
[2019-05-22] MEDS: ATORVASTATIN 20 MG TABLET PO SCH (20:33)
[2019-05-22] MEDS: INSULIN GLARGINE 100 UNIT/ML SUBCUT SCH (21:13)
[2019-05-23] MEDS: ALBUTEROL/IPRATROPIUM 3 ML NEB RESP TX SCH ×3 (00:35→13:20)
[2019-05-23 07:19] VITALS: BP 138/98
[2019-05-23] MEDS: INSULIN REGULAR 100 UNIT/ML SUBCUT SCH (08:12)
[2019-05-23] MEDS: CALCIUM ACETATE 667 MG CAPSULE PO SCH (15:19)
[2019-05-23] MEDS: ASPIRIN EC 81 MG TABLET PO SCH (15:19)
[2019-05-23] MEDS: MENTHOL/ZINC OXIDE OINT 71 GM JAR TOP SCH (15:20)
[2019-05-23] MEDS: CLINDAMYCIN 300 MG CAPSULE PO SCH (15:20)
[2019-05-23] MEDS: LACTULOSE 20 GM/30 ML UDCUP PO SCH (15:20)
[2019-05-23] MEDS: VALPROIC ACID 250 MG/5 ML UDCUP PO SCH (15:21)
[2019-05-23] MEDS: METOPROLOL TARTRATE 100 MG TABLET PO SCH (15:21)
[2019-05-23] MEDS: DOCUSATE SODIUM 100 MG CAPSULE PO SCH (15:21)
[2019-05-23] MEDS: PANTOPRAZOLE 40 MG TABLET PO SCH (15:22)
== END 2019-05-23 15:00 | DRG 252 ==
LOC: N.3E 17:12
PROVIDERS: ADMIT Internal Medicine; ATTEND Internal Medicine

== ENCOUNTER 2019-06-05 08:59 | Inpatient (IN) ==
[2019-06-05] MEDS ORDERED: cefTRIAXone 1,000 MG in SODIUM CHLORIDE 0.9% 100 ML IV STA (10:35)
[2019-06-05] MEDS ORDERED: ONDANSETRON 4 MG/2 ML VIAL IV PRN (10:37)
[2019-06-05] MEDS ORDERED: cefTRIAXone 1,000 MG in SYRINGE 1 EACH IV STA (10:37)
[2019-06-05] MEDS ORDERED: ACETAMINOPHEN 325 MG TABLET PO PRN (10:37)
[2019-06-05 10:57] LABS: Basophils % 0.4 % (0.0-0.8); Eosinophils # 0.2 10*3/uL (0.0-0.87); Eosinophils % 1.8 % (0.00-10.9); Hematocrit 45.7 VOL% (42.0-52.0); Hemoglobin 14.5 GM/DL (14.0-18.0); Immature Granulocytes % 0.6 %; Immature Granulocytes Absolute 0.06 #; Lymphocytes # 3.4 10*3/uL (1.4-4.0); Lymphocytes % 32.3 % (21.2-54.2); Mean Corpuscular HGB Conc 31.7 GM/DL (32-36); Mean Corpuscular Volume 99.3 FL (87-102); Monocytes % 9.3 % (1.7-12.7); Neutrophils % 55.6 % (38.7-73.9); Platelet Count 136 T/CUMM (130-400); Red Cell Distribution Width 19.6 % (9.3-17.3); White Blood Count 10.4 T/CUMM (4-12)
[2019-06-05 14:38] LABS: Calcium 10.3 MG/DL (8.5-10.1); Osmolality,Calculated 286.7 MOS/KG (273-304)
[2019-06-05 14:39] LABS: Troponin I 0.068 NG/ML (0.00-0.045)
[2019-06-05] MEDS: ALBUTEROL/IPRATROPIUM 3 ML NEB RESP TX SCH ×2 (15:00→19:46)
[2019-06-05] MEDS: METOPROLOL TARTRATE 100 MG TABLET PO SCH ×2 (15:39→21:33)
[2019-06-05] MEDS: methylPREDNISolone SOD SUC 40 MG/1 ML VIAL IV SCH ×2 (16:06→21:41)
[2019-06-05] MEDS: metroNIDAZOLE INJ 500 MG in PREMIX 1 EACH IV SCH ×2 (16:08→21:52)
[2019-06-05] MEDS: ATORVASTATIN 20 MG TABLET PO SCH (21:34)
[2019-06-05] MEDS: ASPIRIN EC 81 MG TABLET PO SCH (21:34)
[2019-06-05] MEDS: DOCUSATE SODIUM 100 MG CAPSULE PO SCH (21:34)
[2019-06-06] MEDS: ALBUTEROL/IPRATROPIUM 3 ML NEB RESP TX SCH ×4 (00:18→19:00)
[2019-06-06 04:40] LABS: Basophils % 0.3 % (0.0-0.8); Eosinophils % 0.2 % (0.00-10.9); Hematocrit 35.9 VOL% (42.0-52.0); Hemoglobin 11.3 GM/DL (14.0-18.0); Immature Granulocytes % 0.6 %; Immature Granulocytes Absolute 0.04 #; Lymphocytes # 1.1 10*3/uL (1.4-4.0); Lymphocytes % 16.5 % (21.2-54.2); Mean Corpuscular HGB Conc 31.5 GM/DL (32-36); Mean Corpuscular Volume 99.4 FL (87-102); Mean Platelet Volume 11.6 FL (9.6-12.0); Monocytes % 5.4 % (1.7-12.7); Platelet Count 124 T/CUMM (130-400); Red Blood Count 3.61 MC/CUMM (3.8-5.5); Red Cell Distribution Width 18.6 % (9.3-17.3); White Blood Count 6.4 T/CUMM (4-12)
[2019-06-06 05:08] LABS: Alanine Aminotransferase < 6 U/L (16-61); Albumin 2.2 G/DL (3.4-5.0); Alkaline Phosphatase 69 U/L (45-117); Aspartate Amino Transferase 15 U/L (0-37); Blood Urea Nitrogen 27 MG/DL (7-18); Calcium 9.6 MG/DL (8.5-10.1); Estimated Glom Filtration Rate 11 ML/MIN; Glucose 168 MG/DL (74-106); Osmolality,Calculated 278.1 MOS/KG (273-304); Total Protein 6.5 G/DL (6.4-8.3)
[2019-06-06] MEDS: methylPREDNISolone SOD SUC 40 MG/1 ML VIAL IV SCH ×3 (06:00→22:03)
[2019-06-06] MEDS: metroNIDAZOLE INJ 500 MG in PREMIX 1 EACH IV SCH ×3 (06:02→22:00)
[2019-06-06] MEDS: DOCUSATE SODIUM 100 MG CAPSULE PO SCH ×2 (09:05→22:00)
[2019-06-06] MEDS: METOPROLOL TARTRATE 100 MG TABLET PO SCH ×2 (09:05→20:10)
[2019-06-06] MEDS: PANTOPRAZOLE 40 MG TABLET PO SCH (09:05)
[2019-06-06] MEDS: cefTRIAXone 1,000 MG in SYRINGE 1 EACH IV SCH (09:05)
[2019-06-06] MEDS: ASPIRIN EC 81 MG TABLET PO SCH (22:00)
[2019-06-06] MEDS: ATORVASTATIN 20 MG TABLET PO SCH (22:00)
[2019-06-07] MEDS: ALBUTEROL/IPRATROPIUM 3 ML NEB RESP TX SCH ×4 (00:15→19:15)
[2019-06-07] MEDS: methylPREDNISolone SOD SUC 40 MG/1 ML VIAL IV SCH ×4 (06:08→23:31)
[2019-06-07] MEDS: metroNIDAZOLE INJ 500 MG in PREMIX 1 EACH IV SCH ×3 (06:08→21:00)
[2019-06-07 06:23] LABS: Calcium 9.3 MG/DL (8.5-10.1); Osmolality,Calculated 284.8 MOS/KG (273-304)
[2019-06-07 06:41] LABS: Basophils % 0.1 % (0.0-0.8); Hematocrit 41.2 VOL% (42.0-52.0); Hemoglobin 12.5 GM/DL (14.0-18.0); Immature Granulocytes % 1.1 %; Immature Granulocytes Absolute 0.09 #; Lymphocytes # 1.4 10*3/uL (1.4-4.0); Lymphocytes % 16.4 % (21.2-54.2); Mean Corpuscular HGB Conc 30.3 GM/DL (32-36); Mean Corpuscular Volume 103.3 FL (87-102); Monocytes % 11.8 % (1.7-12.7); Neutrophils % 70.6 % (38.7-73.9); Platelet Count 111 T/CUMM (130-400); Red Blood Count 3.99 MC/CUMM (3.8-5.5); Red Cell Distribution Width 18.6 % (9.3-17.3); White Blood Count 8.5 T/CUMM (4-12)
[2019-06-07] MEDS: PANTOPRAZOLE 40 MG TABLET PO SCH (08:25)
[2019-06-07] MEDS: cefTRIAXone 1,000 MG in SYRINGE 1 EACH IV SCH (08:25)
[2019-06-07] MEDS: DOCUSATE SODIUM 100 MG CAPSULE PO SCH ×2 (08:25→20:51)
[2019-06-07] MEDS: METOPROLOL TARTRATE 100 MG TABLET PO SCH ×2 (08:25→20:50)
[2019-06-07] MEDS: INSULIN REGULAR 100 UNIT/ML SUBCUT SCH (20:50)
[2019-06-07] MEDS: ATORVASTATIN 20 MG TABLET PO SCH (20:50)
[2019-06-07] MEDS: ASPIRIN EC 81 MG TABLET PO SCH (20:51)
[2019-06-07] MEDS ORDERED: traMADol 50 MG TABLET PO PRN (22:43)
[2019-06-07] MEDS ORDERED: MAGNESIUM HYDROXIDE SUSP 30 ML UDCUP PO PRN (22:43)
[2019-06-07] MEDS ORDERED: INSULIN REGULAR 100 UNIT/ML IV ONE (23:54)
[2019-06-08] MEDS: LEVALBUTEROL 1.25 MG/3 ML NEB RESP TX SCH ×4 (01:34→19:19)
[2019-06-08] MEDS: INSULIN REGULAR 100 UNIT/ML SUBCUT SCH ×5 (02:38→21:04)
[2019-06-08 05:01] LABS: Basophils % 0.2 % (0.0-0.8); Hematocrit 36.3 VOL% (42.0-52.0); Hemoglobin 11.2 GM/DL (14.0-18.0); Immature Granulocytes % 1.2 %; Immature Granulocytes Absolute 0.08 #; Lymphocytes # 0.8 10*3/uL (1.4-4.0); Lymphocytes % 12.7 % (21.2-54.2); Mean Corpuscular HGB Conc 30.9 GM/DL (32-36); Mean Corpuscular Volume 101.1 FL (87-102); Mean Platelet Volume 11.7 FL (9.6-12.0); Monocytes % 8.9 % (1.7-12.7); NRBC # 0.02 10*3/uL; Platelet Count 137 T/CUMM (130-400); Red Blood Count 3.59 MC/CUMM (3.8-5.5); Red Cell Distribution Width 18.5 % (9.3-17.3); White Blood Count 6.6 T/CUMM (4-12)
[2019-06-08] MEDS: DIVALPROEX 500 MG TABLET PO SCH ×2 (05:10→18:17)
[2019-06-08] MEDS: methylPREDNISolone SOD SUC 40 MG/1 ML VIAL IV SCH ×3 (05:10→21:10)
[2019-06-08 05:27] LABS: Calcium 9.2 MG/DL (8.5-10.1)
[2019-06-08] MEDS: metroNIDAZOLE INJ 500 MG in PREMIX 1 EACH IV SCH ×3 (05:47→21:13)
[2019-06-08] MEDS ORDERED: MENTHOL/ZINC OXIDE OINT 71 GM JAR TOP PRN (09:00)
[2019-06-08] MEDS: cefTRIAXone 1,000 MG in SYRINGE 1 EACH IV SCH (09:27)
[2019-06-08] MEDS: ACETAMINOPHEN 500 MG TABLET PO SCH ×2 (09:28→16:57)
[2019-06-08] MEDS: LACTULOSE 20 GM/30 ML UDCUP PO SCH (09:28)
[2019-06-08] MEDS: METOPROLOL TARTRATE 100 MG TABLET PO SCH ×2 (09:28→21:04)
[2019-06-08] MEDS: DOCUSATE SODIUM 100 MG CAPSULE PO SCH ×4 (09:28→21:05)
[2019-06-08] MEDS: CALCIUM ACETATE 667 MG CAPSULE PO SCH ×3 (09:28→16:57)
[2019-06-08] MEDS: PANTOPRAZOLE 40 MG TABLET PO SCH (09:28)
[2019-06-08] MEDS: BISACODYL 5 MG TABLET PO SCH (18:17)
[2019-06-08] MEDS: ATORVASTATIN 20 MG TABLET PO SCH (21:04)
[2019-06-08] MEDS: ASPIRIN EC 81 MG TABLET PO SCH (21:04)
[2019-06-09] MEDS: BISACODYL 5 MG TABLET PO SCH ×2 (01:38→10:07)
[2019-06-09] MEDS: LEVALBUTEROL 1.25 MG/3 ML NEB RESP TX SCH ×3 (01:58→13:19)
[2019-06-09 05:06] LABS: Basophils % 0.4 % (0.0-0.8); Hematocrit 36.9 VOL% (42.0-52.0); Hemoglobin 11.9 GM/DL (14.0-18.0); Lymphocytes # 2.4 10*3/uL (1.4-4.0); Lymphocytes % 24.5 % (21.2-54.2); Mean Corpuscular HGB Conc 32.2 GM/DL (32-36); Mean Corpuscular Volume 97.6 FL (87-102); Mean Platelet Volume 11.1 FL (9.6-12.0); Monocytes % 10.9 % (1.7-12.7); NRBC # 0.02 10*3/uL; Neutrophils % 62.2 % (38.7-73.9); Platelet Count 137 T/CUMM (130-400); Red Blood Count 3.78 MC/CUMM (3.8-5.5); Red Cell Distribution Width 18.4 % (9.3-17.3); White Blood Count 9.9 T/CUMM (4-12)
[2019-06-09 05:51] LABS: Albumin 2.4 G/DL (3.4-5.0); Bilirubin,Total 0.6 MG/DL (0.2-1.0); Calcium 9.3 MG/DL (8.5-10.1); Osmolality,Calculated 287.8 MOS/KG (273-304); Total Protein 6.8 G/DL (6.4-8.3)
[2019-06-09] MEDS: DIVALPROEX 500 MG TABLET PO SCH (05:52)
[2019-06-09] MEDS: methylPREDNISolone SOD SUC 40 MG/1 ML VIAL IV SCH ×2 (05:53→13:45)
[2019-06-09] MEDS: metroNIDAZOLE INJ 500 MG in PREMIX 1 EACH IV SCH ×2 (05:57→13:46)
[2019-06-09] MEDS: cefTRIAXone 1,000 MG in SYRINGE 1 EACH IV SCH (09:45)
[2019-06-09] MEDS: INSULIN REGULAR 100 UNIT/ML SUBCUT SCH ×2 (09:45→13:44)
[2019-06-09] MEDS: CALCIUM ACETATE 667 MG CAPSULE PO SCH ×2 (09:46→13:46)
[2019-06-09] MEDS: DOCUSATE SODIUM 100 MG CAPSULE PO SCH ×2 (09:46→09:47)
[2019-06-09] MEDS: LACTULOSE 20 GM/30 ML UDCUP PO SCH (09:46)
[2019-06-09] MEDS: ACETAMINOPHEN 500 MG TABLET PO SCH (09:46)
[2019-06-09] MEDS: METOPROLOL TARTRATE 100 MG TABLET PO SCH (09:47)
[2019-06-09] MEDS: PANTOPRAZOLE 40 MG TABLET PO SCH (09:47)
[2019-06-09 13:16] VITALS: BP 107/59
== END 2019-06-09 16:38 | disposition home or self-care (01) | DRG 193 ==
LOC: EDUNIT# → EDBD → N.ED 08:59 → SUPCPDRO 10:36 → N.EDINP 10:36 → N.5E 11:10 → N.CC 13:07 → N.5E 06-08 05:28
PROVIDERS: ADMIT Internal Medicine; ATTEND Internal Medicine

== ENCOUNTER 2019-07-02 12:54 | Inpatient (IN) ==
[2019-07-02 16:46] LABS: Basophils % 0.5 % (0.0-0.8); Eosinophils % 0.4 % (0.00-10.9); Hematocrit 39.4 VOL% (42.0-52.0); Hemoglobin 12.5 GM/DL (14.0-18.0); Immature Granulocytes % 0.4 %; Immature Granulocytes Absolute 0.02 #; Mean Corpuscular HGB Conc 31.7 GM/DL (32-36); Mean Corpuscular Volume 101.5 FL (87-102); Mean Platelet Volume 12.1 FL (9.6-12.0); Monocytes % 9.7 % (1.7-12.7); Platelet Count 84 T/CUMM (130-400); Red Blood Count 3.88 MC/CUMM (3.8-5.5); Red Cell Distribution Width 16.2 % (9.3-17.3); White Blood Count 5.6 T/CUMM (4-12)
[2019-07-02 16:55] LABS: PT Patient Result 10.8 SECS (9.8-11.9); Partial Thromboplastin Time 26.7 SECS (23.9-33.8)
[2019-07-02] MEDS ORDERED: METOPROLOL TARTRATE 5 MG/5 ML VIAL IV STA (17:01)
[2019-07-02 17:02] LABS: Albumin 2.5 G/DL (3.4-5.0); Bilirubin,Total 0.4 MG/DL (0.2-1.0); Calcium 9.4 MG/DL (8.5-10.1); Osmolality,Calculated 279.8 MOS/KG (273-304); Total Protein 6.5 G/DL (6.4-8.3)
[2019-07-02] MEDS ORDERED: dilTIAZem Drip 125 MG/125 ML PREMIX IV ONE (17:21)
[2019-07-02] MEDS: dilTIAZem Drip 125 MG/125 ML PREMIX IV SCH (17:29)
[2019-07-02] MEDS ORDERED: ONDANSETRON 4 MG/2 ML VIAL IV PRN (22:24)
[2019-07-02] MEDS ORDERED: ACETAMINOPHEN 325 MG TABLET PO PRN (22:24)
[2019-07-02] MEDS ORDERED: SODIUM CHLORIDE 0.9% 1,000 ML IV SCH (22:24)
[2019-07-02] MEDS ORDERED: GLUCAGON 1 MG VIAL IM PRN (22:24)
[2019-07-02] MEDS ORDERED: DEXTROSE 10% 250 ML BAG IV PRN (22:27)
[2019-07-02] MEDS: DOCUSATE SODIUM 100 MG CAPSULE PO SCH (22:42)
[2019-07-02] MEDS: INSULIN LISPRO 100 UNIT/ML SUBCUT SCH (23:32)
[2019-07-03] MEDS ORDERED: ACETAMINOPHEN 650 MG SUPP RECTAL PRN (01:01)
[2019-07-03 03:59] LABS: ABG HCO3 28.5 MMOL/L (20-26); ABG Oxygen Saturation 78.2 % (95-100); ABG PCO2 42.5 MM HG (35-48); ABG PH 7.451 (7.35-7.45); ABG PO2 43.4 MM HG (80-95)
[2019-07-03] MEDS ORDERED: cefTRIAXone 1,000 MG in SYRINGE 1 EACH IV ONE (04:00)
[2019-07-03] MEDS: DOCUSATE SODIUM 100 MG CAPSULE PO SCH ×3 (08:18→21:48)
[2019-07-03] MEDS: PANTOPRAZOLE 40 MG TABLET PO SCH ×2 (08:18→10:45)
[2019-07-03] MEDS: INSULIN LISPRO 100 UNIT/ML SUBCUT SCH ×2 (08:38→11:51)
[2019-07-03 09:35] LABS: Calcium 8.9 MG/DL (8.5-10.1); Osmolality,Calculated 288.7 MOS/KG (273-304)
[2019-07-03] MEDS: ALBUMIN 25% 25 GM in PREMIX 1 EACH IV SCH ×2 (11:51→18:15)
[2019-07-03] MEDS ORDERED: DEXTROSE 50% 25 GM/50 ML VIAL IV PRN (13:08)
[2019-07-03] MEDS ORDERED: GLUCAGON 1 MG VIAL IM PRN (13:08)
[2019-07-03] MEDS: cefTRIAXone 500 MG in SYRINGE 1 EACH IV SCH (13:37)
[2019-07-03] MEDS: metroNIDAZOLE INJ 500 MG in PREMIX 1 EACH IV SCH ×2 (13:37→22:54)
[2019-07-03] MEDS: methylPREDNISolone SOD SUC 40 MG/1 ML VIAL IV SCH ×2 (13:38→22:50)
[2019-07-03] MEDS: dilTIAZem Drip 125 MG/125 ML PREMIX IV SCH (18:32)
[2019-07-03] MEDS: INSULIN REGULAR 100 UNIT/ML SUBCUT SCH ×2 (19:08→21:50)
[2019-07-04] MEDS: ALBUMIN 25% 25 GM in PREMIX 1 EACH IV SCH ×3 (02:56→18:51)
[2019-07-04] MEDS: metroNIDAZOLE INJ 500 MG in PREMIX 1 EACH IV SCH ×3 (06:43→21:10)
[2019-07-04] MEDS: methylPREDNISolone SOD SUC 40 MG/1 ML VIAL IV SCH ×3 (06:43→21:12)
[2019-07-04] MEDS: INSULIN REGULAR 100 UNIT/ML SUBCUT SCH ×4 (07:52→21:13)
[2019-07-04] MEDS: DOCUSATE SODIUM 100 MG CAPSULE PO SCH ×2 (09:46→21:13)
[2019-07-04] MEDS: PANTOPRAZOLE 40 MG TABLET PO SCH (09:46)
[2019-07-04] MEDS: dilTIAZem Drip 125 MG/125 ML PREMIX IV SCH ×2 (09:47→18:50)
[2019-07-04] MEDS ORDERED: PHENYLEPHRINE DRIP 40 MG/250 ML PREMIX IV PRN (10:53)
[2019-07-04 12:20] LABS: Basophils % 0.4 % (0.0-0.8); Immature Granulocytes % 14.6 %; Immature Granulocytes Absolute 0.83 #; Lymphocytes # 0.6 10*3/uL (1.4-4.0); Lymphocytes % 10.5 % (21.2-54.2); Mean Corpuscular HGB Conc 31.3 GM/DL (32-36); Mean Corpuscular Volume 101.9 FL (87-102); Monocytes % 3.3 % (1.7-12.7); Neutrophils % 71.2 % (38.7-73.9); Platelet Count 68 T/CUMM (130-400); Red Blood Count 3.14 MC/CUMM (3.8-5.5); Red Cell Distribution Width 16.4 % (9.3-17.3); White Blood Count 5.7 T/CUMM (4-12)
[2019-07-04] MEDS: SODIUM CHLORIDE 0.9% 1,000 ML IV SCH (12:27)
[2019-07-04] MEDS: ZINC SULFATE 220 MG CAPSULE PO SCH (12:27)
[2019-07-04 12:56] LABS: Alanine Aminotransferase < 9 U/L (16-61); Albumin 2.7 G/DL (3.4-5.0); Alkaline Phosphatase 23 U/L (45-117); Aspartate Amino Transferase 29 U/L (0-37); Blood Urea Nitrogen 45 MG/DL (7-18); Calcium 8.3 MG/DL (8.5-10.1); Estimated Glom Filtration Rate 6 ML/MIN; Glucose 187 MG/DL (74-106); Osmolality,Calculated 293.5 MOS/KG (273-304); Total Protein 5.8 G/DL (6.4-8.3)
[2019-07-04 13:28] LABS: Band Neutrophils 6 % (0-10); Lymphocytes 13 % (20-55); Metamyelocytes 13 %; Myelocytes 4 %; Segmented Neutrophils 64 % (50-85); Total Cells Counted 100
[2019-07-04 13:29] LABS: Hypochromasia 2+; Macrocytosis 2+; Platelet Estimate Adequate; Toxic Granulation 1+
[2019-07-04 13:30] LABS: Ovalocytes Few; Polychromasia Slight; Schistocytes Few
[2019-07-04] MEDS: cefTRIAXone 500 MG in SYRINGE 1 EACH IV SCH (14:30)
[2019-07-04] MEDS: MENTHOL/ZINC OXIDE OINT 71 GM JAR TOP SCH ×2 (16:12→21:13)
[2019-07-04] MEDS: HYDROXYCHLOROQUINE 200 MG TABLET PO SCH (21:13)
[2019-07-05] MEDS: ALBUMIN 25% 25 GM in PREMIX 1 EACH IV SCH ×3 (03:42→18:40)
[2019-07-05 04:58] LABS: Basophils % 0.4 % (0.0-0.8); Hematocrit 30.5 VOL% (42.0-52.0); Hemoglobin 9.5 GM/DL (14.0-18.0); Immature Granulocytes % 21.7 %; Immature Granulocytes Absolute 1.21 #; Lymphocytes # 0.3 10*3/uL (1.4-4.0); Lymphocytes % 4.8 % (21.2-54.2); Mean Corpuscular HGB Conc 31.1 GM/DL (32-36); Mean Corpuscular Volume 101.7 FL (87-102); Mean Platelet Volume 12.4 FL (9.6-12.0); Monocytes % 2.2 % (1.7-12.7); Neutrophils % 70.9 % (38.7-73.9); Platelet Count 67 T/CUMM (130-400); White Blood Count 5.6 T/CUMM (4-12)
[2019-07-05] MEDS: metroNIDAZOLE INJ 500 MG in PREMIX 1 EACH IV SCH ×3 (05:00→21:05)
[2019-07-05] MEDS: methylPREDNISolone SOD SUC 40 MG/1 ML VIAL IV SCH ×3 (05:00→21:00)
[2019-07-05] MEDS: SODIUM CHLORIDE 0.9% 1,000 ML IV SCH ×2 (05:20→18:40)
[2019-07-05 05:22] LABS: Band Neutrophils 11 % (0-10); Lymphocytes 5 % (20-55); Segmented Neutrophils 79 % (50-85); Total Cells Counted 100
[2019-07-05 05:23] LABS: Alanine Aminotransferase < 9 U/L (16-61); Albumin 3.2 G/DL (3.4-5.0); Alkaline Phosphatase 33 U/L (45-117); Aspartate Amino Transferase 26 U/L (0-37); Blood Urea Nitrogen 38 MG/DL (7-18); Calcium 8.5 MG/DL (8.5-10.1); Estimated Glom Filtration Rate 9 ML/MIN; Glucose 217 MG/DL (74-106); Hypochromasia 1+; Osmolality,Calculated 294.4 MOS/KG (273-304); Ovalocytes Slight; Platelet Estimate Decreased; Total Protein 6.2 G/DL (6.4-8.3)
[2019-07-05] MEDS ORDERED: METOPROLOL TARTRATE 5 MG/5 ML VIAL IV ONE (07:46)
[2019-07-05] MEDS ORDERED: METOPROLOL TARTRATE 50 MG TABLET PO SCH (09:00)
[2019-07-05] MEDS: DOCUSATE SODIUM 100 MG CAPSULE PO SCH ×2 (11:12→20:28)
[2019-07-05] MEDS: MENTHOL/ZINC OXIDE OINT 71 GM JAR TOP SCH ×2 (11:12→20:28)
[2019-07-05] MEDS: AMIODARONE 200 MG TABLET PO SCH ×2 (11:12→20:28)
[2019-07-05] MEDS: HYDROXYCHLOROQUINE 200 MG TABLET PO SCH ×2 (11:13→20:28)
[2019-07-05] MEDS: INSULIN REGULAR 100 UNIT/ML SUBCUT SCH ×3 (11:13→15:50)
[2019-07-05] MEDS: PANTOPRAZOLE 40 MG TABLET PO SCH (11:13)
[2019-07-05] MEDS: cefTRIAXone 500 MG in SYRINGE 1 EACH IV SCH (15:54)
[2019-07-05] MEDS ORDERED: GLUCAGON 1 MG VIAL IM PRN (16:05)
[2019-07-05] MEDS ORDERED: DEXTROSE 50% 25 GM/50 ML VIAL IV PRN (16:05)
[2019-07-05] MEDS: METOPROLOL TARTRATE 100 MG TABLET PO SCH (20:28)
[2019-07-06] MEDS: INSULIN REGULAR 100 UNIT/ML SUBCUT SCH ×4 (00:15→18:10)
[2019-07-06] MEDS: ALBUMIN 25% 25 GM in PREMIX 1 EACH IV SCH ×3 (03:05→20:15)
[2019-07-06] MEDS: methylPREDNISolone SOD SUC 40 MG/1 ML VIAL IV SCH ×3 (05:25→22:10)
[2019-07-06] MEDS: metroNIDAZOLE INJ 500 MG in PREMIX 1 EACH IV SCH ×3 (05:26→22:15)
[2019-07-06 08:09] LABS: Basophils % 0.2 % (0.0-0.8); Hemoglobin 9.1 GM/DL (14.0-18.0); Immature Granulocytes Absolute 0.06 #; Lymphocytes # 0.5 10*3/uL (1.4-4.0); Lymphocytes % 7.8 % (21.2-54.2); Mean Corpuscular HGB Conc 31.4 GM/DL (32-36); Mean Corpuscular Volume 100.3 FL (87-102); Mean Platelet Volume 11.4 FL (9.6-12.0); Monocytes % 3.1 % (1.7-12.7); Neutrophils % 87.9 % (38.7-73.9); Red Blood Count 2.89 MC/CUMM (3.8-5.5); White Blood Count 5.8 T/CUMM (4-12)
[2019-07-06 08:10] LABS: Platelet Count 59 T/CUMM (130-400)
[2019-07-06 08:28] LABS: Calcium 8.9 MG/DL (8.5-10.1); Osmolality,Calculated 306.1 MOS/KG (273-304)
[2019-07-06 08:30] LABS: Band Neutrophils 3 % (0-10); Hypochromasia 1+; Lymphocytes 6 % (20-55); Ovalocytes Slight; Platelet Estimate Decreased; Segmented Neutrophils 88 % (50-85); Total Cells Counted 100
[2019-07-06] MEDS ORDERED: DILTIAZEM 30 MG TABLET PO SCH (09:00)
[2019-07-06] MEDS: DOCUSATE SODIUM 100 MG CAPSULE PO SCH ×2 (09:20→21:30)
[2019-07-06] MEDS: METOPROLOL TARTRATE 100 MG TABLET PO SCH ×2 (09:20→21:30)
[2019-07-06] MEDS: AMIODARONE 200 MG TABLET PO SCH ×2 (09:20→21:30)
[2019-07-06] MEDS: MENTHOL/ZINC OXIDE OINT 71 GM JAR TOP SCH ×2 (09:20→21:30)
[2019-07-06] MEDS: HYDROXYCHLOROQUINE 200 MG TABLET PO SCH ×2 (09:20→21:30)
[2019-07-06] MEDS: PANTOPRAZOLE 40 MG TABLET PO SCH (09:20)
[2019-07-06] MEDS: ZINC SULFATE 220 MG CAPSULE PO SCH (12:52)
[2019-07-06] MEDS: DILTIAZEM 30 MG TABLET PO SCH ×4 (12:52→21:30)
[2019-07-06] MEDS: METOPROLOL TARTRATE 5 MG/5 ML VIAL IV SCH ×5 (12:52→13:45)
[2019-07-06] MEDS: SODIUM CHLORIDE 0.9% 1,000 ML IV SCH (12:52)
[2019-07-06] MEDS ORDERED: dilTIAZem Drip 125 MG/125 ML PREMIX IV SCH (14:30)
[2019-07-06] MEDS: cefTRIAXone 500 MG in SYRINGE 1 EACH IV SCH (15:00)
[2019-07-06 17:12] LABS: ABG Base Excess 0.6 MMOL/L (-2.5-2.5); ABG HCO3 24.7 MMOL/L (20-26); ABG Oxygen Saturation 83.2 % (95-100); ABG PCO2 39.7 MM HG (35-48); ABG PH 7.409 (7.35-7.45); ABG PO2 51.1 MM HG (80-95); ABG TCO2 23.1 MMOL/L (23-27); Allen Test Positive
[2019-07-06] MEDS ORDERED: ASCORBIC ACID 500 MG TABLET PO SCH (21:00)
[2019-07-06] MEDS ORDERED: ETOMIDATE 20 MG/10 ML VIAL IV ONE ×2 (23:30→23:36)
[2019-07-06] MEDS ORDERED: VECURONIUM 10 MG VIAL IV ONE ×2 (23:30→23:37)
[2019-07-06 23:33] LABS: ABG Base Excess -11.2 MMOL/L (-2.5-2.5); ABG HCO3 15.3 MMOL/L (20-26); ABG Oxygen Saturation 76.4 % (95-100); ABG PCO2 31.8 MM HG (35-48); ABG PH 7.274 (7.35-7.45); ABG PO2 51.2 MM HG (80-95); ABG TCO2 13.7 MMOL/L (23-27)
[2019-07-06] MEDS ORDERED: SODIUM BICARBONATE 50 MEQ/50 ML VIAL IV ONE ×2 (23:41→23:45)
[2019-07-07] MEDS: INSULIN REGULAR 100 UNIT/ML SUBCUT SCH ×2 (00:20→06:05)
[2019-07-07 03:00] LABS: ABG Base Excess -4.8 MMOL/L (-2.5-2.5); ABG Oxygen Saturation 73.3 % (95-100); ABG PCO2 59.4 MM HG (35-48); ABG PH 7.216 (7.35-7.45); ABG PO2 51.5 MM HG (80-95); ABG TCO2 22.1 MMOL/L (23-27)
[2019-07-07] MEDS ORDERED: NOREPINEPHRINE 4 MG/4 ML VIAL IV ONE (04:55)
[2019-07-07] MEDS ORDERED: SODIUM BICARBONATE 50 MEQ/50 ML SYRINGE IV ONE (04:59)
[2019-07-07] MEDS ORDERED: ATROPINE 1 MG/10 ML SYRINGE ONE (04:59)
[2019-07-07] MEDS ORDERED: NOREPINEPHRINE 8 MG in SODIUM CHLORIDE 0.9% 242 ML IV PRN (05:00)
[2019-07-07] MEDS: methylPREDNISolone SOD SUC 40 MG/1 ML VIAL IV SCH (06:17)
[2019-07-07] MEDS: metroNIDAZOLE INJ 500 MG in PREMIX 1 EACH IV SCH (06:18)
[2019-07-07] MEDS: ALBUMIN 25% 25 GM in PREMIX 1 EACH IV SCH (06:18)
[2019-07-07 08:42] VITALS: BP 59/42
[2019-07-12] MEDS ORDERED: AMIODARONE 200 MG TABLET PO SCH (09:00)
== END 2019-07-07 07:49 | disposition expired | DRG 208 ==
LOC: EDUNIT# → N.ED 12:54 → N.EDINP 17:55 → N.2E 18:24 → N.ICU 07-04 06:10
PROVIDERS: ADMIT Internal Medicine; ATTEND Internal Medicine